=== PATIENT | female | born 1970 | race Caucasian/White ===

== ENCOUNTER 2018-05-20 08:21 | Emergency (ER) | payer SELFPAY ==
[2018-05-20] MEDS ORDERED: cloNIDine HCl 0.1 MG TAB ONE (08:56)
--- NOTE | 2018-05-20 09:07 | RAD REPORT ---
EXAM DESCRIPTION: CT - Head Brain Wo Cont - 05/20/2018 8:51 am CLINICAL HISTORY: Headache COMPARISON: None. TECHNIQUE: Computed axial tomography of the head was obtained. IV contrast was not requested. All CT scans are performed using dose optimization technique as appropriate and may include automated exposure control or mA/KV adjustment according to patient size. FINDINGS: An intracranial bleed is not seen . The ventricles are normal in caliber. No extra-axial fluid collection is noted. Fluid within the sinuses/ mastoids is not seen. IMPRESSION: No acute intracranial abnormality is seen. If patient's symptoms persist MRI of the bra in would be recommended.
[2018-05-20 09:08] LABS: Absolute Lymphocytes (CBC) 2.4 K/uL (0.7-4.9); Absolute Monocytes 0.8 K/uL (0.1-1.3); Absolute Neutrophil 7.3 K/uL (1.8-8.0); Basophils % 0.5 % (0-1.3); Eosinophils % 2.8 % (0-4.4); Hematocrit 34.3 % (36.0-45.0); MCV 83.5 fL (80-100); MPV 10.1 fL (7.6-11.3); RBC Red Blood Cell Count 4.11 M/uL (3.86-4.86)
[2018-05-20 09:09] LABS: Protime INR 1.12
[2018-05-20 09:29] LABS: ALT/SGPT 22 U/L (12-78); AST/SGOT 16 U/L (15-37); Albumin 3.3 g/dL (3.4-5.0); Alkaline Phosphatase 76 U/L (45-117); BUN Blood Urea Nitrogen 18 mg/dL (7-18); Bicarbonate 29 mmol/L (21-32); Bilirubin Direct < 0.1 mg/dL (0-0.2); Bilirubin Total 0.1 mg/dL (0.2-1.0); Glucose Level 97 mg/dL (74-106); Magnesium 2.5 mg/dL (1.8-2.4); NT PRO-BNP 257 pg/mL (<125); Potassium 3.9 mmol/L (3.5-5.1); Protein, Total 7.1 g/dL (6.4-8.2); Sodium Level 141 mmol/L (136-145); Troponin (Emerg Dept Use Only) < 0.02 ng/mL (0.0-0.045)
--- NOTE | 2018-05-20 09:29 | RAD REPORT ---
EXAM DESCRIPTION: Fat[facility] Single View05/20/2018 9:22 am CLINICAL HISTORY: Chest pain COMPARISON: none FINDINGS: The lungs appear clear of acute infiltrate. The heart is borderline enlarged IMPRESSION: No acute abnormalities displayed
--- NOTE | 2018-05-20 10:51 | EDPHYS ---
Physician Documentation [facility] Name: Kitty Tejeda Age: 47 yrs Sex: Female : 1970 Arrival Date: 05/20/2018 Time: 08:23 Bed 6 Private MD: ED Physician Igor Woodson HPI: 05/20 08:41 This 47 yrs old Female presents to ER via Ambulatory with complaints of kdr Headache. 08:41 The patient complains of pain to the left frontal area, left side of the back of head kdr and left temporal area. The patient describes the headache as aching, intermittent, unrelenting, waxing and waning. Onset: The symptoms/episode began/occurred She is unable to say how long she this particular BEACH has been ongoing. However, it has been at the current level for about a week. This BEACH is not different in location or severity from prior BEACH. She has a long BEACH history. She is new to the area and this ED. Associated signs and symptoms: Pertinent positives: Photophobia Very mild, Pertinent negatives: altered mental status, dizziness, fever, malaise, neck stiffness, paresthesias, rash, sinus congestion, sinus tenderness, vision changes, vision loss, vomiting, weakness, vertigo. Severity of symptoms: At its worst the pain was moderate, in the emergency department the pain is unchanged. Headache History: The patient has had previous headaches and this one is similar to previous episodes. The symptoms are alleviated by nothing. the symptoms are aggravated by nothing. The patient has experienced similar episodes in the past, chronically. The patient has not recently seen a physician, A normal BP for her would be about 200 SBP. Historical: - Allergies: 08:35 No Known Allergies; ss - PMHx: 08:35 Migraines; Hypertension; ss - Immunization history:: Adult Immunizations up to date. - Ebola Screening: : Patient denies exposure to infectious person Patient denies travel to an Ebola-affected area in the 21 days before illness onset. - Social history:: Smoking status: Patient/guardian denies using tobacco. ROS: 09:34 Constitutional: Negative for fever, chills, and weight loss, Eyes: Negative for injury, kdr pain, redness, and discharge, ENT: Negative for injury, pain, and discharge, Neck: Negative for injury, pain, and swelling, Cardiovascular: Negative for chest pain, palpitations, and edema, Respiratory: Negative for shortness of breath, cough, wheezing, and pleuritic chest pain, Abdomen/GI: Negative for abdominal pain, nausea, vomiting, diarrhea, and constipation, Back: Negative for injury and pain, : Negative for injury, bleeding, discharge, and swelling, MS/Extremity: Negative for injury and deformity, Skin: Negative for injury, rash, and discoloration, Psych: Negative for depression, anxiety, suicide ideation, homicidal ideation, and hallucinations, Allergy/Immunology: Negative for hives, rash, and allergies, Endocrine: Negative for neck swelling, polydipsia, polyuria, polyphagia, and marked weight changes, Hematologic/Lymphatic: Negative for swollen nodes, abnormal bleeding, and unusual bruising. 09:34 Neuro: Positive for headache, Negative for altered mental status, dizziness, gait disturbance, numbness, seizure activity, speech changes, syncope, near syncope, tingling, tinnitus, tremor, visual changes. Exam: 09:34 Constitutional: This is a well developed, well nourished patient who is awake, alert, kdr and in no acute distress. Head/Face: Normocephalic, atraumatic. Eyes: Pupils equal round and reactive to light, extra-ocular motions intact. Lids and lashes normal. Conjunctiva and sclera are non-icteric and not injected. Cornea within normal limits. Periorbital areas with no swelling, redness, or edema. Neck: Trachea midline, no thyromegaly or masses palpated, and no cervical lymphadenopathy. Supple, full range of motion without nuchal rigidity, or vertebral point tenderness. No Meningismus. Chest/axilla: Normal chest wall appearance and motion. Nontender with no deformity. No lesions are appreciated. Cardiovascular: Regular rate and rhythm with a normal S1 and S2. No gallops, murmurs, or rubs. Normal PMI, no JVD. No pulse deficits. Respiratory: Lungs have equal breath sounds bilaterally, clear to auscultation and percussion. No rales, rhonchi or wheezes noted. No increased work of breathing, no retractions or nasal flaring. Abdomen/GI: Soft, non-tender, with normal bowel sounds. No distension or tympany. No guarding or rebound. No evidence of tenderness throughout. Back: No spinal tenderness. No costovertebral tenderness. Full range of motion. Skin: Warm, dry with normal turgor. Normal color with no rashes, no lesions, and no evidence of cellulitis. MS/ Extremity: Pulses equal, no cyanosis. Neurovascular intact. Full, normal range of motion. Neuro: Awake and alert, GCS 15, oriented to person, place, time, and situation. Cranial nerves II-XII grossly intact. Motor strength 5/5 in all extremities. Sensory grossly intact. Cerebellar exam normal. Normal gait. Psych: Awake, alert, with orientation to person, place and time. Behavior, mood, and affect are within normal limits. Vital Signs: 08:35 BP 227 / 138; Pulse 78; Resp 18; Pulse Ox 100% on R/A; Weight 124.74 kg; Height 5 ft. 4 ss in. (162.56 cm); Pain 0/10; 09:04 BP 214 / 118; Pulse 76; Resp 24; Pulse Ox 100% ; sv 09:45 BP 160 / 94; Pulse 67; Resp 16; Pulse Ox 97% on R/A; hb 10:16 BP 154 / 93; Pulse 63; Resp 14; Pulse Ox 99% ; sv 11:15 BP 142 / 80; Pulse 66; Resp 15; Pulse Ox 100% on R/A; hb 08:35 Body Mass Index 47.20 (124.74 kg, 162.56 cm) ss MDM: 09:34 Data reviewed: vital signs, nurses notes, lab test result(s), radiologic studies. kdr Counseling: I had a detailed discussion with the patient and/or guardian regarding: the historical points, exam findings, and any diagnostic results supporting the discharge/admit diagnosis, lab results, radiology results. 10:50 Patient medically screened. kdr 05/20 08:41 Order name: Basic Metabolic Panel; Complete Time: 10:31 kdr 05/20 08:41 Order name: CBC with Diff; Complete Time: 10: kdr 05/20 08:41 Order name: LFT's; Complete Time: 10: kdr 05/20 08:41 Order name: Magnesium; Complete Time: : kdr 05/20 08:41 Order name: NT PRO-BNP; Complete Time: 10: kdr 05/20 08:41 Order name: PT-INR; Complete Time: 10: kdr 05/20 08:41 Order name: Troponin (emerg Dept Use Only); Complete Time: 10: [facility] 05/20 08:41 Order name: XRAY Chest (1 view); Complete Time: 10: [facility] 05/20 08:41 Order name: EKG; Complete Time: 08:42 [facility] 05/20 08:41 Order name: Cardiac monitoring; Complete Time: 09:00 [facility] 05/20 08:41 Order name: EKG - Nurse/Tech; Complete Time: 09:00 [facility] 05/20 08:41 Order name: IV Saline Lock; Complete Time: 09:00 [facility] 05/20 08:41 Order name: CT Head Brain wo Cont; Complete Time: 10: [facility] 05/20 08:41 Order name: Labs collected and sent; Complete Time: 09:00 [facility] 05/20 08:41 Order name: O2 Per Protocol; Complete Time: 09:00 [facility] 05/20 08:41 Order name: O2 Sat Monitoring; Complete Time: 09:00 kdr Administered Medications: 08:55 Drug: cloNIDine 0.2 mg Route: PO; hb 09:45 Follow up: Response: No adverse reaction hb Disposition: 05/20/18 10:50 Discharged to Home. Impression: Headache, Hypertensive heart disease. - Condition is Stable. - Discharge Instructions: General Headache Without Cause, Hypertension, [id number]. - Prescriptions for Clonidine 0.1 mg Oral Tablet - take 1 tablet by ORAL route every 12 hours; 60 tablet. - Medication Reconciliation Form, Thank You Letter form. - Follow up: Private Physician; When: 2 - 3 days; Reason: If symptoms return, Further diagnostic work-up, Recheck today's complaints, Continuance of care, Re-evaluation by your physician. - Problem is an acute exacerbation. - Symptoms have improved. Signatures: Dispatcher [employer] EDMT Igor Woodson MD MD [facility] Edna Becker RN RN Anila Orozco RN RN Corrections: (The following items were deleted from the chart) 11:26 10:50 05/20/2018 10:50 Discharged to Home. Impression: Headache; Hypertensive heart hb disease. Condition is Stable. Forms are Medication Reconciliation Form, Thank You Letter, Antibiotic Education, Prescription Opioid Use. Follow up: Private Physician; When: 2 - 3 days; Reason: If symptoms return, Further diagnostic work-up, Recheck today's complaints, Continuance of care, Re-evaluation by your physician. Problem is an acute exacerbation. Symptoms have improved. kdr
--- NOTE | 2018-05-20 10:51 | ER ---
Nurse's Notes [facility] Name: Kitty Tejeda Age: 47 yrs Sex: Female : 1970 Arrival Date: 05/20/2018 Time: 08:23 Bed 6 Private MD: Diagnosis: Headache;Hypertensive heart disease Presentation: 05/20 08:33 Presenting complaint: Patient states: intermittent sharp headaches that began about 1 ss day ago to the top of head. Pt has high blood pressure and has taken her morning medications despite her BP of 227/138. Transition of care: patient was not received from another setting of care. Onset of symptoms was May 19, 2018. Risk Assessment: Do you want to hurt yourself or someone else? Patient reports no desire to harm self or others. Initial Sepsis Screen: Does the patient meet any 2 criteria? No. Patient's initial sepsis screen is negative. Does the patient have a suspected source of infection? No. Patient's initial sepsis screen is negative. Care prior to arrival: None. 08:33 Method Of Arrival: Ambulatory ss 08:33 Acuity: LAUREN 2 ss Triage Assessment: 08:45 Headache History: The patient has had previous headaches and this one is similar to hb previous episodes. Historical: - Allergies: 08:35 No Known Allergies; ss - PMHx: 08:35 Migraines; Hypertension; ss - Immunization history:: Adult Immunizations up to date. - Ebola Screening: : Patient denies exposure to infectious person Patient denies travel to an Ebola-affected area in the 21 days before illness onset. - Social history:: Smoking status: Patient/guardian denies using tobacco. Screenin:00 Abuse screen: Denies threats or abuse. Denies injuries from another. Nutritional hb screening: No deficits noted. Tuberculosis screening: No symptoms or risk factors identified. Fall Risk None identified. Assessment: 08:45 General: Appears in no apparent distress. Behavior is calm, cooperative. Pain: Pain hb currently is 3 out of 10 on a pain scale. Neuro: Level of Consciousness is awake, alert, obeys commands, Oriented to person, place, time, situation. Cardiovascular: Capillary refill < 3 seconds Patient's skin is warm and dry. Respiratory: Airway is patent Trachea midline Respiratory effort is even, unlabored, Respiratory pattern is regular, symmetrical, Breath sounds are clear bilaterally. GI: No signs and/or symptoms were reported involving the gastrointestinal system. : No signs and/or symptoms were reported regarding the genitourinary system. EENT: No signs and/or symptoms were reported regarding the EENT system. Derm: Skin is intact, is healthy with good turgor, Skin is pink, warm \T\ dry. Musculoskeletal: No signs and/or symptoms reported regarding the musculoskeletal system. 09:45 Reassessment: Patient appears in no apparent distress at this time. Patient and/or hb family updated on plan of care and expected duration. Pain level reassessed. Patient is alert, oriented x 3, equal unlabored respirations, skin warm/dry/pink. 10:39 Reassessment: Patient appears in no apparent distress at this time. No changes from hb previously documented assessment. Patient and/or family updated on plan of care and expected duration. Pain level reassessed. Patient is alert, oriented x 3, equal unlabored respirations, skin warm/dry/pink. 11:15 Reassessment: Patient appears in no apparent distress at this time. No changes from hb previously documented assessment. Patient and/or family updated on plan of care and expected duration. Pain level reassessed. Patient is alert, oriented x 3, equal unlabored respirations, skin warm/dry/pink. Vital Signs: 08:35 BP 227 / 138; Pulse 78; Resp 18; Pulse Ox 100% on R/A; Weight 124.74 kg; Height 5 ft. 4 ss in. (162.56 cm); Pain 0/10; 09:04 BP 214 / 118; Pulse 76; Resp 24; Pulse Ox 100% ; sv 09:45 BP 160 / 94; Pulse 67; Resp 16; Pulse Ox 97% on R/A; hb 10:16 BP 154 / 93; Pulse 63; Resp 14; Pulse Ox 99% ; sv 11:15 BP 142 / 80; Pulse 66; Resp 15; Pulse Ox 100% on R/A; hb 08:35 Body Mass Index 47.20 (124.74 kg, 162.56 cm) ED Course: 08:23 Patient arrived in ED. as 08:25 Igor Woodson MD is Attending Physician. kdr 08:35 Triage completed. ss 08:35 Arm band placed on right wrist. ss 08:[address] via wheelchair. sv 08:50 CT completed. Patient tolerated procedure well. Patient moved to CT via wheelchair. sj Patient moved back from CT. 08:52 CT Head Brain wo Cont In Process Unspecified. EDMS 08:56 Inserted saline lock: 22 gauge in right antecubital area, using aseptic technique. hb Blood collected. 09:00 Patient has correct armband on for positive identification. Placed in gown. Bed in low hb position. Call light in reach. Side rails up X 1. school lunch monitor on. Pulse ox on. NIBP on. 09:01 EKG done, by ocular care technologist. reviewed by Igor Woodson MD. at1 09:15 X-ray completed. Portable x-ray completed in exam room. Patient tolerated procedure jb2 well. 09:22 XRAY Chest (1 view) In Process Unspecified. EDMS 09:37 Anila Orozco, RN is Primary Nurse. hb 11:18 No provider procedures requiring assistance completed. IV discontinued, intact, hb bleeding controlled, No redness/swelling at site. Pressure dressing applied. Administered Medications: 08:55 Drug: cloNIDine 0.2 mg Route: PO; hb 09:45 Follow up: Response: No adverse reaction hb Outcome: 10:50 Discharge ordered by . kdr 11:18 Discharged to home ambulatory. hb 11:18 Condition: stable 11:18 Discharge instructions given to patient, Instructed on discharge instructions, follow up and referral plans. medication usage, Demonstrated understanding of instructions, follow-up care, medications, Prescriptions given X 1. 11:20 Patient left the ED. hb Signatures: Dispatcher [employer] Sun Quezada RN RN sv Rittger, Kevin, MD MD kdr Buechter, Jesse jb2 Avani Chang Amelia as Smirch, Shelby, RN RN Maria Elena Zavala, correctional sergeant EKG Tat1 Anila Orozco, RN RN hb Corrections: (The following items were deleted from the chart) 11:27 11:26 Patient left the ED. hb hb
--- NOTE | 2018-05-20 14:14 | EKG ---
Test Date: 2018-05-20 Test Time: 08:54:36 Projection Technician: ANNE MEASUREMENT RESULTS: Intervals: Rate: 74 AK: 168 QRSD: 100 QT: 442 QTc: 490 [place]: P: 66 AK: 168 QRS: 57 T: 48 INTERPRETIVE STATEMENTS: Normal sinus rhythm Prolonged QT Abnormal ECG No previous ECG available for comparison Electronically Signed On 05-20-18 14:13:57 MORPHOLOGY TEACHER by Trino Freeman
== END 2018-05-20 11:26 | disposition home or self-care (01) ==
LOC: ER 08:21
DX: I11.9 Hypertensive heart disease without heart failure (principal); I10 Essential (primary) hypertension
CPT/HCPCS: 36415; 70450; 71045; 80048; 80076; 83735; 83880; 84484; 85025; 85610; 93005; 99285

== ENCOUNTER 2018-09-22 07:53 | Emergency (ER) | payer SELFPAY ==
--- NOTE | 2018-09-22 08:13 | ER ---
Nurse's Notes [facility] Name: Kitty Tejeda Age: 47 yrs Sex: Female : 1970 Arrival Date: 09/22/2018 Time: 07:56 Bed 13 Private MD: None, None Diagnosis: Hypertension Presentation: 09/22 08:01 Presenting complaint: Patient states: "My blood pressure is really high because I'm out ss of my medication, and I need a refill." Pt c/o headache, but reports this is common when her blood pressure is very high. Denies weakness. Transition of care: patient was not received from another setting of care. Onset of symptoms is unknown. Risk Assessment: Do you want to hurt yourself or someone else? Patient reports no desire to harm self or others. Initial Sepsis Screen: Does the patient meet any 2 criteria? No. Patient's initial sepsis screen is negative. Does the patient have a suspected source of infection? No. Patient's initial sepsis screen is negative. Care prior to arrival: None. 08:01 Method Of Arrival: Ambulatory ss 08:01 Acuity: LAUREN 2 aa5 Historical: - Allergies: 08:10 No Known Allergies; aa5 - PMHx: 08:02 Hypertension; Migraines; ss - Immunization history:: Flu vaccine is not up to date. - Social history:: Smoking status: Patient/guardian denies using tobacco. - Ebola Screening: : No symptoms or risks identified at this time. - Family history:: not pertinent. - Hospitalizations: : No recent hospitalization is reported. Screenin:08 Abuse screen: Denies threats or abuse. Nutritional screening: No deficits noted. aa5 Tuberculosis screening: No symptoms or risk factors identified. Fall Risk None identified. Assessment: 08:05 General: Appears comfortable, Behavior is calm, cooperative, Pt states "I know my blood aa5 pressure is high and I've been out of my medicine for about a day". Pt reports she takes Hydrochlorothiazide 25 mg, atenolol up to 100 mg and lisinopril 40 mg. Pt states "my blood pressure gets up to like 250/155". Pain: Complains of pain in occipital area and base of the skull Pain does not radiate. Pain currently is 8 out of 10 on a pain scale. Quality of pain is described as aching, throbbing, Pain began this morning Is continuous. 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 Gait is steady, Speech is normal, Facial symmetry appears normal, Pupils are PERRLA, Reports headache occipital area, Denies weakness dizziness, paresthesias numbness. Cardiovascular: Heart tones S1 S2 present Rhythm is regular. Respiratory: Airway is patent Respiratory effort is even, unlabored, Respiratory pattern is regular, symmetrical. GI: No signs and/or symptoms were reported involving the gastrointestinal system. : No signs and/or symptoms were reported regarding the genitourinary system. EENT: No signs and/or symptoms were reported regarding the EENT system. Derm: Skin is pink, warm \\T\\ dry. Musculoskeletal: Range of motion: intact in all extremities. 08:54 Reassessment: Patient is alert, oriented x 3, equal unlabored respirations, skin aa5 warm/dry/pink. Vital Signs: 08:02 Pulse 87; Resp 17; Temp 98.7; Pulse Ox 96% on R/A; ss 08:02 BP 226 / 135; Pain 8/10; aa5 08:12 BP 221 / 120; Pulse 74; Resp 18 S; Pulse Ox 98% on R/A; aa5 08:46 BP 192 / 89; Pulse 63; Resp 16 S; Pulse Ox 96% on R/A; aa5 08:46 MD notified of BP, MD states to d/c pt now. aa5 ED Course: 07:56 Patient arrived in ED. mr 07:56 None, None is Private Physician. mr 07:56 None, None is Private Physician. mr 07:57 Saran Meza MD is Attending Physician. rn 07:57 Bertha Cancino RN is Primary Nurse. aa5 08:02 Arm band placed on right wrist. ss 08:05 Patient has correct armband on for positive identification. Bed in low position. Call aa5 light in reach. Side rails up X 1. 08:08 Triage completed. aa5 08:55 No provider procedures requiring assistance completed. Patient did not have IV access aa5 during this emergency room visit. Administered Medications: 08:12 Drug: cloNIDine 0.2 mg Route: PO; aa5 Outcome: 08:12 Discharge ordered by . rn 08:54 Discharged to home ambulatory. aa5 08:54 Condition: stable 08:54 Discharge instructions given to patient, Instructed on discharge instructions, follow up and referral plans. medication usage, Demonstrated understanding of instructions, follow-up care, medications, Prescriptions given X 3. 08:55 Patient left the ED. aa5 Signatures: Yumiko Shook MezaSaran MD MD rn Calderon, Audri, RN RN aa5 Smirch, Shelby, RN RN ss Corrections: (The following items were deleted from the chart) 08:14 08:02 BP 226 / 135; aa5 aa5 08:56 08:46 BP 192 / 89; Pulse 63bpm; Resp 16bpm; Spontaneous; Pulse Ox 96% RA; aa5 aa5
--- NOTE | 2018-09-22 08:13 | EDPHYS ---
Physician Documentation [facility] Name: Kitty Tejeda Age: 47 yrs Sex: Female : 1970 Arrival Date: 09/22/2018 Time: 07:56 Bed 13 Private MD: None, None ED Physician Saran Meza HPI: 09/22 08:08 This 47 yrs old Female presents to ER via Ambulatory with complaints of High rn Blood Pressure, Medication Refill. 08:08 The patient has elevated blood pressure and discovered this at home. Onset: The rn symptoms/episode began/occurred at an unknown time. Modifying factors: The symptoms are aggravated by discontinuation of meds, NAMRATA-inhibitor, clonidine, hydrochlorothiazide. Severity of symptoms: At its worst the blood pressure was severe, in the emergency department the blood pressure is unchanged. The patient has experienced similar episodes in the past. Reports chronic HTN for 20+ years, reports ran out of her medication yesterday and even so has been rationing it. Ran out of lisinopril/atenolol/HCTZ, otherwise reports mild headache but no focal neurological complaints. No chest pain/sob. No abd pain.. Historical: - Allergies: 08:10 No Known Allergies; aa5 - PMHx: 08:02 Hypertension; Migraines; ss - Immunization history:: Flu vaccine is not up to date. - Social history:: Smoking status: Patient/guardian denies using tobacco. - Ebola Screening: : No symptoms or risks identified at this time. - Family history:: not pertinent. - Hospitalizations: : No recent hospitalization is reported. ROS: 08:08 Constitutional: Negative for fever, chills, and weight loss, Eyes: Negative for injury, rn pain, redness, and discharge, Neck: Negative for injury, pain, and swelling, Cardiovascular: Negative for chest pain, palpitations, and edema, Respiratory: Negative for shortness of breath, cough, wheezing, and pleuritic chest pain, Abdomen/GI: Negative for abdominal pain, nausea, vomiting, diarrhea, and constipation, MS/Extremity: Negative for injury and deformity, Skin: Negative for injury, rash, and discoloration, Neuro: + headache, negative for focal weakness/numbness/seizure Exam: 08:08 Constitutional: This is a well developed, well nourished patient who is awake, alert, rn and in no acute distress. Head/Face: Normocephalic, atraumatic. Eyes: Pupils equal round and reactive to light, extra-ocular motions intact. Lids and lashes normal. Conjunctiva and sclera are non-icteric and not injected. Cornea within normal limits. Periorbital areas with no swelling, redness, or edema. Cardiovascular: Regular rate and rhythm , No pulse deficits. Respiratory: Lungs have equal breath sounds bilaterally, clear to auscultation, No increased work of breathing, no retractions or nasal flaring. Skin: Warm, dry with normal turgor. Normal color with no rashes, no lesions, and no evidence of cellulitis. MS/ Extremity: Pulses equal, no cyanosis. Neurovascular intact. Full, normal range of motion. Equal circumference. Neuro: Awake and alert, GCS 15, oriented to person, place, time, and situation. Cranial nerves II-XII grossly intact. Motor strength 5/5 in all extremities. Sensory grossly intact. Cerebellar exam normal. Normal gait. Vital Signs: 08:02 Pulse 87; Resp 17; Temp 98.7; Pulse Ox 96% on R/A; ss 08:02 BP 226 / 135; Pain 8/10; aa5 08:12 BP 221 / 120; Pulse 74; Resp 18 S; Pulse Ox 98% on R/A; aa5 08:46 BP 192 / 89; Pulse 63; Resp 16 S; Pulse Ox 96% on R/A; aa5 08:46 MD notified of BP, MD states to d/c pt now. aa5 MDM: 07:57 Patient medically screened. rn 08:08 Differential diagnosis: uncontrolled hypertension. Data reviewed: vital signs, nurses rn notes, and as a result, I will discharge patient. Counseling: I had a detailed discussion with the patient and/or guardian regarding: the historical points, exam findings, and any diagnostic results supporting the discharge/admit diagnosis, the need for outpatient follow up, to return to the emergency department if symptoms worsen or persist or if there are any questions or concerns that arise at home. Special discussion: I discussed with the patient/guardian in detail that at this point there is no indication for admission to the hospital. It is understood, however, that if the symptoms persist or worsen the patient needs to return immediately for re-evaluation. Based on the history and exam findings, there is no indication for further emergent testing or inpatient evaluation. I discussed with the patient/guardian the need to see the primary care provider for further evaluation of the symptoms. ED course: Normal neuro exam, no chest pain, reports this is average BP for her, has been difficult to control for years, will refill medication and dc home. . 08:12 Counseling: I had a detailed discussion with the patient and/or guardian regarding: the rn presence of at least one elevated blood pressure reading (>120/80) during this emergency department visit. Special discussion: I have referred the patient to see his PCP for further evaluation of high blood pressure. Administered Medications: 08:12 Drug: cloNIDine 0.2 mg Route: PO; aa5 Disposition: 09/22/18 08:12 Discharged to Home. Impression: Hypertension. - Condition is Stable. - Discharge Instructions: Hypertension. - Prescriptions for lisinopril 40 mg Oral tablet - take 1 tablet by ORAL route once daily; 30 tablet. Atenolol 100 mg Oral Tablet - take 1 tablet by ORAL route once daily; 30 tablet. Hydrochlorothiazide 50 mg Oral Tablet - take 1 tablet by ORAL route once daily; 30 tablet. - Medication Reconciliation Form, Thank You Letter, Antibiotic Education, Prescription Opioid Use form. - Follow up: Private Physician; When: As needed; Reason: Recheck today's complaints, Re-evaluation by your physician. - Problem is new. - Symptoms have improved. Signatures: Saran Meza MD MD rn Calderon, Audri, RN RN aa5 Edna Becker RN RN ss Corrections: (The following items were deleted from the chart) 08:55 08:12 09/22/2018 08:12 Discharged to Home. Impression: Hypertension. Condition is aa5 Stable. Discharge Instructions: Hypertension. Prescriptions for lisinopril 40 mg Oral tablet - take 1 tablet by ORAL route once daily; 30 tablet, Atenolol 100 mg Oral Tablet - take 1 tablet by ORAL route once daily; 30 tablet, Hydrochlorothiazide 50 mg Oral Tablet - take 1 tablet by ORAL route once daily; 30 tablet. and Forms are Medication Reconciliation Form, Thank You Letter, Antibiotic Education, Prescription Opioid Use. Follow up: Private Physician; When: As needed; Reason: Recheck today's complaints, Re-evaluation by your physician. Problem is new. Symptoms have improved. rn
[2018-09-22] MEDS ORDERED: cloNIDine HCl 0.1 MG TAB ONE (08:23)
== END 2018-09-22 08:55 | disposition home or self-care (01) ==
LOC: ER 07:53
DX: I10 Essential (primary) hypertension (principal)
CPT/HCPCS: 99283

== ENCOUNTER 2018-11-11 08:16 | Emergency (ER) | payer SELFPAY ==
--- NOTE | 2018-11-11 08:59 | RAD REPORT ---
EXAM DESCRIPTION: RAD - Chest Single View - 11/11/2018 8:44 am CLINICAL HISTORY: Cough, hypertension COMPARISON: April 2018 TECHNIQUE: AP portable chest image was obtained 0843 hours . FINDINGS: Lungs are clear. Lung markings are similar to comparison. Trachea is midline. Heart and va sculature are normal. No measurable pleural effusion and no pneumothorax. No acute bony abnormality s een. No acute aortic findings suspected. IMPRESSION: No acute cardiopulmonary process. No significant interval changes.
[2018-11-11 09:45] LABS: Barbiturates NEGATIVE (NEGATIVE); Benzodiazepines NEGATIVE (NEGATIVE); Cocaine NEGATIVE (NEGATIVE); METHAMPHETAM NEGATIVE (NEGATIVE); Methadone NEGATIVE (NEGATIVE); Opiates NEGATIVE (NEGATIVE); Phencyclidine NEGATIVE (NEGATIVE); THC Cannibis NEGATIVE (NEGATIVE)
[2018-11-11 09:51] LABS: Absolute Lymphocytes (CBC) 1.7 K/uL (0.7-4.9); Absolute Monocytes 0.8 K/uL (0.1-1.3); Absolute Neutrophil 6.6 K/uL (1.8-8.0); Basophils % 0.4 % (0-1.3); Hematocrit 40.9 % (36.0-45.0); MPV 10.6 fL (7.6-11.3); Monocytes % 8.5 % (3.3-12.3); RBC Red Blood Cell Count 4.99 M/uL (3.86-4.86)
[2018-11-11 09:52] LABS: Protime INR 1.05
[2018-11-11 10:02] LABS: ALT/SGPT 19 U/L (12-78); AST/SGOT 14 U/L (15-37); Alkaline Phosphatase 78 U/L (45-117); BUN Blood Urea Nitrogen 23 mg/dL (7-18); Bicarbonate 31 mmol/L (21-32); Bilirubin Direct < 0.1 mg/dL (0-0.2); Bilirubin Total 0.2 mg/dL (0.2-1.0); Glucose Level 108 mg/dL (74-106); Magnesium 2.1 mg/dL (1.8-2.4); NT PRO-BNP 130 pg/mL (<125); Potassium 3.1 mmol/L (3.5-5.1); Protein, Total 8.2 g/dL (6.4-8.2); Sodium Level 142 mmol/L (136-145); Troponin (Emerg Dept Use Only) < 0.02 ng/mL (0.0-0.045)
[2018-11-11] MEDS ORDERED: HYDRALAZINE HCL 20 MG/ML VIAL ONE ×2 (10:07→10:30)
[2018-11-11] MEDS ORDERED: hydroCHLOROthiazide 25 MG TAB ONE (10:07)
[2018-11-11] MEDS ORDERED: AMLODIPINE 5 MG TAB ONE (10:07)
[2018-11-11] MEDS ORDERED: LISINOPRIL 10 MG TAB ONE (10:07)
[2018-11-11 10:38] LABS: Urine Blood NEGATIVE (NEG); Urine Glucose NEGATIVE (NEG); Urine Protein NEGATIVE (NEG); Urine Specific Gravity 1.025 (1.005-1.030); Urine pH 5.5 (5.0-7.0)
--- NOTE | 2018-11-11 10:40 | ER ---
Nurse's Notes [facility] Name: Kitty Tejeda Age: 48 yrs Sex: Female : 1970 Arrival Date: 11/11/2018 Time: 08:20 Bed 7 Private MD: Diagnosis: Essential (primary) hypertension Presentation: 11/11 08:28 Presenting complaint: Patient states: out of BP meds x 1 week. Transition of care: ss patient was not received from another setting of care. Onset of symptoms is unknown. Risk Assessment: Do you want to hurt yourself or someone else? Patient reports no desire to harm self or others. Initial Sepsis Screen: Does the patient meet any 2 criteria? HR > 90 bpm. Does the patient have a suspected source of infection? No. Patient's initial sepsis screen is negative. Care prior to arrival: None. 08:28 Method Of Arrival: Ambulatory ss 08:28 Acuity: LAUREN 2 ss Triage Assessment: 10:58 General: Appears in no apparent distress. Behavior is calm, cooperative. 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 - Social history:: Smoking status: Patient/guardian denies using tobacco. - Ebola Screening: : Patient denies exposure to infectious person Patient denies travel to an Ebola-affected area in the 21 days before illness onset. - Family history:: not pertinent. Screenin:20 Abuse screen: Denies threats or abuse. Denies injuries from another. Nutritional iw screening: No deficits noted. Tuberculosis screening: No symptoms or risk factors identified. Fall Risk IV access (20 points). Assessment: 09:30 General: Appears in no apparent distress. Behavior is calm, cooperative. Pain: Denies iw pain. Neuro: Level of Consciousness is awake, alert, obeys commands, Moves all extremities. Cardiovascular: Patient's skin is warm and dry. Respiratory: Respiratory effort is even, unlabored. Derm: Skin is intact, is healthy with good turgor. Musculoskeletal: Range of motion: intact in all extremities. 10:19 Reassessment: Patient appears in no apparent distress at this time. Patient and/or iw family updated on plan of care and expected duration. Pain level reassessed. Patient is alert, oriented x 3, equal unlabored respirations, skin warm/dry/pink. Pain: Complains of pain in head. 10:56 Reassessment: Patient appears in no apparent distress at this time. Patient and/or iw family updated on plan of care and expected duration. Pain level reassessed. Patient is alert, oriented x 3, equal unlabored respirations, skin warm/dry/pink. Vital Signs: 08:30 BP 231 / 131; Pulse 116; Resp 20; Temp 98.4(TE); Pulse Ox 97% on R/A; Weight 121.56 kg; ss Height 5 ft. 4 in. (162.56 cm); 09:15 BP 224 / 128; Pulse 103; Resp 20; Pulse Ox 96% ; ms 10:18 BP 186 / 110; Pulse 99; Resp 16; Pulse Ox 100% on R/A; iw 10:38 BP 182 / 86; Pulse 95; Resp 16 S; Pulse Ox 99% on R/A; iw 10:55 BP 173 / 86; Pulse 98; Resp 16; Pulse Ox 99% on R/A; iw 08:30 Body Mass Index 46.00 (121.56 kg, 162.56 cm) ss ED Course: 08:20 Patient arrived in ED. rg4 08:28 Bobby Michele MD is Attending Physician. chintan 08:29 Triage completed. ss 08:30 Arm band placed on right wrist. ss 08:36 Adelaida Hercules, RN is Primary Nurse. iw 08:43 XRAY Chest (1 view) In Process Unspecified. EDMS 09:14 Initial lab(s) drawn, by mo, sent to lab. Urine collected: clean catch specimen, clear, ms Amount Voided: 40mL EKG done, by weatherization technician. reviewed by Bobby Michele MD. Inserted saline lock: 20 gauge in right forearm, using aseptic technique. Blood collected. 09:30 Patient has correct armband on for positive identification. iw 10:40 Evens Olguin MD is Referral Physician. chintan 10:55 No provider procedures requiring assistance completed. IV discontinued, intact, iw bleeding controlled, No redness/swelling at site. Pressure dressing applied. Administered Medications: 09:58 Drug: hydrALAZINE 10 mg Route: IV; Rate: per protocol; Site: right forearm; iw 09:58 Drug: HydrALAZINE 25 mg Route: PO; iw 09:58 Drug: Norvasc 10 mg Route: PO; iw 09:59 Drug: Lisinopril 20 mg Route: PO; iw 10:18 Drug: hydrALAZINE 20 mg Route: IV; Rate: per protocol; Site: right forearm; iw 10:54 Drug: Potassium Effervescent Tablet 50 mEq Route: PO; iw Outcome: 10:39 Discharge ordered by MD. woodson 10:58 Discharged to home ambulatory. iw 10:58 Condition: good 10:58 Discharge instructions given to patient, Instructed on discharge instructions, follow up and referral plans. Demonstrated understanding of instructions, follow-up care, medications, Prescriptions given X 3. 10:59 Patient left the ED. iw Signatures: Dispatcher [employer] EDBobby Parekh MD MD cha Williams, Irene, RN RN Kasandra Williamson ms, Shelby, RN RN ss Garcia, Rubi rg4
--- NOTE | 2018-11-11 10:40 | EDPHYS ---
Physician Documentation [facility] Name: Kitty Tejeda Age: 48 yrs Sex: Female : 1970 Arrival Date: 11/11/2018 Time: 08:20 Bed 7 Private MD: SHONDA Physician Bobby Michele HPI: 11/11 10:36 This 48 yrs old Female presents to ER via Ambulatory with complaints of High chintan Blood Pressure. 10:36 The patient has elevated blood pressure and discovered this at home. Onset: The chintan symptoms/episode began/occurred 1 week(s) ago. Modifying factors: The symptoms are aggravated by activity, The symptoms are alleviated by remaining still. Associated signs and symptoms: The patient has no apparent associated signs or symptoms. The patient has not experienced similar symptoms in the past. 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 - Social history:: Smoking status: Patient/guardian denies using tobacco. - Ebola Screening: : Patient denies exposure to infectious person Patient denies travel to an Ebola-affected area in the 21 days before illness onset. - Family history:: not pertinent. ROS: 10:36 Constitutional: Negative for fever, chills, and weight loss, Eyes: Negative for injury, chintan pain, redness, and discharge, ENT: Negative for injury, pain, and discharge, Neck: Negative for injury, pain, and swelling, Cardiovascular: Negative for chest pain, palpitations, and edema, Respiratory: Negative for shortness of breath, cough, wheezing, and pleuritic chest pain, Abdomen/GI: Negative for abdominal pain, nausea, vomiting, diarrhea, and constipation, Back: Negative for injury and pain, : Negative for injury, bleeding, discharge, and swelling, MS/Extremity: Negative for injury and deformity, Skin: Negative for injury, rash, and discoloration, Psych: Negative for depression, anxiety, suicide ideation, homicidal ideation, and hallucinations, Allergy/Immunology: Negative for hives, rash, and allergies, Endocrine: Negative for neck swelling, polydipsia, polyuria, polyphagia, and marked weight changes, Hematologic/Lymphatic: Negative for swollen nodes, abnormal bleeding, and unusual bruising. 10:36 Neuro: Positive for headache. Exam: 10:36 Constitutional: This is a well developed, well nourished patient who is awake, alert, chintan and in no acute distress. Head/Face: Normocephalic, atraumatic. Eyes: Pupils equal round and reactive to light, extra-ocular motions intact. Lids and lashes normal. Conjunctiva and sclera are non-icteric and not injected. Cornea within normal limits. Periorbital areas with no swelling, redness, or edema. ENT: Nares patent. No nasal discharge, no septal abnormalities noted. Tympanic membranes are normal and external auditory canals are clear. Oropharynx with no redness, swelling, or masses, exudates, or evidence of obstruction, uvula midline. Mucous membranes moist. Neck: Trachea midline, no thyromegaly or masses palpated, and no cervical lymphadenopathy. Supple, full range of motion without nuchal rigidity, or vertebral point tenderness. No Meningismus. Chest/axilla: Normal chest wall appearance and motion. Nontender with no deformity. No lesions are appreciated. Cardiovascular: Regular rate and rhythm with a normal S1 and S2. No gallops, murmurs, or rubs. Normal PMI, no JVD. No pulse deficits. Respiratory: Lungs have equal breath sounds bilaterally, clear to auscultation and percussion. No rales, rhonchi or wheezes noted. No increased work of breathing, no retractions or nasal flaring. Abdomen/GI: Soft, non-tender, with normal bowel sounds. No distension or tympany. No guarding or rebound. No evidence of tenderness throughout. Back: No spinal tenderness. No costovertebral tenderness. Full range of motion. Female : Normal external genitalia. Skin: Warm, dry with normal turgor. Normal color with no rashes, no lesions, and no evidence of cellulitis. MS/ Extremity: Pulses equal, no cyanosis. Neurovascular intact. Full, normal range of motion. Neuro: Awake and alert, GCS 15, oriented to person, place, time, and situation. Cranial nerves II-XII grossly intact. Motor strength 5/5 in all extremities. Sensory grossly intact. Cerebellar exam normal. Normal gait. Psych: Awake, alert, with orientation to person, place and time. Behavior, mood, and affect are within normal limits. Vital Signs: 08:30 BP 231 / 131; Pulse 116; Resp 20; Temp 98.4(TE); Pulse Ox 97% on R/A; Weight 121.56 kg; ss Height 5 ft. 4 in. (162.56 cm); 09:15 BP 224 / 128; Pulse 103; Resp 20; Pulse Ox 96% ; ms 10:18 BP 186 / 110; Pulse 99; Resp 16; Pulse Ox 100% on R/A; iw 10:38 BP 182 / 86; Pulse 95; Resp 16 S; Pulse Ox 99% on R/A; iw 10:55 BP 173 / 86; Pulse 98; Resp 16; Pulse Ox 99% on R/A; iw 08:30 Body Mass Index 46.00 (121.56 kg, 162.56 cm) ss MDM: 08:28 Patient medically screened. [facility] 10:36 Data reviewed: vital signs, nurses notes, lab test result(s), EKG, radiologic studies. [facility] 11/11 08:32 Order name: Basic Metabolic Panel; Complete Time: 10:09 [facility] 11/11 08:32 Order name: CBC with Diff; Complete Time: 10:09 [facility] 11/11 08:32 Order name: LFT's; Complete Time: 10:09 [facility] 11/11 08:32 Order name: Magnesium; Complete Time: 10:09 [facility] 11/11 08:32 Order name: NT PRO-BNP; Complete Time: 10:09 [facility] 11/11 08:32 Order name: PT-INR; Complete Time: 10:09 [facility] 11/11 08:32 Order name: Troponin (emerg Dept Use Only); Complete Time: 10:09 [facility] 11/11 08:32 Order name: XRAY Chest (1 view); Complete Time: 09:53 [facility] 11/11 08:32 Order name: Urine Culture [facility] 11/11 08:52 Order name: UDS; Complete Time: 09:53 [facility] 11/11 09:17 Order name: Urine Dipstick--Ancillary (enter results) 11/11 08:32 Order name: EKG; Complete Time: 08:33 [facility] 11/11 08:32 Order name: Cardiac monitoring; Complete Time: 08:33 [facility] 11/11 08:32 Order name: EKG - Nurse/Tech; Complete Time: 09:14 [facility] 11/11 08:32 Order name: IV Saline Lock; Complete Time: 09:14 [facility] 11/11 08:32 Order name: Labs collected and sent; Complete Time: 09:14 [facility] 11/11 08:32 Order name: O2 Per Protocol; Complete Time: 08:33 [facility] 11/11 08:32 Order name: O2 Sat Monitoring; Complete Time: 08:34 [facility] 11/11 08:32 Order name: Urine Dipstick-Ancillary (obtain specimen); Complete Time: 09:14 [facility] Administered Medications: 09:58 Drug: hydrALAZINE 10 mg Route: IV; Rate: per protocol; Site: right forearm; iw 09:58 Drug: HydrALAZINE 25 mg Route: PO; iw 09:58 Drug: Norvasc 10 mg Route: PO; iw 09:59 Drug: Lisinopril 20 mg Route: PO; iw 10:18 Drug: hydrALAZINE 20 mg Route: IV; Rate: per protocol; Site: right forearm; iw 10:54 Drug: Potassium Effervescent Tablet 50 mEq Route: PO; iw Disposition: 11/11/18 10:39 Discharged to Home. Impression: Essential (primary) hypertension. - Condition is Stable. - Discharge Instructions: Hypertension, Hypertension, Pola-cm-Tsma, How to Take Your Blood Pressure, [id number], Managing Your Hypertension. - Prescriptions for Norvasc 10 mg Oral Tablet - take 1 tablet by ORAL route once daily; 30 tablet. Lisinopril 20 mg Oral Tablet - take 1 tablet by ORAL route every 12 hours; 60 tablet. Hydralazine 25 mg Oral Tablet - take 1 tablet by ORAL route 3 times per day with food; 30 tablet. - Medication Reconciliation Form, Thank You Letter, Antibiotic Education, Prescription Opioid Use form. - Follow up: Private Physician; When: 2 - 3 days; Reason: Recheck today's complaints, Continuance of care, Re-evaluation by your physician. Follow up: Evens Olguin MD; When: 2 - 3 days; Reason: Recheck today's complaints, Continuance of care, Re-evaluation by your physician. - Problem is new. - Symptoms have improved. Signatures: Dispatcher [employer] Bobby Marshall MD MD cha Williams, Irene, RN RN iw Edna Becker RN RN ss Corrections: (The following items were deleted from the chart) 10:40 10:39 11/11/2018 10:39 Discharged to Home. Impression: Essential (primary) chintan hypertension. Condition is Stable. Forms are Medication Reconciliation Form, Thank You Letter, Antibiotic Education, Prescription Opioid Use. Follow up: Private Physician; When: 2 - 3 days; Reason: Recheck today's complaints, Continuance of care, Re-evaluation by your physician. Problem is new. Symptoms have improved. chintan 10:59 10:40 11/11/2018 10:39 Discharged to Home. Impression: Essential (primary) iw hypertension. Condition is Stable. Forms are Medication Reconciliation Form, Thank You Letter, Antibiotic Education, Prescription Opioid Use. Follow up: Private Physician; When: 2 - 3 days; Reason: Recheck today's complaints, Continuance of care, Re-evaluation by your physician. Follow up: Evens Olguin; When: 2 - 3 days; Reason: Recheck today's complaints, Continuance of care, Re-evaluation by your physician. Problem is new. Symptoms have improved. chintan
[2018-11-11] MEDS ORDERED: ACETAMINOPHEN 500 MG TAB ONE (11:04)
--- NOTE | 2018-11-11 16:46 | EKG ---
Test Date: 2018-11-11 Test Time: 08:41:59 Baby Sitter: ANNE MEASUREMENT RESULTS: Intervals: Rate: 103 [place]: 172 QRSD: 110 QT: 388 QTc: 508 [place]: P: 46 OH: 172 QRS: 26 T: -39 INTERPRETIVE STATEMENTS: Sinus tachycardia ST & T wave abnormality, consider inferior ischemia Abnormal ECG Compared to ECG 05/20/2018 08:54:36 ST (T wave) deviation now present Possible ischemia now present Sinus rhythm no longer present Prolonged QT interval no longer present Electronically Signed On 11-11-18 16:42:58 CDT by Evens Olguin
== END 2018-11-11 10:59 | disposition home or self-care (01) ==
LOC: ER 08:16
DX: I10 Essential (primary) hypertension (principal)
CPT/HCPCS: 36415; 71045; 80048; 80076; 80307; 81003; 83735; 83880; 84484; 85025; 85610; 87086; 87088; 93005; 96374; 99284; J0360

== ENCOUNTER 2019-10-27 16:18 | Emergency (ER) | payer OTHER ==
--- OUTSIDE RECORDS SUMMARY | 2019-10-27 16:20 | XMS REPORT ---
:1970 Author Organization [employer] Care Team Providers Name Role Phone Luis Alfredo Tijerina Provider Role Unavailable Allergies, Adverse Reactions, Alerts Substance Reaction Event Type N.K.D.A. Info Not Available Non Drug Allergy Problems Problem Type Condition Code Onset Dates Condition Statu s Problem Asymptomatic hypertensive urgency I16.0 Active Problem Adult BMI 45.0-49.9 kg/sq m Z68.42 Active Problem Repetitive intrusions of sleep G47.9 Active Problem Essential hypertension I10 Activ e Problem Daytime somnolence R40.0 Active Problem Adult BMI 40.0-44.9 kg/sq m Z68.41 Active Problem Non-seasonal allergic rhinitis, J30.89 Active unspecified trigger Problem Generalized anxiety disorder F41.1 Active Problem GERD without esophagitis K21.9 Act tomás Assessment Repetitive intrusions of sleep G47.9 Active Assessment Fatigue, unspecified type R53.83 Ac tive Assessment Daytime somnolence R40.0 Active Assessment Non-seasonal allergic rhinitis, J30.89 Active unspecified trigger Assessment GERD without esophagitis K21.9 Act tomás Assessment Adult BMI 45.0-49.9 kg/sq m Z68.42 Active Assessment Generalized anxiety disorder F41.1 Active Assessment Noncompliance w/medication treatment Z91.14 Active due to intermit use of medication Assessment Essential hypertension I10 Activ e Medications Medication Code Code Instructions Start End Status Dosage System Date Date B Complex [facility] [address]-13 Active not defined Lisinopril-Hyd [facility] 52737384974 20-12.5 MG Active 1 tablet rochlorothiazi Orally BID de Magnesium [facility] 18591740911 250 MG Orally Active 1 ta blet Once a day with a meal Amlodipine [facility] 40075640390 10 MG Orally Active 1 ta blet Besylate Once a day Atenolol [facility] 32487607807 100 MG Orally Active 1 tab let Once a day Vitamin D3 [facility] [address] Active not defined Potassium [facility] [address] Active not defined Results No Known Results Summary Purpose [employer] Submission
--- OUTSIDE RECORDS SUMMARY | 2019-10-27 16:20 | XMS REPORT ---
:1970 Author Organization eClinicalWorks Care Team Providers Name Role Phone Luis Alfredo Tijerina Provider Role Unavailable Allergies, Adverse Reactions, Alerts Substance Reaction Event Type N.K.D.A. Info Not Available Non Drug Allergy Problems Problem Type Condition Code Onset Dates Condition Statu s Assessment Generalized anxiety disorder F41.1 Active Assessment Essential hypertension I10 Activ e Assessment Adult BMI 45.0-49.9 kg/sq m Z68.42 Active Assessment Noncompliance w/medication treatment Z91.14 Active due to intermit use of medication Assessment Non-seasonal allergic rhinitis, J30.89 Active unspecified trigger Assessment GERD without esophagitis K21.9 Act tomás Problem Generalized anxiety disorder F41.1 Active Problem GERD without esophagitis K21.9 Act tomás Problem Essential hypertension I10 Activ e Problem Asymptomatic hypertensive urgency I16.0 Active Problem Adult BMI 45.0-49.9 kg/sq m Z68.42 Active Problem Adult BMI 40.0-44.9 kg/sq m Z68.41 Active Problem Non-seasonal allergic rhinitis, J30.89 Active unspecified trigger Medications Medication Code Code Instructions Start End Status Dosage System Date Date Magnesium [facility] 88823579765 250 MG Orally Active 1 ta blet Once a day with a meal Atenolol [facility] 16218525237 100 MG Orally Active 1 tab let Once a day Potassium [facility] 68653-[address]108 Active not defined B Complex [facility] [address]-07 Active not defined Vitamin D3 [facility] 66384-[address]223 Active not defined Amlodipine [facility] 58621771068 10 MG Orally Active 1 ta blet Besylate Once a day Lisinopril-Hyd [facility] 98741849859 20-12.5 MG Active 1 tablet rochlorothiazi Orally BID de Results No Known Results Summary Purpose eClinicalWorks Submission
--- OUTSIDE RECORDS SUMMARY | 2019-10-27 16:20 | XMS REPORT ---
:1970 Author Organization [facility] t Address [address] [place] [address] Care Team Providers Name Role Phone Unavailable Unavailable Unavailable Problems Condition Condition Condition Status Onset Resolution Last Treatin g Comments Name Details Category Date Date Treatment Clinician Date Essential Essential Diagnosis Active hypertensio hypertensio n n Asymptomati Asymptomati Problem Active c c hypertensiv hypertensiv e urgency e urgency Generalized Generalized Diagnosis Active anxiety anxiety disorder disorder GERD GERD Diagnosis Active without without esophagitis esophagitis Adult BMI Adult BMI Diagnosis Active 45.0-49.9 45.0-49.9 kg/sq m kg/sq m Adult BMI Adult BMI Problem Active 40.0-44.9 40.0-44.9 kg/sq m kg/sq m Non-seasona Non-seasona Diagnosis Active l allergic l allergic rhinitis, rhinitis, unspecified unspecified trigger trigger Noncomplian Noncomplian Diagnosis Active ce ce w/medicatio w/medicatio n treatment n treatment due to due to intermit intermit use of use of medication medication Repetitive Repetitive Diagnosis Active intrusions intrusions of sleep of sleep Daytime Daytime Diagnosis Active somnolence somnolence Fatigue, Fatigue, Diagnosis Active unspecified unspecified type type Allergies, Adverse Reactions, Alerts This patient has no known allergies or adverse reactions. Medications Ordered Filled Start Stop Current Ordering Indication Dosage Frequency Signature Comments Components Medication Medication Date Date Medication? Clinician (SIG) Name Name Lisinopril- Lisinopril- 2020-0 Yes Luis Alfredo 1 tabl et Hydrochloro Hydrochloro 3-12 [place] thiazide thiazide 00:00: 00 Amlodipine Amlodipine Yes Luis Alfredo 1 tablet Besylate Besylate [place] B Complex B Complex Yes Luis Alfredo not [place] defined Vitamin D3 Vitamin D3 Yes Luis Alfredo not [place] defined Atenolol Atenolol Yes Luis Alfredo 1 tablet [place] Potassium Potassium Yes Luis Alfredo not [place] defined Magnesium Magnesium Yes Luis Alfredo 1 tablet [place] with a meal Encounters Start End Encounter Admission Attending Care Care Encounter Date/Time Date/Time Type Type Clinicians Facility Department ID 2019 2019 [id number] 11:45:00 11:45:00 [facility] 2019-09-27 2019-09-27 [id number] 15:45:00 15:45:00 [facility] 2019-08-31 2019-08-31 [id number] 13:30:00 13:30:00 [facility]
--- OUTSIDE RECORDS SUMMARY | 2019-10-27 16:20 | XMS REPORT ---
:1970 Author Organization eClinicalWorks Care Team Providers Name Role Phone Luis Alfredo Tijerina Provider Role Unavailable Allergies, Adverse Reactions, Alerts Substance Reaction Event Type N.K.D.A. Info Not Available Non Drug Allergy Problems Problem Type Condition Code Onset Dates Condition Statu s Assessment Essential hypertension I10 Activ e Assessment Asymptomatic hypertensive urgency I16.0 Active Problem Generalized anxiety disorder F41.1 Active Problem GERD without esophagitis K21.9 Act tomás Problem Essential hypertension I10 Activ e Problem Asymptomatic hypertensive urgency I16.0 Active Problem Adult BMI 45.0-49.9 kg/sq m Z68.42 Active Problem Adult BMI 40.0-44.9 kg/sq m Z68.41 Active Problem Non-seasonal allergic rhinitis, J30.89 Active unspecified trigger Assessment Noncompliance w/medication treatment Z91.14 Active due to intermit use of medication Assessment Non-seasonal allergic rhinitis, J30.89 Active unspecified trigger Assessment GERD without esophagitis K21.9 Act tomás Assessment Adult BMI 45.0-49.9 kg/sq m Z68.42 Active Assessment Generalized anxiety disorder F41.1 Active Medications Medication Code Code Instructions Start End Status Dosage System Date Date Amlodipine Besylate [facility] 75833351259 10 MG Orally Act tomás 1 tablet Once a day Lisinopril-Hydrochlor [facility] 84803057131 20-12.5 MG August Act tomás 1 tablet othiazide Orally BID 2019 B Complex [facility] [address]-83 Active not defined Vitamin D3 [facility] [address]856 Active not defined Hydrochlorothiazide ND 47462847458 50 MG Orally [place] ctive 1 tablet Once a day in the morning Atenolol ND 98109140567 100 MG Orally Active 1 tab let Once a day Potassium [facility] 25753-[address]70 Active not defined Magnesium [facility] 89282056269 250 MG Orally Active 1 ta blet Once a day with a meal Results No Known Results Summary Purpose eClinicalWorks Submission
[2019-10-27 18:36] LABS: Absolute Lymphocytes (CBC) 1.8 K/uL (0.7-4.9); Basophils % 0.7 % (0-1.3); Hematocrit 44.7 % (36.0-45.0); Lymphocytes % 23.3 % (15.3-44.8); MPV 10.5 fL (7.6-11.3); RBC Red Blood Cell Count 5.05 M/uL (3.86-4.86)
[2019-10-27 18:41] LABS: Protime INR 1.07
[2019-10-27 18:55] LABS: ALT/SGPT 28 U/L (12-78); AST/SGOT 23 U/L (15-37); Albumin 3.6 g/dL (3.4-5.0); Alkaline Phosphatase 75 U/L (45-117); BUN Blood Urea Nitrogen 19 mg/dL (7-18); Bicarbonate 29 mmol/L (21-32); Bilirubin Direct < 0.1 mg/dL (0-0.2); Bilirubin Total 0.2 mg/dL (0.2-1.0); Glucose Level 94 mg/dL (74-106); Magnesium 2.4 mg/dL (1.8-2.4); NT PRO-BNP 218 pg/mL (<125); Potassium 4.3 mmol/L (3.5-5.1); Protein, Total 7.9 g/dL (6.4-8.2); Sodium Level 141 mmol/L (136-145); Troponin (Emerg Dept Use Only) < 0.02 ng/mL (0.0-0.045)
[2019-10-27] MEDS ORDERED: HYDRALAZINE HCL 10 MG TABLET ONE (19:00)
[2019-10-27] MEDS ORDERED: HYDRALAZINE HCL 20 MG/ML VIAL ONE (19:00)
--- NOTE | 2019-10-27 19:49 | EDPHYS ---
Physician Documentation [facility] Name: Kitty Tejeda Age: 49 yrs Sex: Female : 1970 Arrival Date: 10/27/2019 Time: 16:25 Bed 4 Private MD: SHONDA Physician Bobby Michele HPI: 10/26 18:30 This 49 yrs old Female presents to ER via Ambulatory with complaints of High chintan Blood Pressure. 18:30 The patient has elevated blood pressure and discovered this at home. Onset: The chintan symptoms/episode began/occurred 3 day(s) ago. Modifying factors: The symptoms are aggravated by activity, The symptoms are alleviated by remaining still. Associated signs and symptoms: The patient has no apparent associated signs or symptoms. Severity of symptoms: At its worst the blood pressure was moderate, in the emergency department the blood pressure is unchanged. The patient has not experienced similar symptoms in the past. 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 - Social history:: Smoking status: Patient denies any tobacco usage or history of. Patient/guardian denies using alcohol. - Family history:: not pertinent. ROS: 18:30 Constitutional: Negative for fever, chills, and weight loss, Eyes: Negative for injury, chintan pain, redness, and discharge, ENT: Negative for injury, pain, and discharge, Neck: Negative for injury, pain, and swelling, Cardiovascular: Negative for chest pain, palpitations, and edema, Respiratory: Negative for shortness of breath, cough, wheezing, and pleuritic chest pain, Abdomen/GI: Negative for abdominal pain, nausea, vomiting, diarrhea, and constipation, Back: Negative for injury and pain, : Negative for injury, bleeding, discharge, and swelling, MS/Extremity: Negative for injury and deformity, Skin: Negative for injury, rash, and discoloration, Psych: Negative for depression, anxiety, suicide ideation, homicidal ideation, and hallucinations, Allergy/Immunology: Negative for hives, rash, and allergies, Endocrine: Negative for neck swelling, polydipsia, polyuria, polyphagia, and marked weight changes, Hematologic/Lymphatic: Negative for swollen nodes, abnormal bleeding, and unusual bruising. 18:30 Neuro: Positive for headache. Exam: 18:30 Constitutional: This is a well developed, well nourished patient who is awake, alert, chintan and in no acute distress. Head/Face: Normocephalic, atraumatic. Eyes: Pupils equal round and reactive to light, extra-ocular motions intact. Lids and lashes normal. Conjunctiva and sclera are non-icteric and not injected. Cornea within normal limits. Periorbital areas with no swelling, redness, or edema. ENT: Nares patent. No nasal discharge, no septal abnormalities noted. Tympanic membranes are normal and external auditory canals are clear. Oropharynx with no redness, swelling, or masses, exudates, or evidence of obstruction, uvula midline. Mucous membranes moist. Neck: Trachea midline, no thyromegaly or masses palpated, and no cervical lymphadenopathy. Supple, full range of motion without nuchal rigidity, or vertebral point tenderness. No Meningismus. Chest/axilla: Normal chest wall appearance and motion. Nontender with no deformity. No lesions are appreciated. Cardiovascular: Regular rate and rhythm with a normal S1 and S2. No gallops, murmurs, or rubs. Normal PMI, no JVD. No pulse deficits. Respiratory: Lungs have equal breath sounds bilaterally, clear to auscultation and percussion. No rales, rhonchi or wheezes noted. No increased work of breathing, no retractions or nasal flaring. Abdomen/GI: Soft, non-tender, with normal bowel sounds. No distension or tympany. No guarding or rebound. No evidence of tenderness throughout. Back: No spinal tenderness. No costovertebral tenderness. Full range of motion. Female : Normal external genitalia. Skin: Warm, dry with normal turgor. Normal color with no rashes, no lesions, and no evidence of cellulitis. MS/ Extremity: Pulses equal, no cyanosis. Neurovascular intact. Full, normal range of motion. Neuro: Awake and alert, GCS 15, oriented to person, place, time, and situation. Cranial nerves II-XII grossly intact. Motor strength 5/5 in all extremities. Sensory grossly intact. Cerebellar exam normal. Normal gait. Psych: Awake, alert, with orientation to person, place and time. Behavior, mood, and affect are within normal limits. 18:30 Musculoskeletal/extremity: DVT Exam: No signs of deep vein thrombosis. no pain, no swelling, no tenderness, negative Homans' sign noted on exam, no appreciated bluish discoloration, no erythema, no increased warmth. 19:00 ECG was reviewed by the Attending Physician. [facility] Vital Signs: 16:28 BP 174 / 110; Pulse 63; Resp 16; Temp 98.4(O); Pulse Ox 98% ; Weight 130.18 kg; Height sv 5 ft. 4 in. (162.56 cm); 18:19 BP 200 / 113; Pulse 57; Resp 18 S; Pulse Ox 100% on R/A; ca1 19:04 BP 180 / 97; Pulse 55; Resp 17 S; Pulse Ox 100% on R/A; ca1 19:59 BP 166 / 106; Pulse 54; Resp 16; Temp 98.6; Pulse Ox 99% on R/A; sg 20:14 BP 168 / 96; Pulse 52; Resp 18; Pulse Ox 100% on R/A; sg 16:28 Body Mass Index 49.26 (130.18 kg, 162.56 cm) sv MDM: 18:10 Patient medically screened. [facility] 18:32 Data reviewed: vital signs, nurses notes, lab test result(s), EKG, radiologic studies, chintan plain films. 18:57 Differential diagnosis: hypertensive crisis, Malignant HTN. Data interpreted: Cardiac [facility] monitor: rate is 57 beats/min, Pulse oximetry: on room air is 100 %. Test interpretation: by ED physician or midlevel provider: ECG, plain radiologic studies. Counseling: I had a detailed discussion with the patient and/or guardian regarding: the historical points, exam findings, and any diagnostic results supporting the discharge/admit diagnosis, the presence of at least one elevated blood pressure reading (>120/80) during this emergency department visit, lab results, radiology results, the need for outpatient follow up. Physician consultation: Evens Olguin MD and will see patient in office, add hydralazine 10 mg po bid, low sodium diet. 19:41 Medication response: hydralizine good response, discussed results ans talked with dr chintan olguin, follow up, return if worse. 19:49 ED course: pt stable , no headache. [facility] 10/26 18:23 Order name: Basic Metabolic Panel; Complete Time: 19:40 [facility] 10/26 18:23 Order name: CBC with Diff; Complete Time: 19:40 [facility] 10/26 18:23 Order name: LFT's; Complete Time: 19:40 [facility] 10/26 18:23 Order name: Magnesium; Complete Time: 19:40 [facility] 10/26 18:23 Order name: NT PRO-BNP; Complete Time: 19:40 [facility] 10/26 18:23 Order name: PT-INR; Complete Time: 19:40 [facility] 10/26 18:23 Order name: Troponin (emerg Dept Use Only); Complete Time: 19:40 [facility] 10/26 18:23 Order name: EKG; Complete Time: 18:24 [facility] 10/26 18:23 Order name: Cardiac monitoring; Complete Time: 18:23 [facility] 10/26 18:23 Order name: EKG - Nurse/Tech; Complete Time: 18:24 [facility] 10/26 19:46 Order name: Chest Single View XRAY [facility] 10/26 18:23 Order name: IV Saline Lock; Complete Time: 18:24 [facility] 10/26 18:23 Order name: Labs collected and sent; Complete Time: 18:24 [facility] 10/26 18:23 Order name: O2 Per Protocol; Complete Time: 18:27 [facility] 10/26 18:23 Order name: O2 Sat Monitoring; Complete Time: 18:27 ca1 EC:00 Rate is 57 beats/min. Rhythm is regular. QRS [place] is Normal. OR interval is normal. QRS chintan interval is normal. QT interval is normal. No Q waves. T waves are Normal. No ST changes noted. Clinical impression: Normal ECG and Sinus bradycardia. Interpreted by me. Reviewed by me. Administered Medications: 18:55 Drug: hydrALAZINE 5 mg Route: IV; Rate: per protocol; Site: right antecubital; bp 18:55 Drug: hydrALAZINE 10 mg Route: PO; bp 19:56 Drug: Lisinopril 20 mg Route: PO; sg Disposition: 10/27/19 19:48 Discharged to Home. Impression: Essential (primary) hypertension. - Condition is Stable. - Discharge Instructions: Hypertension, Hypertension, [id number], How to Take Your Blood Pressure, [id number], Aspirin and Your Heart, Managing Your Hypertension. - Prescriptions for Lisinopril- Hydrochlorothiazide 20-12.5 mg Oral Tablet - take 1 tablet by ORAL route once daily; 20 tablet. Atenolol 100 mg Oral Tablet - take 1 tablet by ORAL route once daily; 20 tablet. Hydralazine 10 mg Oral Tablet - take 1 tablet by ORAL route 2 times per day with food; 40 tablet. - Medication Reconciliation Form, Thank You Letter, Antibiotic Education, Prescription Opioid Use form. - Follow up: Private Physician; When: 2 - 3 days; Reason: Recheck today's complaints, Continuance of care, Re-evaluation by your physician. Follow up: Evens Olguin MD; When: 2 - 3 days; Reason: Recheck today's complaints, Continuance of care, Re-evaluation by your physician. - Problem is new. - Symptoms have improved. Critical care time excluding procedures: 19:41 Critical care time: Bedside Care: 20 minutes, Consultation: 10 minutes. Total time: 30 chintan minutes Signatures: Dispatcher [employer] EDSun Dave RN Ash Kwan RN Bobby Aguiar MD MD cha Antunez, Elena RN Naseem Lott ea RN Estephanie Villalpando RN LEAH ca1 Corrections: (The following items were deleted from the chart) 20:32 19:48 10/27/2019 19:48 Discharged to Home. Impression: Essential (primary) ea hypertension. Condition is Stable. Forms are Medication Reconciliation Form, Thank You Letter, Antibiotic Education, Prescription Opioid Use. Follow up: Private Physician; When: 2 - 3 days; Reason: Recheck today's complaints, Continuance of care, Re-evaluation by your physician. Follow up: Evens Olguin; When: 2 - 3 days; Reason: Recheck today's complaints, Continuance of care, Re-evaluation by your physician. Problem is new. Symptoms have improved. chintan
--- NOTE | 2019-10-27 19:49 | ER ---
Nurse's Notes [facility] Name: Kitty Tejeda Age: 49 yrs Sex: Female : 1970 Arrival Date: 10/27/2019 Time: 16:25 Bed 4 Private MD: Diagnosis: Essential (primary) hypertension Presentation: 10/26 16:25 Chief complaint: Patient states: HTN with hx SPB 200s. Intermittent dizziness. Her PCP sv is aware of her HTN and has scheduled a sleep study for her. Risk Assessment: Do you want to hurt yourself or someone else? Patient reports no desire to harm self or others. Onset of symptoms is unknown. 16:25 Method Of Arrival: Ambulatory sv 16:28 Coronavirus screen: Proceed with normal triage. Patient denies a cough. Patient denies sv shortness of breath or difficulty breathing. Patient denies measured and/or subjective temperature greater than 100.4F prior to today's visit. Patient denies travel on a cruise ship or to a country the [facility] currently lists as an affected area. Patient denies contact with known and/or suspected case of COVID-19. Ebola Screen: No symptoms or risks identified at this time. Initial Sepsis Screen: Does the patient meet any 2 criteria?. 16:28 Initial Sepsis Screen: Does the patient meet any 2 criteria? No. Patient's initial sv sepsis screen is negative. Does the patient have a suspected source of infection? No. Patient's initial sepsis screen is negative. 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 - Social history:: Smoking status: Patient denies any tobacco usage or history of. Patient/guardian denies using alcohol. - Family history:: not pertinent. Screenin:19 Abuse screen: Denies threats or abuse. Denies injuries from another. Nutritional ca1 screening: No deficits noted. Tuberculosis screening: No symptoms or risk factors identified. Fall Risk IV access (20 points). Assessment: 18:19 General: Appears in no apparent distress. comfortable, Behavior is calm, cooperative, ca1 appropriate for age. Pain: Denies pain. Neuro: Level of Consciousness is awake, alert, obeys commands, Oriented to person, place, time, situation. Cardiovascular: Heart tones S1 S2 present Capillary refill < 3 seconds Patient's skin is warm and dry. Rhythm is sinus rhythm. Respiratory: Airway is patent Respiratory effort is even, unlabored, Respiratory pattern is regular, symmetrical, Breath sounds are clear bilaterally. GI: Abdomen is round non-distended, obese, Bowel sounds present X 4 quads. Abd is soft and non tender X 4 quads. : No signs and/or symptoms were reported regarding the genitourinary system. EENT: No signs and/or symptoms were reported regarding the EENT system. Derm: Skin is intact, is healthy with good turgor, Skin is pink, warm \T\ dry. Musculoskeletal: Circulation, motion, and sensation intact. Capillary refill < 3 seconds. 18:24 Neuro: Reports headache. ca1 18:24 Pain: Pain currently is 5 out of 10 on a pain scale. at worst was 7 out of 10 on a pain ca1 scale. Pain began 1 day ago. 20:27 Reassessment: Patient and/or family updated on plan of care and expected duration. Pain ea level reassessed. Patient is alert, oriented x 3, equal unlabored respirations, skin warm/dry/pink. Discharge instruction given to patient, verbalized the understanding of instruction. Pt left ED ambulatory tolerating well. Vital Signs: 16:28 BP 174 / 110; Pulse 63; Resp 16; Temp 98.4(O); Pulse Ox 98% ; Weight 130.18 kg; Height sv 5 ft. 4 in. (162.56 cm); 18:19 BP 200 / 113; Pulse 57; Resp 18 S; Pulse Ox 100% on R/A; ca1 19:04 BP 180 / 97; Pulse 55; Resp 17 S; Pulse Ox 100% on R/A; ca1 19:59 BP 166 / 106; Pulse 54; Resp 16; Temp 98.6; Pulse Ox 99% on R/A; sg 20:14 BP 168 / 96; Pulse 52; Resp 18; Pulse Ox 100% on R/A; sg 16:28 Body Mass Index 49.26 (130.18 kg, 162.56 cm) sv ED Course: 16:25 Patient arrived in ED. sv 16:28 Triage completed. sv 16:28 Arm band placed on. sv 18:09 Estephanie Montoya, RN is Primary Nurse. ca1 18:10 Bobby Michele MD is Attending Physician. chintan 18:19 Patient has correct armband on for positive identification. Bed in low position. Call ca1 light in reach. Side rails up X 1. Pulse ox on. NIBP on. Warm blanket given. 18:24 No provider procedures requiring assistance completed. Inserted saline lock: 20 gauge ca1 in right antecubital area, using aseptic technique. Blood collected. 19:05 Report given to LEAH [place]. ca1 19:47 Evens Olguin MD is Referral Physician. chintan 20:14 Chest Single View XRAY In Process Unspecified. EDMS 20:25 IV discontinued, intact, bleeding controlled, No redness/swelling at site. Pressure ea dressing applied. Administered Medications: 18:55 Drug: hydrALAZINE 5 mg Route: IV; Rate: per protocol; Site: right antecubital; bp 18:55 Drug: hydrALAZINE 10 mg Route: PO; bp 19:56 Drug: Lisinopril 20 mg Route: PO; sg Outcome: 19:48 Discharge ordered by . chintan 20:28 Discharged to home ambulatory. ea 20:28 Condition: stable 20:28 Discharge instructions given to patient, Instructed on discharge instructions, follow up and referral plans. medication usage, Demonstrated understanding of instructions, follow-up care, medications, Prescriptions given X 3. 20:32 Patient left the ED. ea Signatures: Dispatcher [employer] EDNM Sun Zamora RN RN sv Gay, Steven RN RN Bobby Sparks MD MD cha Antunez, Elena, RN RN ea Peltier, Brian, RN RN bp Estephanie Montoya RN RN ca1 Corrections: (The following items were deleted from the chart) 16:31 16:25 Chief complaint: Patient states: HTN with hx SPB 200s. sv sv 16:31 16:28 130.18 kg; Height 5 ft. 4 in.; BMI: 49.2; sv sv 16:31 16:28 Acuity: LAUREN 4 sv sv
[2019-10-27] MEDS ORDERED: lisinopriL 20 MG TAB ONE (19:58)
--- NOTE | 2019-10-27 20:35 | RAD REPORT ---
EXAM DESCRIPTION: Fatuma Single View10/27/2019 8:13 pm CLINICAL HISTORY: Hypertension COMPARISON: 2018 FINDINGS: The lungs appear clear of acute infiltrate. The heart is normal size IMPRESSION: No acute abnormalities displayed
[2019-10-27 20:50] VITALS: TEMP 98.6
[2019-10-27 20:52] VITALS: BP 168/96; O2SAT 100
--- NOTE | 2019-10-28 12:18 | EKG ---
Test Date: 2019-10-27 Test Time: 18:19:28 Computed Tomography Technologist: [facility] MEASUREMENT RESULTS: Intervals: Rate: 57 DC: 182 QRSD: 98 QT: 472 QTc: 459 [place]: P: 69 DC: 182 QRS: 65 T: 50 INTERPRETIVE STATEMENTS: Sinus bradycardia Otherwise normal ECG Compared to ECG 11/11/2018 08:41:59 Sinus tachycardia no longer present ST (T wave) deviation no longer present Possible ischemia no longer present Electronically Signed On 10-28-19 12:17:43 CDT by Evens Olguin
== END 2019-10-27 20:32 | disposition home or self-care (01) ==
LOC: ER 16:18
DX: I10 Essential (primary) hypertension (principal)
CPT/HCPCS: 93005; 85025; 80048; 36415; 83735; 85610; 80076; 84484; 83880; 71045; 96374; 99284; J0360

== ENCOUNTER 2021-11-14 01:20 | Inpatient (IN) | payer OTHER ==
--- OUTSIDE RECORDS SUMMARY | 2021-11-14 01:23 | XMS REPORT | Continuity of Care Document ---
:1970 Author Organization [facility] t Address [address] [place] [address] Care Team Providers Name Role Phone Jefferson [place] Attending Clinician Unavailable Problems This patient has no known problems. Allergies, Adverse Reactions, Alerts This patient has no known allergies or adverse reactions. Medications Ordered Filled Start Stop Current Ordering Indication Dosage Frequency Signature Comments Components Source Medication Medication Date Date Medication? Clinician (SIG) Name Name Lisinopril- Lisinopril- 0 Yes Luis Alfredo 1 tablet Common Hydrochloro Hydrochloro 3-12 [place] [facility] thiazide thiazide 00:00: - [facility] Atenolol Atenolol Yes Luis Alfredo 1 tablet C ommon [place] [facility] HydrALAZINE HydrALAZINE Yes Luis Alfredo 1 tablet Common HCl HCl [place] with food [facility] Magnesium Magnesium Yes Luis Alfredo 1 tablet Common [place] with a Spirit meal [facility] B Complex B Complex Yes Luis Alfredo not Com mon [place] defined [facility] Potassium Potassium Yes Luis Alfredo not Com mon [place] defined [facility] Vitamin D3 Vitamin D3 Yes [facility] Procedures This patient has no known procedures. Encounters Start End Encounter Admission Attending Care Care Encounter Source Date/Time Date/Time Type Type Clinicians Facility Department ID 2021-07-16 Outpatient [facility] [id number] Common 13:32:59 Luis Alfredo [id number] [facility] 2021-07-16 Outpatient [place], STLMLC STLMLC [id number] Common 13:02:52 Luis Alfredo [id number] [facility] 2021-07-16 Outpatient [place], STLMLC STLMLC [id number] Common 12:53:52 Luis Alfredo [id number] [facility] 2021-07-16 Outpatient [place], STLMLC STLMLC [id number] Common 12:53:26 Luis Alfredo [id number] [facility] 2021-07-16 Outpatient [place], STLMLC STLMLC [id number] Common 12:53:05 Luis Alfredo [id number] [facility] 2021-07-16 Outpatient [place], STLMLC STLMLC [id number] Common 11:54:03 Luis Alfredo [id number] [facility] 2021-07-16 Outpatient [place], STLMLC STLMLC [id number] Common 11:53:49 Luis Alfredo [id number] [facility] 2021-07-16 Outpatient [place], STLMLC STLMLC [id number] Common 11:21:56 Luis Alfredo [id number] [facility] 2021-07-16 Outpatient [place], STLMLC STLMLC [id number] Common 11:17:06 Luis Alfredo [id number] [facility] 2021-07-16 Outpatient [place], STLMLC STLMLC [id number] Common 11:16:54 Luis Alfredo [id number] [facility] 2021-07-16 Outpatient [place], STLMLC STLMLC [id number] Common 11:16:13 Luis Alfredo [id number] [facility] 2021-07-16 Outpatient [place], STLMLC STLMLC [id number] Common 11:16:04 Luis Alfredo [id number] [facility] 2021-07-16 Outpatient [place], STLMLC STLMLC [id number] Common 11:15:25 Luis Alfredo [id number] [facility] 2021-07-16 Outpatient [place], STLMLC STLMLC [id number] Common 11:13:34 Luis Alfredo [id number] [facility] 2021-11-07 2021-11-07 ambulatory STLMLC STLMLC [id number] Common 00:00:00 00:00:00 [facility] 2020-10-31 2020-10-31 Outpatient STLMLC STLMLC [id number] Common 00:00:00 00:00:00 [facility] 2020-10-11 2020-10-11 Outpatient STLMLC STLMLC [id number] Common 00:00:00 00:00:00 [facility] 2020-10-07 2020-10-07 Outpatient STLMLC STLMLC [id number] Common 00:00:00 00:00:00 [facility] 2020-06-05 2020-06-05 Outpatient STLMLC STLMLC [id number] Common 00:00:00 00:00:00 [facility] 2020-04-01 2020-04-01 Outpatient STLMLC STLMLC [id number] Common 00:00:00 00:00:00 [facility] 2020-01-01 2020-01-01 [facility] [id number] Common 09:00:00 09:00:[address] [place] [address] [facility] 2019-11-20 2019-11-20 [facility] [id number] Common 15:34:00 15:34:[address] [facility] 2019-11-14 2019-11-14 [facility] [id number] Common 11:00:00 11:00:[address] [facility] 2019-11-06 2019-11-06 [facility] [id number] Common 08:45:00 08:45:[address] [facility] 2019 2019 [facility] [id number] Common 11:45:00 11:45:[address] [facility] 2019-09-27 2019-09-27 [facility] [id number] Common 15:45:00 15:45:[address] [place] [facility] 2019-08-31 2019-08-31 Outpatient Talon Powers [id number] Common 13:30:00 13:30:00 t [place] [facility] Results This patient has no known results.
[2021-11-14 04:04] LABS: Absolute Lymphocytes (CBC) 1.2 K/uL (0.7-4.9); Hematocrit 41.2 % (36.0-45.0); MPV 9.8 fL (7.6-11.3); RBC Red Blood Cell Count 4.77 M/uL (3.86-4.86)
[2021-11-14 04:09] LABS: Protime INR 1.18
[2021-11-14] MEDS ORDERED: LABETALOL 20 MG/4ML SYRINGE IV ONE (04:19)
[2021-11-14 04:21] LABS: Albumin 3.6 g/dL (3.4-5.0); Bilirubin Direct 0.1 mg/dL (0-0.2); Bilirubin Total 0.3 mg/dL (0.2-1.0); Magnesium 2.3 mg/dL (1.8-2.4); Potassium 3.2 mmol/L (3.5-5.1); Protein, Total 7.8 g/dL (6.4-8.2); Troponin High Sensitivity 23.4 pg/mL (<58.9)
--- NOTE | 2021-11-14 04:49 | ER ---
Nurse's Notes [facility] Name: Kitty Tejeda Age: 51 yrs Sex: Female : 1970 Arrival Date: 11/14/2021 Time: 01:23 Bed 13 Private MD: Diagnosis: Weakness;Cerebral infarction, unspecified;Hypertensive Urgency, Medication Noncompliance Presentation: 11/14 01:39 Chief complaint: Patient states: she is here because her blood pressure is high because bb "it always is" and "my legs don't want to work and I am having trouble driving". Coronavirus screen: At this time, the client does not indicate any symptoms associated with coronavirus-19. Ebola Screen: No symptoms or risks identified at this time. Initial Sepsis Screen: Does the patient meet any 2 criteria? No. Patient's initial sepsis screen is negative. Does the patient have a suspected source of infection? No. Patient's initial sepsis screen is negative. Risk Assessment: Do you want to hurt yourself or someone else? Patient reports no desire to harm self or others. Onset of symptoms is unknown. 01:39 Method Of Arrival: Wheelchair bb 01:39 Acuity: LAUREN 2 bb Triage Assessment: 01:42 General: Appears in no apparent distress. Behavior is calm, cooperative. Pain: Denies bb pain. Neuro: Level of Consciousness is awake, alert, obeys commands, Oriented to person, place, situation. Cardiovascular: Capillary refill < 3 seconds Patient's skin is warm and dry. Respiratory: Respiratory effort is even, unlabored, Respiratory pattern is regular. GI: No signs and/or symptoms were reported involving the gastrointestinal system. Derm: Skin is pink, warm \\T\\ dry. Musculoskeletal: Circulation, motion, and sensation intact. HEELER: 01:42 LMP N/A - Post-menopause bb Historical: - Allergies: 01:42 No Known Allergies; bb - Home Meds: 01:42 atenolol 100 mg Oral tab 1 tab once daily [Active]; lisinopril-hydrochlorothiazide bb 20-12.5 mg Oral tab 1 tab twice a day [Active]; - PMHx: 01:42 Hypertension; Migraines; bb - Immunization history:: Moderna x 3. - Social history:: Smoking status: Patient denies any tobacco usage or history of. Screenin:40 Abuse screen: Denies threats or abuse. Denies injuries from another. Nutritional phoebe screening: No deficits noted. Tuberculosis screening: No symptoms or risk factors identified. Fall Risk None identified. Assessment: 02:37 Reassessment: The pt has been taken to CT, via stretcher. The pt reports that she was phoebe to "go to get my prescriptions from a doctor, but I didn't". The pt has no neuro deficits. She appears to be in NAD. 06:05 Reassessment: The pt was given a swallow eval, per MD's order and she was able to phoebe swallow without any coughing or difficulty. She took her oral medications well, too. The pt ambulated to the bathroom with a slow, steady waddle. I accompanied her, as I was wanting a urine specimen. She was given the cup, but "missed". The pt walked back to her room and was assisted in the bed and placed back on the monitor. She is in NAD. Vital Signs: 01:39 BP 241 / 119; Pulse 101; Resp 16 S; Temp 99.1(TE); Pulse Ox 94% on R/A; Weight 144.24 bb kg (R); Height 5 ft. 4 in. (162.56 cm) (R); Pain 0/10; 02:40 BP 258 / 139; Pulse 101; Resp 18; Temp 98.2; Pulse Ox 99% on R/A; Pain 0/10; phoebe 03:40 BP 198 / 144; Pulse 89; phoebe 04:20 BP 186 / 123; Pulse 79; Resp 16; Temp 98.2; Pulse Ox 99% on R/A; phoebe 04:34 BP 198 / 113; Pulse 79; Resp 18; Pulse Ox 97% on R/A; phoebe 05:08 BP 192 / 111; Pulse 86; phoebe 06:00 BP 192 / 103; Pulse 89; Resp 18; Temp 98.2; Pulse Ox 100% on R/A; phoebe 21:51 BP 171 / 107; Pulse 116; Resp 19; Pulse Ox 94% ; ke1 01:39 Body Mass Index 54.58 (144.24 kg, 162.56 cm) rekha ED Course: 01:23 Patient arrived in ED. norm 01:42 Triage completed. rekha 01:42 Arm band placed on Patient placed in waiting room, Patient notified of wait time. bb 02:21 Faith Newton, RN is Primary Nurse. phoebe 02:22 Brandon Pride MD is Attending Physician. [facility] 02:52 CT Head Brain wo Cont In Process Unspecified. EDMS 03:18 XRAY Chest (1 view) In Process Unspecified. EDMS 03:51 Inserted saline lock: 22 gauge in right forearm, using aseptic technique. Blood ds4 collected. 04:15 Troponin HS Sent. phoebe 04:15 NT PRO-BNP Sent. phoebe 04:15 Magnesium Sent. phoebe 04:15 LFT's Sent. phoebe 04:15 Basic Metabolic Panel Sent. phoebe 04:46 Roshan Meza MD is Hospitalizing Provider. [facility] 05:59 Placed in gown. Bed in low position. Call light in reach. Side rails up X2. Cardiac phoebe monitor on. Pulse ox on. NIBP on. 05:59 No provider procedures requiring assistance completed. phoebe 21:52 Patient admitted, IV remains in place. ke1 Administered Medications: 04:25 Drug: Labetalol 10 mg Route: IV; Rate: per protocol; Infused Over: 2 mins; Site: right phoebe forearm; 05:28 Drug: Aspirin Chewable Tablet 162 mg Route: PO; phoebe 06:09 Follow up: Response: No adverse reaction phoebe 05:28 Drug: Lisinopril 20 mg Route: PO; phoebe 06:09 Follow up: Response: No adverse reaction phoebe 05:28 Drug: foLIC Acid 1 mg Route: PO; phoebe 06:08 Follow up: Response: No adverse reaction phoebe 05:28 Drug: Atorvastatin 40 mg Route: PO; phoebe 06:08 Follow up: Response: No adverse reaction phoebe Medication: 06:00 VIS not applicable for this client. phoebe Outcome: 04:48 Decision to Hospitalize by Provider. [facility] 05:59 Condition: stable phoebe 21:52 Admitted to Med/surg accompanied by tech. ke1 21:52 Condition: stable 21:52 Instructed on the need for admit. 21:53 Patient left the ED. ke1 Signatures: Dispatcher [employer] EDFaith Lagos RN RN bb Swanson, Donovan ds4 Brandon Pride MD MD 7 O'Ahuja, Faith, RN RN phoebe Ebrottie, Kouassi, RN RN ke1 Gómez, Lucero kz
--- NOTE | 2021-11-14 04:50 | EDPHYS ---
Physician Documentation [facility] Name: Kitty Tejeda Age: 51 yrs Sex: Female : 1970 Arrival Date: 11/14/2021 Time: 01:23 Bed 13 Private MD: ED Physician Brandon Pride HPI: 11/14 02:40 This 51 yrs old Female presents to ER via Wheelchair with complaints of High Blood mh7 Pressure, Confusion. 02:40 The patient's problem is reported as weakness, in the left lower extremity. Onset: The mh7 symptoms/episode began/occurred 1 week(s) ago. Duration: The episode is continuous. Context: the episode(s) was witnessed, by no one, symptoms became apparent at an unknown time, occurred at home, occurred while the patient was lying down, Possible contributing factors include: Patient is a know diabetic. hypertension. The symptoms are alleviated by nothing. The symptoms are aggravated by standing. Associated signs and symptoms: Pertinent positives: confusion, Pertinent negatives: abdominal pain, agitation, blurred vision, chest pain, combativeness, diaphoresis, diarrhea, dizziness, headache, lightheadedness, nausea, numbness, palpitations, seizure, shortness of breath, tingling, vertigo, vomiting. Severity of symptoms: At their worst the symptoms were moderate 5 day(s) ago, in the emergency department the symptoms are unchanged. Patient's baseline: Neuro: alert and fully oriented, Motor: no deficits, Ambulation: walks without assistance, Speech: normal. BEAD TRIMMER: 01:42 LMP N/A - Post-menopause bb Historical: - Allergies: 01:42 No Known Allergies; bb - Home Meds: 01:42 atenolol 100 mg Oral tab 1 tab once daily [Active]; lisinopril-hydrochlorothiazide bb 20-12.5 mg Oral tab 1 tab twice a day [Active]; - PMHx: 01:42 Hypertension; Migraines; bb - Immunization history:: Moderna x 3. - Social history:: Smoking status: Patient denies any tobacco usage or history of. ROS: 02:40 Constitutional: Negative for fever, chills, and weight loss, Eyes: Negative for injury, mh7 pain, redness, and discharge, ENT: Negative for injury, pain, and discharge, Neck: Negative for injury, pain, and swelling, Cardiovascular: Negative for chest pain, palpitations, and edema, Respiratory: Negative for shortness of breath, cough, wheezing, and pleuritic chest pain, Abdomen/GI: Negative for abdominal pain, nausea, vomiting, diarrhea, and constipation, Back: Negative for injury and pain, : Negative for injury, bleeding, discharge, and swelling, Skin: Negative for injury, rash, and discoloration, Psych: Negative for depression, anxiety, suicide ideation, homicidal ideation, and hallucinations, Allergy/Immunology: Negative for hives, rash, and allergies, Endocrine: Negative for neck swelling, polydipsia, polyuria, polyphagia, and marked weight changes, Hematologic/Lymphatic: Negative for swollen nodes, abnormal bleeding, and unusual bruising. Exam: 02:40 Constitutional: This is a well developed, well nourished patient who is awake, alert, mh7 and in no acute distress. Head/Face: Normocephalic, atraumatic. Eyes: Pupils equal round and reactive to light, extra-ocular motions intact. Lids and lashes normal. Conjunctiva and sclera are non-icteric and not injected. Cornea within normal limits. Periorbital areas with no swelling, redness, or edema. Neck: Trachea midline, no thyromegaly or masses palpated, and no cervical lymphadenopathy. Supple, full range of motion without nuchal rigidity, or vertebral point tenderness. No Meningismus. Chest/axilla: Normal chest wall appearance and motion. Nontender with no deformity. No lesions are appreciated. Cardiovascular: Regular rate and rhythm with a normal S1 and S2. No gallops, murmurs, or rubs. Normal PMI, no JVD. No pulse deficits. Respiratory: Lungs have equal breath sounds bilaterally, clear to auscultation and percussion. No rales, rhonchi or wheezes noted. No increased work of breathing, no retractions or nasal flaring. Abdomen/GI: Soft, non-tender, with normal bowel sounds. No distension or tympany. No guarding or rebound. No evidence of tenderness throughout. Back: No spinal tenderness. No costovertebral tenderness. Full range of motion. Skin: Warm, dry with normal turgor. Normal color with no rashes, no lesions, and no evidence of cellulitis. MS/ Extremity: Pulses equal, no cyanosis. Neurovascular intact. Full, normal range of motion. 02:40 Psych: Awake, alert, with orientation to person, place and time. Behavior, mood, and affect are within normal limits. 02:40 Neuro: Orientation: is normal, Mentation: is normal, Memory: is normal, Cranial nerves: grossly normal, Cerebellar function: is grossly normal, Motor: moves all fours, Sensation: no obvious gross deficits, Gait: not tested. seizure activity, is not displayed by the patient, Abnormal movements: there are no abnormal movements. Vital Signs: 01:39 BP 241 / 119; Pulse 101; Resp 16 S; Temp 99.1(TE); Pulse Ox 94% on R/A; Weight 144.24 bb kg (R); Height 5 ft. 4 in. (162.56 cm) (R); Pain 0/10; 02:40 BP 258 / 139; Pulse 101; Resp 18; Temp 98.2; Pulse Ox 99% on R/A; Pain 0/10; phoebe 03:40 BP 198 / 144; Pulse 89; phoebe 04:20 BP 186 / 123; Pulse 79; Resp 16; Temp 98.2; Pulse Ox 99% on R/A; phoebe 04:34 BP 198 / 113; Pulse 79; Resp 18; Pulse Ox 97% on R/A; phoebe 05:08 BP 192 / 111; Pulse 86; phoebe 06:00 BP 192 / 103; Pulse 89; Resp 18; Temp 98.2; Pulse Ox 100% on R/A; hpoebe 21:51 BP 171 / 107; Pulse 116; Resp 19; Pulse Ox 94% ; ke1 01:39 Body Mass Index 54.58 (144.24 kg, 162.56 cm) bb MDM: 04:43 Differential diagnosis: CVA, TIA, paralysis, metabolic disorder, drug effects, mh7 Hypertensive Urgency. Data reviewed: vital signs, nurses notes, lab test result(s), cardiac enzymes, CBC, electrolytes, urinalysis, EKG, radiologic studies, CT scan, plain films. Data interpreted: Pulse oximetry: on room air is 97 %. Interpretation: normal. Counseling: I had a detailed discussion with the patient and/or guardian regarding: the historical points, exam findings, and any diagnostic results supporting the discharge/admit diagnosis, the presence of at least one elevated blood pressure reading (>120/80) during this emergency department visit, lab results, radiology results, the need for further work-up and treatment in the hospital. Response to treatment: the patient's symptoms have mildly improved after treatment. 04:48 Patient medically screened. [facility] 11/14 02:24 Order name: Basic Metabolic Panel; Complete Time: 04:24 [facility] 11/14 02:24 Order name: CBC with Diff; Complete Time: 04:10 [facility] 11/14 02:24 Order name: LFT's; Complete Time: 04:35 [facility] 11/14 02:24 Order name: Magnesium; Complete Time: 04:35 [facility] 11/14 02:24 Order name: NT PRO-BNP; Complete Time: 04:35 [facility] 11/14 02:24 Order name: PT-INR; Complete Time: 04:10 [facility] 11/14 02:24 Order name: Troponin HS; Complete Time: 04:35 [facility] 11/14 02:24 Order name: XRAY Chest (1 view) [facility] 11/14 02:24 Order name: CT Head Brain wo Cont [facility] 11/14 02:24 Order name: UDS [facility] 11/14 10:26 Order name: SARS-COV-2 RT PCR [facility] 11/14 10:49 Order name: US [facility] 11/14 12:11 Order name: MRI [facility] 11/14 12:14 Order name: MRI [facility] 11/14 02:24 Order name: EKG; Complete Time: 02:25 [facility] 11/14 02:24 Order name: Cardiac monitoring; Complete Time: 03:51 [facility] 11/14 02:24 Order name: EKG - Nurse/Tech; Complete Time: 03:51 [facility] 11/14 02:24 Order name: IV Saline Lock; Complete Time: 03:51 11/14 02:24 Order name: Labs collected and sent; Complete Time: 03:51 11/14 02:24 Order name: O2 Per Protocol; Complete Time: 03:51 11/14 02:24 Order name: O2 Sat Monitoring; Complete Time: 03:51 11/14 05:05 Order name: Swallow Screen; Complete Time: 05:28 la1 11/14 12:14 Order name: MRI EDMS Administered Medications: 04:25 Drug: Labetalol 10 mg Route: IV; Rate: per protocol; Infused Over: 2 mins; Site: right pheobe forearm; 05:28 Drug: Aspirin Chewable Tablet 162 mg Route: PO; phoebe 06:09 Follow up: Response: No adverse reaction phoebe 05:28 Drug: Lisinopril 20 mg Route: PO; phoebe 06:09 Follow up: Response: No adverse reaction phoebe 05:28 Drug: foLIC Acid 1 mg Route: PO; phoebe 06:08 Follow up: Response: No adverse reaction phoebe 05:28 Drug: Atorvastatin 40 mg Route: PO; phoebe 06:08 Follow up: Response: No adverse reaction phoebe Disposition Summary: 11/14/21 04:48 Hospitalization Ordered Hospitalization Status: Inpatient Admission mh7 Provider: Roshan Meza Mauricio Condition: Stable [facility] Problem: new mh7 Symptoms: have improved mh7 Bed/Room Type: Standard [facility] Location: Telemetry/MedSurg (Inpatient)(11/14/21 19:50) cg Room Assignment: [facility](11/14/21 19:50) Diagnosis - Weakness 7 - Cerebral infarction, unspecified 7 - Hypertensive Urgency, Medication Noncompliance [facility] Forms: - Medication Reconciliation Form 7 - SBAR form [facility] Signatures: Dispatcher [employer] EDFaith Lagos RN RN bb Damir Butler, DIRECTOR DIGITAL SALES-C DIRECTOR DIGITAL SALES-Merlyn Escamilla RN RN cg Holmes, Maurice, MD MD 7 Faith Newton RN RN bo Corrections: (The following items were deleted from the chart) 04:23 02:40 The patient has elevated blood pressure and discovered this 7 7 05:52 04:48 Telemetry/MedSurg (Inpatient) 7 cg 05:52 04:48 mh7 cg 19:50 05:52 [facility] ER HOLD cg cg 19:50 05:52 ERHOLD- cg cg
[2021-11-14] MEDS ORDERED: ASPIRIN EC 81 MG TAB PO ONE (05:17)
[2021-11-14] MEDS ORDERED: FOLIC ACID 1 MG TABLET ONE ×2 (05:17→12:05)
[2021-11-14] MEDS ORDERED: lisinopriL 20 MG TAB ONE ×2 (05:17→12:04)
[2021-11-14] MEDS ORDERED: ATORVASTATIN 20 MG TAB ONE ×2 (05:17→21:27)
--- NOTE | 2021-11-14 05:29 | P.HP ---
Certification for Inpatient Patient admitted to: Inpatient With expected LOS: >2 Midnights Patient will require the following post-hospital care: None Practitioner: I am a practitioner with admitting privileges, knowledge of patient current condition, hospital course, and medical plan of care. Services: Services provided to patient in accordance with Admission requirements found in Title 42 Section 412.3 of the Code of Federal Regulations <Damir Butler - Last Filed: 11/14/21 05:24> Patient History Date of Service: 11/14/21 Reason for admission: Hypertensive emergency, CVA History of Present Illness: 51-year-old female with history of uncontrolled hypertension presents emergency department for high blood pressure, confusion. She has not been taking her blood pressure medication for the past 6 months or so, she also reports she has been having some difficulty with her gait lately she cannot define the amount of time her symptoms have been going on reports people who live with her have said is been going on for months. Patient was severely hypertensive in the emergency department with initial blood pressure of 241/119 as high as 258/139 her labs were significant for mild hypokalemia and mild elevation in BNP she had a CT scan of her head which was significant for a small focal area of hypodensity in the right departmental matter frontal lobe and minimally along the bilateral basal ganglia right hypothalamus perhaps suggesting the possibility of focal areas of lacunar infarct. On exam patient appears somewhat confused does report some weakness in left lower extremity on exam does have slight drift of the left lower extremity. ED prior wishes to admit for suspected CVA, hypertensive emergency - Past Medical/Surgical History -: Hypertension -: None Psychosocial/ Personal History: Patient lives at home with other family members - Family History Mother -: Heart disease - Social History Smoking Status: Never smoker Alcohol use: No CD- Drugs: No Caffeine use: Yes Place of Residence: Home <Damir Butler - Last Filed: 11/14/21 05:24> Date of Service: 11/14/21 <Roshan Meza - Last Filed: 11/14/21 18:35> Review of Systems 10-point ROS is otherwise unremarkable Neurological: Weakness, Confusion, As per HPI <Damir Butler - Last Filed: 11/14/21 05:24> Physical Examination - Physical Exam General: Alert, In no apparent distress, Oriented x3, Confused, Obese HEENT: Atraumatic, PERRLA, Mucous membr. moist/pink, EOMI, Sclerae nonicteric Neck: Supple, 2+ carotid pulse no bruit, No LAD, Without JVD or thyroid abnormality Respiratory: Clear to auscultation bilaterally, Normal air movement Cardiovascular: Regular rate/rhythm, Normal S1 S2 Capillary refill: <2 Seconds Gastrointestinal: Normal bowel sounds, No tenderness Musculoskeletal: No tenderness Integumentary: No rashes Neurological: Normal speech, Normal tone, Cranial nerves 3-12 intact, Normal affect, Abnormal strength (4-5 strength left lower extremity mild drift noted) - Studies Laboratory Data (last 24 hrs) 11/14/21 03:35: PT 13.0 H, INR 1.18 11/14/21 03:35: WBC 7.7, Hgb 13.4, Hct 41.2, Plt Count 222 11/14/21 03:35: Sodium 140, Potassium 3.2 L, BUN 14, Creatinine 0.99, Glucose 109 H, Magnesium 2.3, Total Bilirubin 0.3, AST 16, ALT 20, Alkaline Phosphatase 102 <aDmir Butler - Last Filed: 11/14/21 05:24> - Studies Laboratory Data (last 24 hrs) 11/14/21 03:35: PT 13.0 H, INR 1.18 11/14/21 03:35: WBC 7.7, Hgb 13.4, Hct 41.2, Plt Count 222 11/14/21 03:35: Sodium 140, Potassium 3.2 L, BUN 14, Creatinine 0.99, Glucose 109 H, Magnesium 2.3, Total Bilirubin 0.3, AST 16, ALT 20, Alkaline Phosphatase 102 <Roshan Meza - Last Filed: 11/14/21 18:35> Assessment and Plan - Plan Assessment: Malignant hypertension/hypertensive emergency AMS/encephalopathy Suspected lacunar infarct Plan: Malignant hypertension/hypertensive emergency: Patient with altered mental status, possible CVA/lacunar infarct on CT scan blood pressure has improved modestly in the emergency department will reinstate patient's home medications including lisinopril 20 mg p.o. daily, hydrochlorothiazide 12.5 mg p.o. daily and atenolol 100 mg daily patient has been noncompliant with medications for last 6 months or so. We will monitor on telemetry obtain echocardiogram get a cardiology consult for additional input. AMS/encephalopathy: Suspect this is related to severe hypertension possibly PRES will aim to control patient's blood pressure and obtain further work-up. Suspected lacunar infarct: MRI stroke protocol, echocardiogram, carotid Doppler ordered continue aspirin, statin, folic acid therapy. Neurology to be consulted patient does report some mild left lower extremity weakness as well as difficulty with her gait over the undefined period of time will have patient evaluated by speech and physical therapy as well. Appreciate further input from neurology. DVT PPX: Lovenox Code status: Full Discharge Plan: Home Plan to discharge in: 72 Hours - Advance Directives Does patient have a Living Will: No Does patient have a Durable POA for Healthcare: No - Code Status/Comfort Care Code Status Assessed: Yes (Full code) Critical Care: No Time Spent Managing Pts Care (In Minutes): 70 <Damir Butler - Last Filed: 11/14/21 05:24> - Plan Patient seen and examined this morning. Continues with LLE weakness, slow to answer questions MRI with acute CVA, mostly R sided, MRA with acute narrowing of R cerebral arteries Discussed with Dr. Copeland - given recent onset of symptoms < 24hrs, and narrowing of arteries that supply area of stroke recommends transfer to tertiary care center for 4 vessel angiogram transfer initiated to [facility] Has note required any IV drips <Roshan Meza - Last Filed: 11/14/21 18:35>
[2021-11-14] MEDS ORDERED: ONDANSETRON 4 MG/2 ML VIAL IV PRN (09:13)
[2021-11-14] MEDS: FOLIC ACID 1 MG TABLET PO SCH (09:13)
[2021-11-14] MEDS: lisinopriL 20 MG TAB PO SCH (09:13)
[2021-11-14] MEDS: ENOXAPARIN 40 MG/0.4 ML SQ SCH (10:00)
--- NOTE | 2021-11-14 10:48 | RAD REPORT ---
EXAM DESCRIPTION: USCarotid Artery Bilateral11/14/2021 10:32 am CLINICAL HISTORY: CVA COMPARISON: None FINDINGS: The velocity of the right internal carotid artery equals 74 cm/sec. The right ICA/CCA rati o 1 The velocity of the left internal carotid artery equals 99 cm/sec. The left ICA/CCA ratio 1 No plaque visualized within the carotid arteries. The vertebral arteries demonstrate antegrade flow IMPRESSION: Unremarkable exam NASCET criteria used. Mild 0-49% stenosis Moderate 50-69% stenosis Severe 70-99% stenosis
[2021-11-14 10:55] VITALS: BMI 51.5
--- NOTE | 2021-11-14 11:59 | RAD REPORT ---
EXAM DESCRIPTION: CT - Head Brain Wo Cont - 11/14/2021 6:52 am CLINICAL HISTORY: 51 years, Female, Altered mental status, nontraumatic COMPARISON: 05/20/2018 FINDINGS: Multiple transaxial tomograms of the brain were obtained from the base of the skull to the vertex without contrast. 2-D multiplanar reformats and the coronal and sagittal plane were performed and reviewed. This exam was performed according to our departmental dose-optimization protocol, which includes auto mated exposure control, adjustment of the mA and/or kV according to patient size and/or use of iterat tomás reconstruction technique. Brain parenchyma demonstrate to be within normal limits. There is a small focal area of hypodensity r ight departmental matter frontal lobe and minimally along bilateral basal ganglia, right hypothalamus perhaps suggesting the possibility of focal areas of lacunar infarct. There is no midline shift and/ or mass effect. There is no evidence for acute hemorrhage. Lateral ventricles and cisterns displace normal appearance. No intra or extra axial fluid collections were seen. The calvarium is intact wi th no evidence for fracture. The visualized portions of the paranasal sinuses and orbits demonstrate to be clear. IMPRESSION: Small focal area of hypodensity right departmental matter frontal lobe and minimally nilesh ng bilateral basal ganglia, right hypothalamus perhaps suggesting the possibility of focal areas of l acunar infarct. If concern further evaluation with MRI could be of assistance. No evidence for acute hemorrhage. Electronically signed by: Jaden Silver MD 11/14/2021 3:41 AM CDT Due to temporary technical issues with the PACS/Fluency reporting system, reports are being signed by the in house radiologist without review as a courtesy to ensure prompt reporting. The interpreting r adiologist is fully responsible for the content of the report.
--- NOTE | 2021-11-14 12:00 | RAD REPORT ---
EXAM DESCRIPTION: RAD - Chest Single View - 11/14/2021 3:16 am CLINICAL HISTORY: 51 years, Female, Hypertensive COMPARISON: None. FINDINGS: Single view of the chest was obtained portable. No prior films are available for compariso n. The study is comprised due to patient large body habitus and underpenetration x-ray beam lower ozzie g zone. The cardiomediastinal silhouette demonstrate to be unremarkable. The heart is not enlarged. T he thoracic aorta is unremarkable. Costophrenic angles are sharp. No areas of consolidation or mass es are seen. The rest of the soft tissue and bony structures demonstrate to be unremarkable. IMPRESSION: No acute cardiopulmonary disease is seen. Electronically signed by: Jaden Silver MD 11/14/2021 3:42 AM CDT Due to temporary technical issues with the PACS/Fluency reporting system, reports are being signed by the in house radiologist without review as a courtesy to ensure prompt reporting. The interpreting r adiologist is fully responsible for the content of the report.
[2021-11-14] MEDS ORDERED: ENOXAPARIN 40 MG/0.4 ML SQ ONE (12:05)
[2021-11-14] MEDS ORDERED: hydroCHLOROthiazide 25 MG TAB ONE (12:05)
--- NOTE | 2021-11-14 12:10 | RAD REPORT ---
EXAM DESCRIPTION: MRI - MRA Neck W/Wo Cont - 11/14/2021 11:43 am CLINICAL HISTORY: CVA COMPARISON: None. TECHNIQUE: Magnetic resonance angiogram of the neck was performed. 20 cc MultiHance was administered intravenously. 3D MIPS reconstruction performed FINDINGS: Bovine aorta. Mild plaque is present within the common carotid, internal and external carotid arteries bilaterally. The common carotid, internal carotid and external carotid arteries do not demonstrate a significant s tenosis. An aneurysm is not seen. The vertebral arteries are codominant without visualization of a significant abnormality IMPRESSION: Mild plaque within the carotid arteries NASCET criteria used. Mild 0-49% stenosis Moderate 50-69% stenosis Severe 70-99% stenosis
--- NOTE | 2021-11-14 12:13 | RAD REPORT ---
EXAM DESCRIPTION: MRI - MRA Head Wo Cont - 11/14/2021 11:42 am CLINICAL HISTORY: CVA COMPARISON: None. TECHNIQUE: Magnetic resonance angiogram was performed. 3D MIPS reconstruction performed FINDINGS: Examination is suboptimal secondary to motion artifact. Evaluation of the distal right internal carotid and portions of the anterior and middle cerebral gilbert dorinda limited. Areas of narrowing involves the right anterior and right middle cerebral artery. Mild chronic areas of narrowing posterior cerebral arteries. Basilar artery unremarkable No aneurysm seen IMPRESSION: Limited examination Areas of narrowing involving right anterior and right middle cerebral artery probably acute
--- NOTE | 2021-11-14 12:14 | RAD REPORT ---
EXAM DESCRIPTION: MRI - Brain W/Wo Cont - 11/14/2021 11:44 am CLINICAL HISTORY: CVA COMPARISON: head CT November 14, 2021 TECHNIQUE: Axial, sagittal, and coronal magnetic images of the brain were obtained. 20 cc MultiHance administered intravenously FINDINGS: Diffusion-weighted/ ADC mapping sequences demonstrate punctate area of abnormal signal within the lef t aspect of the donna. Small area of abnormal signal is present within the deep white matter left fron devin lobe. 2 centimeter area of abnormal signal medial left frontal lobe. 1.5 centimeter additional ab normal area right frontal lobe. Several additional smaller areas of abnormal signal right frontal lob e. All of these are compatible with acute infarction. Abnormal signal right and left thalami and basal ganglia compatible with old lacunar infarcts. Mild to moderate signal periventricular, deep and subcortical white matter likely ischemic changes se condary to small vessel disease The ventricles are normal caliber No abnormal enhancement within the brain is seen. An extra-axial fluid collection is not noted. Fluid within the sinuses/mastoids is not seen IMPRESSION: Acute infarcts most prevalent right frontal lobe.
[2021-11-14] MEDS: HYDRALAZINE HCL 20 MG/ML VIAL IV PRN ×2 (16:59→21:31)
[2021-11-14] MEDS ORDERED: HYDRALAZINE HCL 20 MG/ML VIAL ONE ×2 (17:02→21:26)
--- NOTE | 2021-11-14 17:58 | EKG ---
Test Date: 2021-11-14 Test Time: 03:43:41 Device Test Engineer: BERNA MEASUREMENT RESULTS: Intervals: Rate: 88 OH: 164 QRSD: 140 QT: 418 QTc: 505 [place]: P: 47 OH: 164 QRS: 15 T: 11 INTERPRETIVE STATEMENTS: Normal sinus rhythm Right bundle branch block Moderate voltage criteria for LVH, may be normal variant Abnormal ECG Compared to ECG 10/27/2019 18:19:28 Right bundle-branch block now present Left ventricular hypertrophy now present Sinus bradycardia no longer present Electronically Signed On 11-14-21 17:56:46 CDT by Sg Holland
[2021-11-14 18:43] LABS: Barbiturates NEGATIVE (NEGATIVE); Benzodiazepines NEGATIVE (NEGATIVE); Cocaine NEGATIVE (NEGATIVE); METHAMPHETAM NEGATIVE (NEGATIVE); Methadone NEGATIVE (NEGATIVE); Opiates NEGATIVE (NEGATIVE); Phencyclidine NEGATIVE (NEGATIVE); THC Cannibis NEGATIVE (NEGATIVE)
[2021-11-14] MEDS ORDERED: ATORVASTATIN 40 MG TAB PO SCH (21:00)
[2021-11-14] MEDS ORDERED: atenoloL 25 MG TAB PO ONE (21:26)
[2021-11-14] MEDS ORDERED: atenoloL 50 MG TAB ONE (21:26)
[2021-11-14] MEDS ORDERED: atenoloL 50 MG TAB PO ONE (22:00)
[2021-11-14 22:31] VITALS: O2SAT 94
--- NOTE | 2021-11-14 22:54 | CON ---
Date of Consultation: 11/14/2021 Reason For Consultation: Hypertensive emergency. History Of Present Illness: A 51-year-old female, history of hypertension, uncontrolled. Presented to the emergency room with high blood pressure and confusion. Has not been taking her blood pressure medication for the past 6 months. She is obese, noncompliant. Does not exercise. Blood pressure w as 240/119 to 158/139. CT of the brain showed an area suggestive of acute lacunar infarct. The rosalinda ent at bedside is pleasant, but confused. Does not have any acute complaints. Past Medical History: 1.Hypertension. 2.Obesity. Medications: Refer reconciliation sheet for detailed list. Allergies: NO KNOWN DRUG ALLERGIES. Family History: No premature coronary artery disease or cancer. Social History: Does not smoke or drink. Does not use any drugs. Review of Systems: All systems reviewed and they were negative except as mentioned in the HPI. Physical Examination: Vital Signs: Her temperature is 98.0, heart rate is 100, breathing at 18, blood pressure 197/114, sa turating at 100%. General: A pleasant, middle-aged female, morbidly obese, no apparent distress. Head and Neck: Pupils are equal, reactive to light. Intact eye movements. No cervical lymphadenopa thy. Neck: Supple. Thyroid is not enlarged. Lungs: Clear to auscultation bilaterally. No rhonchi, rales, or crackles. No accessory muscle use. Heart: Regular rate and rhythm. No extra sounds. Abdomen: Soft, nontender. Bowel sounds positive. No organomegaly. No masses or hernia. No rigidi ty or rebound. Extremities: No edema, clubbing, or cyanosis. Intact pulses. SKIN: No rash. Neurologic: Alert, awake, oriented x3. No acute focal deficits appreciated. Lymph Nodes: No cervical lymphadenopathy. Investigations: Hemoglobin 13.4. Creatinine 0.99. Sodium 3.2. NT-proBNP is 204, and troponin is n egative. CT scan of the brain, lacunar coronal infarct. Neck MRA, mild plaque within the carotid ar teries and carotid artery ultrasound also does not show any significant stenosis. Assessment And Recommendation: 1.Hypertensive emergency. Pressure is coming down. Recommend to increase the hydrochlorothiazide 2 5 mg and can add an amlodipine 5 mg daily and monitor for a slow improvement of her blood pressure. Avoid rapid decline in her blood pressure. Adjust medications further and discussed with the patient the need to be compliant with medications. 2.Cerebrovascular accident, lacunar infarct due to hypertension. No focal abnormalities of her crowder tids noted. Keep the patient on telemetry to assess for atrial fibrillation. 3.Paroxysmal atrial fibrillation. SR/MODL Voice ID: [id number] Report ID: [id number]
--- NOTE | 2021-11-14 23:01 | CON ---
Reason For Consultation: Consultation called because of stroke. History Of Present Illness: Ms. Tejeda is a 51-year-old right-handed patient with uncon trolled hypertension, who is noncompliant with antihypertensive medications and who comes to [facility] with worsening abnormal gait and left leg weakness. She actually is unable to tell when her symptoms began. Apparently 6 months or so off and on weakness, however, she thinks that it proba zehra got somewhat worse on the evening before coming in and that prompted her to come to [facility]. Her blood pressures were extremely elevated around 141/119 up to 158/139. CT scan of the ad showed small areas of hypodensity in the right frontal white matter in addition to the bilateral b sandi ganglia, right hypothalamus. These appear to be lacunar infarcts. MRI of her brain also done e malcolm did show possible area of abnormal signal in the left donna as well as the left frontal lobe. There is a 2 cm area of abnormal signal in the medial left frontal lobe, 1.5 cm. There is no signal abnormality in the right frontal lobe and several additional smaller areas in the frontal lobe, all o f these compatible with acute infarction. Also right and left thalamic and basal ganglia areas that were compatible with old infarcts. She also had moderate periventricular deep and subcortical white matter findings consistent with small vessel ischemic disease. Despite the multiple strokes, her def icits are largely left lower extremity weakness. Past Medical History: Uncontrolled hypertension. Social History: Denies alcohol, tobacco, or IV drug use. She is not compliant with medications. Family History: Heart disease in mother. Current Medications: Aspirin 81 mg daily. We will start in hospital atenolol 100 mg daily, Lipitor 40 mg at bedtime, folate 1 mg daily. Also Prinivil 20 mg daily, hydrochlorothiazide 12.5 mg daily, a nd hydralazine IV push while in hospital. Review of Systems: She denies any recent fevers, chills, nausea, vomiting, myalgias, arthralgias, rash, headache, or cory ght change. Physical Examination: Vital Signs: Blood pressure 197/114, pulse 84 up to 100, respiratory rate 15 to 18, temperature 98.0 , oxygen saturation 100% on room air. General: Ms. Tejeda is resting comfortably in bed. She is in no acute distress. HEENT: She is normocephalic, atraumatic. Sclerae anicteric. Oropharynx pink and moist. Neck: Supple. Chest: Clear. Heart: Regular. Extremities: No significant edema or cyanosis. Neurological: She is alert and oriented to situation, place, and person. She follows commands appro priately. Cranial nerves show no focal deficits on 2 through 12. Motor examination in the upper ext remities was strong bilaterally, in the lower extremities on the left 4/5 and on the right 5/5. Sens ory exam is decreased to light touch and temperature in the left lower versus right lower extremity. Coordination intact in the upper and lower extremities. She was seen by the physical therapist and she ambulated 10 feet without an assistive device and contact guard assistance. Also ambulated 100 f eet with a front wheel walker with contact guard assistance. Assessment: Ms. Tejeda is a 51-year-old patient with hypertensive emergency and strokes, likely l acunar related. However, she has had multiple strokes in several vascular territories, which are hernandez y similar in age therefore, a cardioembolic source must be ruled out. At this stage, her electrocard iogram shows normal sinus rhythm and right bundle-branch block. EKG from 10/26/2021 also showed righ t bundle-branch block with left ventricular hypertrophy, which was also seen in the most recent EKG. Her neck magnetic resonance angiogram showed mild plaque within the carotid arteries. Her carotid u ltrasound was unremarkable. Ms. Tejeda is a 51-year-old patient noted with uncontrolled hypertension who had multiple strokes, again some related to hypertension and possibly cardioembolic. Plan: 1.At this point, aspirin, Plavix, folic acid, and statin. 2.She should have cardiac monitoring and possible anticoagulation. 3.Follow up with Cardiology after discharge. 4.Follow up with Dr. Copeland's clinic 1 month later. 5.She may benefit from aggressive outpatient physical therapy to help regain function. 6.The importance of compliance with antihypertensive medications was stressed. YI/SPARKLE Voice ID: [id number] Report ID: [id number]
[2021-11-15] MEDS ORDERED: ALPRAZOLAM 0.25 MG TABLET PO PRN (02:30)
[2021-11-15] MEDS ORDERED: AMLODIPINE 5 MG TAB PO ONE (02:32)
[2021-11-15] MEDS ORDERED: atenoloL 50 MG TAB PO SCH (06:00)
[2021-11-15 06:28] LABS: Absolute Lymphocytes (CBC) 0.7 K/uL (0.7-4.9); Hematocrit 42.3 % (36.0-45.0); Lymphocytes % 11.3 % (15.3-44.8); MPV 9.7 fL (7.6-11.3); RBC Red Blood Cell Count 4.88 M/uL (3.86-4.86)
--- NOTE | 2021-11-15 06:50 | P.PN ---
Date of Service: 11/15/21
[2021-11-15] MEDS: HYDRALAZINE HCL 20 MG/ML VIAL IV PRN (07:13)
[2021-11-15 08:01] LABS: Albumin 3.4 g/dL (3.4-5.0); Bilirubin Total 0.4 mg/dL (0.2-1.0); Protein, Total 7.8 g/dL (6.4-8.2); Thyroid Stimulating Hormone 1.13 uIU/mL (0.360-3.740)
[2021-11-15 08:05] LABS: Potassium 2.9 mmol/L (3.5-5.1)
[2021-11-15] MEDS ORDERED: POTASSIUM CL SA 10 MEQ TAB PO ONE (08:47)
[2021-11-15] MEDS ORDERED: CLOPIDOGREL 75 MG TABLET PO SCH (09:00)
[2021-11-15] MEDS ORDERED: hydroCHLOROthiazide 12.5 MG CAP PO SCH ×2 (09:00)
[2021-11-15] MEDS ORDERED: ASPIRIN 81 MG CHEWABLE TABLET PO SCH (09:00)
[2021-11-15] MEDS ORDERED: hydroCHLOROthiazide 25 MG TAB PO SCH (09:00)
[2021-11-15] MEDS ORDERED: PNEUMOCOCCAL VACCINE 0.5 ML IMVAC ONE (09:00)
[2021-11-15] MEDS ORDERED: ASPIRIN EC 81 MG TAB PO SCH (09:00)
[2021-11-15] MEDS: FOLIC ACID 1 MG TABLET PO SCH (09:47)
[2021-11-15] MEDS: lisinopriL 20 MG TAB PO SCH (09:48)
[2021-11-15] MEDS: ENOXAPARIN 40 MG/0.4 ML SQ SCH (09:48)
--- NOTE | 2021-11-15 12:53 | PN ---
Date of Progress Note: 11/15/2021 Subjective: Seen by bedside. Mental status clearing slowly. Review of Systems: No chest pain, shortness of breath, orthopnea, or cough. No nausea, vomiting, or diarrhea. No dysur ia, polyuria, or urinary urgency. Physical Examination: Vital Signs: Blood pressure is 156/74, pulse 74, breathing at 18, saturating 93% on room air, and te mperature is 97.5. General: Pleasant, middle-aged morbidly obese. No apparent distress. Head and Neck: Pupils are equal, reactive to light. Intact eye movements. No cervical lymphadenopa thy. Neck is supple. Thyroid is not enlarged. Lungs: Clear to auscultation bilaterally. No rhonchi, rales, or crackles. No accessory muscle use. Heart: Regular rate and rhythm. No extra sounds. Abdomen: Soft, nontender. Bowel sounds positive. No organomegaly. No masses or hernia. No rigidi ty or rebound. Extremities: No clubbing or cyanosis. Skin: No rash. No nodules. Lymph Nodes: No cervical lymphadenopathy. Investigations: Hemoglobin 13.8, WBC count 6.6, BUN is 9, creatinine 0.7. Troponin is negative. Assessment And Recommendation: 1.Hypertensive crisis. Her pressure is better. Continue current medications. Explained to the pat ient the importance of being compliant with medicines and low-salt diet is advised. 2.Cerebrovascular accident, lacunar infarct due to hypertension. Blood pressure control and baby as pirin and the neurology followup. SR/MODL Voice ID: [id number] Report ID: [id number]
[2021-11-15] MEDS ORDERED: POTASSIUM 25 MEQ EFFERV TAB PO ONE (14:03)
[2021-11-15 14:14] VITALS: BP 175/90; TEMP 98.5
--- NOTE | 2021-11-15 22:21 | P.DS ---
Admission Date: 11/14/21 Discharge Date: 11/15/21 Disposition: TRANSFER TO [facility] Reason for Admission: Hypertensive emergency, CVA Consultations: Neurology - Dr. Copeland Procedures: Problem List Malignant hypertension/hypertensive emergency AMS/encephalopathy acute infarcts narrowing of right anterior and middle cerebral artery suspected TAE Brief History of Present Illness: 51yo F, PMH: uncontrolled hypertension presents emergency department for high blood pressure, confusion. She has not been taking her blood pressure medication for the past 6 months or so, she also reports she has been having s ome difficulty with her gait for a few months, with sudden onset of significant worsening / weakness of left lower extremity and left upper extremity morning of admission. Patient was severely hypertensive in the emergency department with initial blood pressure of 241/119 as high as 258/139. Labs were significant for mild hypokalemia and mild elevation in BNP she had a CT scan of her head which was significant for a small focal area of hypodensity in the right departmental matter frontal lobe and minimally along the bilateral basal ganglia right hypothalamus perhaps suggesting the possibility of focal areas of lacunar infarct. On exam patient appears somewhat confused does report some weakness in left lower extremity on exam does have slight drift. ED prior wishes to admit for suspected CVA, hypertensive emergency Hospital Course: Patient was treated with PO antihypertensives with improvement, slowly decreasing her blood pressure. She had waxing and waning weakness / neuro exam. On morning after admission, she was noted to have more weakness of LLE, not able to lift off the bed, LUE contracted to her side with intermittent ability to slightly move her arm. She had mild left facial droop. Sensation was intact and symmetric. She was slow to answer questions. MRI revealed acute infarcts in the left aspect of the donna, left frontal lobe, and right frontal lob. MRA noted areas of narrowing involving right anterior and right middle cerebral artery, felt to be acute. MRA was suboptimal due to motion artifact. Left side was not commented on. Neurology was consulted and recommended transfer to tertiary care center for further evaluation / possible 4 vessel angiogram. Patient was accepted and transferred to [facility] stroke center. NIHSS: 8 on morning of 11/15 She was treated with aspirin, plavix, statin, folic acid, in addition to PO antihypertensives - norvasc, lisinopril, HCTZ Vital Signs/Physical Exam: Temp Pulse Resp BP Pulse Ox 98.5 F 78 23 H 175/90 H 95 11/15/21 12:00 11/15/21 12:00 11/15/21 12:00 11/15/21 12:00 11/15/21 12:00 General: Alert, Oriented x3 HEENT: EOMI, Sclerae nonicteric Neck: Supple, No LAD Respiratory: Clear to auscultation bilaterally Cardiovascular: No edema, Regular rate/rhythm Gastrointestinal: Soft and benign, Non-distended, No tenderness Musculoskeletal: Other (L arm contracted) Integumentary: No significant lesion Neurological: Other (LLE: 1/4 str, LUE: 3+/4, RUE: 5/5, RLE: 5/5; mild lower facial droop; intact sensation), Abnormal speech (slow, minimal slur) Laboratory Data at Discharge: WBC 6.6 K/uL (4.3-10.9) D 11/15/21 05:50 Hgb 13.8 g/dL (12.0-15.0) 11/15/21 05:50 Hct 42.3 % (36.0-45.0) 11/15/21 05:50 Plt Count 235 K/uL (152-406) 11/15/21 05:50 PT 13.0 SECONDS (9.5-12.5) H 11/14/21 03:35 INR 1.18 11/14/21 03:35 Sodium 139 mmol/L (136-145) 11/15/21 05:50 Potassium 2.8 mmol/L (3.5-5.1) L* 11/15/21 11:25 BUN 9 mg/dL (7-18) 11/15/21 05:50 Creatinine 0.74 mg/dL (0.55-1.3) 11/15/21 05:50 Glucose 115 mg/dL (74-106) H 11/15/21 05:50 Magnesium 2.3 mg/dL (1.8-2.4) 11/14/21 03:35 Total Bilirubin 0.4 mg/dL (0.2-1.0) 11/15/21 05:50 AST 15 U/L (15-37) 11/15/21 05:50 ALT 21 U/L (12-78) 11/15/21 05:50 Alkaline Phosphatase 101 U/L (45-117) 11/15/21 05:50 Triglycerides 56 mg/dL (<150) 11/15/21 05:50 Cholesterol 182 mg/dL (<200) 11/15/21 05:50 HDL Cholesterol 49 mg/dL (40-60) 11/15/21 05:50 Cholesterol/HDL Ratio 3.71 11/15/21 05:50 Home Medications: NK [No Home Meds] 11/15/21 Followup: Luis Alfredo Tijerina, DO [Primary Care Provider] - Time spent managing pt's care (in minutes): 45
[2021-11-16] MEDS ORDERED: atenoloL 50 MG TAB PO SCH (06:00)
[2021-11-16] MEDS ORDERED: AMLODIPINE 5 MG TAB PO SCH (09:00)
--- NOTE | 2021-11-18 06:55 | ECHO ---
HEIGHT: 5 ft 4 in WEIGHT: 319 lb 0 oz DATE OF STUDY: 11/14/[address]: Damir Butler NP 2-DIMENSIONAL: YES M.MODE: YES DOPPLER: YES COLOR FLOW: YES TDS: PORTABLE: YES DEFINITY: BUBBLE STUDY: DIAGNOSIS: HYPERTENSION EMERGENCY, CEREBRAL VASCULAR ACCIDENT CARDIAC HISTORY: CATHERIZATION: NO SURGERY: NO PROSTHETIC VALVE: NO PACEMAKER: NO MEASUREMENTS (cm) DIASTOLIC (NORMALS) SYSTOLIC (NORMALS) IVSd 1.2 (0.6-1.2) LA Diam 3.7 (1.9-4.0) LVEF 64% LVIDd 4.9 (3.5-5.7) LVIDs 3.2 (2.0-3.5) %FS 35% LVPWd 1.4 (0.6-1.2) Ao Diam 3.0 (2.0-3.7) 2 DIMENSIONAL ASSESSMENT: RIGHT ATRIUM: NORMAL LEFT ATRIUM: NORMAL RIGHT VENTRICLE: NORMAL LEFT VENTRICLE: NORMAL TRICUSPID VALVE: NORMAL MITRAL VALVE: NORMAL PULMONIC VALVE: NORMAL AORTIC VALVE: NORMAL PERICARDIAL EFFUSION: NONE AORTIC ROOT: NORMAL LEFT VENTRICULAR WALL MOTION: NORMAL DOPPLER/COLOR FLOW: NORMAL COMMENTS: NORMAL LEFT VENTRICULAR EJECTION FRACTION 60-65%. NORMAL WALL MOTION. MODERATE CONCENTRIC LEFT VENTRICULAR HYPERTROPHY. TECHNOLOGIST: RHETT VARGAS
== END 2021-11-15 14:18 | disposition short-term general hospital (02) | DRG 65 ==
LOC: ER 01:20 → ERHOLD 05:17 → 2ND 21:39
PROVIDERS: ADMIT Hospitalist; ATTEND Hospitalist
DX: I63.81 Other cerebral infarction due to occlusion or stenosis of small artery (principal); G93.40 Encephalopathy, unspecified; Z68.43 Body mass index [BMI] 50.0-59.9, adult; I16.1 Hypertensive emergency; G81.94 Hemiplegia, unspecified affecting left nondominant side; I48.0 Paroxysmal atrial fibrillation; R29.707 NIHSS score 7; G47.33 Obstructive sleep apnea (adult) (pediatric); I69.392 Facial weakness following cerebral infarction; E66.01 Morbid (severe) obesity due to excess calories; Z91.14 Patient's other noncompliance with medication regimen; Z20.822 Contact with and (suspected) exposure to COVID-19
CPT/HCPCS: 36415; 70450; 70544; 70549; 70553; 71045; 80048; 80053; 80061; 80076; 80307; 83735; 83880; 84132; 84439; 84443; 84484; 85025; 85610; 92523; 93005; 93306; 93880; 96374; 97112; 97116; 97161; 99285; A9577; J0360; J1650; U0003

== ENCOUNTER 2021-12-05 06:31 | Emergency (ER) | payer OTHER ==
[2021-12-05] MEDS ORDERED: SODIUM CHL 0.9% 1000 ML BAG IV ONE (06:32)
[2021-12-05] MEDS ORDERED: Caclcium Chloride 10% INJ SYR IV ONE (06:32)
[2021-12-05] MEDS ORDERED: EPINEPHrine 1 MG/10 ML SYR IV ONE ×2 (06:32)
[2021-12-05] MEDS ORDERED: ATROPINE SULF 1 MG/10 ML SYR IV ONE (06:32)
--- OUTSIDE RECORDS SUMMARY | 2021-12-05 06:37 | XMS REPORT | Continuity of Care Document ---
:1970 Author Organization [facility] t Address [address] [place] [address] Care Team Providers Name Role Phone Jefferson Tijerina Primary Care Physician Jefferson Tijerina Attending Clinician Unavailable Flor MD Attending Clinician GC_ADRIAN_Hector_Elzbieta Attending Clinician Unavailable Kilo Tijerina MD Attending Clinician Amado MORRISSEY Attending Clinician Taj MORRISSEY Attending Clinician GC_BAHBrian_Hector_Elzbieta Admitting Clinician Unavailable Taj MORRISSEY Admitting Clinician AMADO Admitting Clinician Unavailable Payers Payer Name Policy Type Policy Number Effective Date Expiration Date S ource Problems Condition Condition Condition Status Onset Resolution Last Treating Co mments Source Name Details Category Date Date Treatment Clinician Date Acute Acute Disease Active Univers respirator respirator 6-08 [place] y of y failure [place] with with 00 Medical hypoxia hypoxia Branch Acute Acute Disease Active Univers right right 5-30 ity of arterial arterial 00:00: [place] ischemic ischemic 00 Medica l stroke, stroke, 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 (DOMINIK) (DOMINIK) 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 [place] cular cular 00 Medical disease disease Branch At high At high Disease Active Univers risk for risk for 5-30 ity of stroke stroke 00:00: [place] 00 Medical Branch Dyslipidem Dyslipidem Disease Active U nivers ia ia 5-30 ity of 00:00: [place] 00 Medical Branch TAE TAE Disease Active Univers (obstructi (obstructi 5-30 it y of ve sleep ve sleep 00:00: [place] apnea) apnea) 00 Medical Branch Morbid Morbid Disease Active Univers obesity obesity 5-29 ity of with body with body 00:00[place] mass index mass index 00 Me dical of 50 or of 50 or Branch higher higher Left leg Left leg Disease Active Unive rs weakness weakness 5-28 ity of 00:00: [place] 00 Medical Branch Allergies, Adverse Reactions, Alerts Allergy Allergy Status Severity Reaction(s) Onset Inactive Treating Comm ents Source Name Type Date Date Clinician NO KNOWN Drug Active Univers ALLERGIE Class ity of S [facility] Social History Social Habit Start Date Stop Date Quantity Comments Source Exposure to 2021-11-05 2021-11-15 Not sure [facility] SARS-CoV-2 (event) 00:00:00 19:50:00 Medica l Branch Tobacco use and 2021-11-15 2021-11-15 Never used [facility] exposure 00:00:00 00:00:[address] [facility] Sex Assigned At [birth year] [facility] 00:00:00 00:00:00 Medical Branch Smoking Status Start Date Stop Date Source Never smoker [facility] Branch Medications Ordered Filled Start Stop Current Ordering Indication Dosage Frequency Signature Comments Components Source Medication Medication Date Date Medication? Clinician (SIG) Name Name amLODIPine 2021- Yes [id number] 10mg Take 1 Univers 10 mg 11-29 tablet by ity of tablet 00:00: 05:59 mouth [place] 00 :00 daily for Medical 180 days. Branch aspirin 81 2021- Yes [id number] 81mg Take 1 Univers mg chewable 6- 12- tablet by it y of tablet 00:00: 05:59 mouth [place] 00 :00 daily for Medical 180 days. Branch chlorthalid 2021- Yes [id number] 12.5mg Take 0.5 Univers one 25 mg 11-29 tablets by ity of tablet 00:00: 05:59 mouth [place] 00 :00 daily for Medical 180 days. Branch amLODIPine 2021- Yes [id number] 10mg Take 1 Univers 10 mg -05-29 tablet by ity of tablet 00:00: 05:59 mouth [place] 00 :00 daily for Medical 180 days. Branch aspirin 81 2021- Yes [id number] 81mg Take 1 Univers mg chewable 11-29 tablet by it y of tablet 00:00: 05:59 mouth [place] 00 :00 daily for Medical 180 days. Branch chlorthalid 2021- Yes [id number] 12.5mg Take 0.5 Univers one 25 mg 11-29 tablets by ity of tablet 00:00: 05:59 mouth [place] 00 :00 daily for Medical 180 days. Branch clopidogreL 2021- Yes [id number] 75mg Take 1 Univers 75 mg 6-11 -10 tablet by ity of tablet 00:00: 04:59 mouth [place] 00 :00 daily for Medical 90 days. Branch clopidogreL 2021- Yes [id number] 75mg Take 1 Univers 75 mg 6-11 -10 tablet by ity of tablet 00:00: 04:59 mouth [place] 00 :00 daily for Medical 90 days. Branch hydralAZINE 2021- No 10mg 10 mg, Uni vers (APRESOLINE 6-10 06-10 Slow IV ity of ) injection 20:30: 19:29 Push, ONCE [place] 10 mg 00 :00 NOW, 1 Medical dose, On Branch Wed11/28/21 at 1530, STAT hydrALAZINE Yes 50mg 50 mg, Univ ers (APRESOLINE 6-10 Oral, TID, it y of ) tablet 50 19:00: First dose [place] mg 00 (after Medical last Branch modificati on) on Wed11/28/21 at 1400, Until Discontinu ed, KERMIT tc 2021- No [id number] 4.9mCi 4.9 Univer s 99m-albumin 6-10 06-10 millicurie i ty of (DRAXIMAGE 17:00: 16:00 , Oral, [place]al as MAA) 00 :00 ONCE, 1 Medical injection dose, On Branch 4.9 Fri millicurie 11/28/21 at 1200, Routine chlorthalid Yes 12.5mg 12.5 mg, Univers one 6-10 Oral, ity of (HYGROTON) 14:00: DAILY, [place] tablet 12.5 00 First dose Me dical mg (after Branch last modificati on) on Wed11/28/21 at 0900, Until Discontinu ed, Routine atorvastati 2021- Yes [id number] 80mg Take 1 Univers n 80 mg 6- 12-08 tablet by ity of tablet 00:00: 05:59 mouth at [place] 00 :00 bedtime Medical for 180 Branch days. carvediloL 2021- Yes [id number] 25mg Take 1 Univers 25 mg 6- 12-08 tablet by ity of tablet 00:00: 05:59 mouth 2 [place] 00 :00 (two) Medical times Branch daily with meals for 180 days. atorvastati 2021- Yes [id number] 80mg Take 1 Univers n 80 mg 6-10 12-08 tablet by ity of tablet 00:00: 05:59 mouth at [place] 00 :00 bedtime Medical for 180 Branch days. carvediloL 2021- Yes [id number] 25mg Take 1 Univers 25 mg 6-10 12-08 tablet by ity of tablet 00:00: 05:59 mouth 2 [place] 00 :00 (two) Medical times Branch daily with meals for 180 days. sulfur 2021- No [id number] 5mL 5 mL, Unive rs hexafluorid 11-26 06-08 Intravenou i ty of e microsphr 15:15: 15:15 s, ONCE, 1 [place] (LUMASON) 00 :00 dose, On Medica l injection 5 Wed11/26/21 Br anch mL at 1015, Routine
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 approving Restricted medication : MATTIE VASQUEZ clopidogreL Yes 75mg 75 mg, Univ ers (PLAVIX) 75 6-08 Oral, ity of mg tablet 14:00: DAILY, [place] 75 mg 00 First dose Medical on Wed Branch 11/26/21 at 0900, Until Discontinu ed, Routine NaCl 0.9% 2021-0 Yes 1000mL at 75 Unive rs (NS) IV 6-08 mL/hr, IV ity of infusion 08:00: Infusion, [place] 1,000 mL 00 CONTINUOUS Medic al , Starting Branch on Wed11/26/21 at 0300, Until Discontinu ed, Routine NaCl 0.9% 2021-0 Yes 10mL 10 mL, Univer s (NS) 608 Slow IV ity of injection 07:50: Push, PRN, [place] 10 mL 35 Starting Medical on Wed Branch 11/26/21 at 0250, Until Discontinu ed, Routine, line maintenanc e lidocaine 2021-0 Yes 5mL 5 mL, Univers 1% (PF) 11-26 Subcutaneo ity of (XYLOCAINE) 07:50: [place], PRN, [place] injection 5 35 Starting Medi kenji mL on Wed Branch 11/26/21 at 0250, Until Discontinu ed, Routine, Local anesthesia lidocaine 2021-0 2021- No 10mL 10 mL, Unive rs 1% (PF) 11-25 Infiltrati ity o f (XYLOCAINE) 19:45: 19:45 on, ONCE, [place] injection 00 :00 1 dose, On Medi kenji 10 mL Wed11/25/21 Branch at 1445, STAT lidocaine 2021-0 2021- No 10mL 10 mL, Unive rs 1% (PF) 11-25 Infiltrati ity o f (XYLOCAINE) 19:15: 19:15 on, ONCE, [place] injection 00 :00 1 dose, On Medi kenji 10 mL Wed11/25/21 Branch at 1415, Routine NaCl 0.9% 2021-0 2021- No 1000mL at 50 Univ ers (NS) IV 11-25 06-08 mL/hr, IV ity of infusion 14:45: 07:50 Infusion, [place] 1,000 mL 00 :50 CONTINUOUS Medic al , Starting Branch on Wed11/25/21 at 0945, Until Wed11/26/21 at 0250, Routine amLODIPine Yes 10mg 10 mg, Unive rs (NORVASC) 11-25 Oral, ity of tablet 10 14:00: DAILY, [place] mg 00 First dose Medical (after Branch last modificati on) on [facility] 11/25/21 at 0900, Until Discontinu ed, Routine chlorthalid No 12.5mg 12.5 mg, Univers one 11-2509 Oral, ity of (HYGROTON) 14:00: 18:46 DAILY, [place] tablet 12.5 00 :18 First dose Me dical mg on [facility] 11/25/21 at 0900, Until Discontinu ed, Routine amLODIPine 2021- No 5mg 5 mg, Unive rs (NORVASC) 11-24 Oral, ONCE ity of tablet 5 mg 23:30: 23:48 NOW, 1 [place] 00 :00 dose, On Medical [facility] 11/24/21 Branch at 1830, Routine iopamidol 2021- No [id number] 140mL 140 mL, Univers (ISOVUE 11-24 Intravenou ity o f 370-500 mL) 20:45: 20:45 s, ONCE, 1 [place] injection 00 :00 dose, On Medica l 140 mL [facility] 11/24/21 Branch at 1545, Routine hydrALAZINE No 25mg 25 mg, Uni vers (APRESOLINE 11-24 Oral, TID, i ty of ) tablet 25 06:00: 13:40 First dose [place] mg 00 :[address] [facility] 11/24/21 at Branch 0100, Until Discontinu ed, KERMIT amLODIPine 2021- No 5mg 5 mg, Unive rs (NORVASC) 11-23 Oral, ity of tablet 5 mg 20:00: 22:18 DAILY, [place] 00 :46 First dose Medical on [facility] 11/23/21 at 1500, Until Discontinu ed, Routine carvediloL Yes 25mg 25 mg, Unive rs (COREG) 11-23 Oral, BID ity of tablet 25 13:00: MEALS, [place] mg 00 First dose Medical (after Branch last modificati on) on [place] 11/23/21 at 0800, Until Discontinu ed, Routine lidocaine 2021- No 1{patch 1 Patch, Univers (LIDODERM) 11-23 } Topical, ity of 5 % (700 09:15: 20:09 Administer [place] mg/patch) 00 :00 over 12 Medical patch 1 Hours, Branch Patch ONCE, 1 dose, On Wed11/23/21 at 0415, Routine HYDROcodone 2021- No 1{tbl} 1 tablet, Univers -acetaminop 11-23-05 Oral, ity of hen (NORCO 09:15: 08:09 ONCE, 1 [place] 5) 5-325 mg 00 :00 dose, On Medi kenji tablet 1 Wed11/23/21 Branc h tablet at 0415, Routine labetaloL Yes 20mg 20 mg, Univer s (NORMODYNE) 11-21 Slow IV ity o f injection 20:32: Push, [place] 20 mg 55 Q15MIN Medical PRN, Branch Starting on Wed11/21/21 at 1532, Until Discontinu ed, Routine, SBP > 180/DBP > 105 mmhg furosemide 2021- No 20mg 20 mg, Univ ers (LASIX) 11-21- Oral, ity of tablet 20 16:15: 22:19 QAM+PM, [place] mg 00 :37 First dose Medical on Wed Branch 11/21/21 at 1115, Until Discontinu ed, Routine carvediloL 2021- No 12.5mg 12.5 mg, Univers (COREG) 11-20 Oral, BID ity of tablet 12.5 22:00: 12:51 MEALS, [place] mg 00 :45 First dose Medical (after Branch last modificati on) on Wed11/20/21 at 1700, Until Discontinu ed, Routine risperiDONE Yes 1mg 1 mg, Unive rs (RisperDAL 11-20 Oral, BID, ity of M-TAB) 01:00: First dose [place] disintegrat 00 (after Medica l ing tablet last Branch 1 mg modificati on) on Wed11/19/21 at 2000, Until Discontinu ed, Routine lisinopriL 2021- No 20mg 20 mg, Univ ers (PRINIVIL,Z 11-20- Oral, BID, i ty of ESTRIL) 01:00: 20:32 First dose [place] tablet 20 00 :08 (after Medical mg last Branch modificati on) on Wed11/19/21 at 2000, Until Discontinu ed, Routine carvediloL No 6.25mg 6.25 mg, Univers (COREG) 11-19 Oral, BID ity of tablet 6.25 22:00: 14:52 MEALS, [place] mg 00 :52 First dose Medical (after Branch last modificati on) on Wed11/19/21 at 1700, Until Discontinu ed, Routine thiamine Yes 100mg 100 mg, Unive rs (VITAMIN 11-19 Enteral, ity of B1) tablet 15:15: DAILY, [place] 100 mg 00 First dose Medical on Wed11/19/21 at 1015, Until Discontinu ed, Routine chlorhexidi Yes 15mL 15 mL, Univ ers ne 11-19 Oral ity of (PERIDEX) 12:00: ([place] 0.12 % 00 Spit Out), Medical mouthwash Q6H, First Bran ch 15 mL dose on Wed11/19/21 at 0700, Until Discontinu ed, Routine thiamine No 500mg IV Univers (VITAMIN 11-19 Piggyback, ity of B1) 500 mg 01:00: 15:04 BID, 10 [place] as in NaCl 00 :16 doses, Medical 0.9% (NS) First dose Bran ch piggyback on Wed11/18/21 at 1999, Last dose on Wed11/23/21 at 0800, 50 mL chlorhexidi No 15mL 15 mL, [facility] vers ne 11-19 Oral ity of (PERIDEX) 01:00: 11:48 ([place] 0.12 % 00 :58 Spit Out), Medical mouthwash BID, First Bran ch 15 mL dose on Wed11/18/21 at 2000, Until Discontinu ed, Routine LORazepam No 1mg 1 mg, Univer s (ATIVAN) 11-19 Oral, ity of tablet 1 mg 00:30: 00:30 ONCE, 1 [place] 00 :00 dose, On Medical Wed [place] 11/18/21 at 1930, Routine polyethylen 0 Yes 17g 17 g, Unive rs e glycol 11-18 Oral, BID, ity o f 3350 powder 16:15: First dose [place] 17 g 00 on [facility] 11/18/21 at Branch 1115, Until Discontinu ed, Routine Saline 0 Yes [id number] 6mL 6 mL, Uni vers Bubble 11-18 [id number] Injection, ity o f Study 14:09: SEE-INSTRU [place] 04 CTIONS, [facility] Starting [place] on Wed11/18/21 at 0909, Until Discontinu ed, Routine docusate Yes 100mg 100 mg, Unive rs (COLACE) 11-18 Oral, ity of capsule 100 14:00: DAILY, [place] mg 00 First dose Medical on [facility] 11/18/21 at 0900, Until Discontinu ed, Routine Sliding Yes Subcutaneo Univ ers Scale 5-30 us, TID ity of Insulin - 22:00: MEALS+HS, [place] as Lispro 00 First dose Medical (HumaLOG) + on Wed [place] [facility] 11/17/21 at Testing 1700, Until Discontinu ed, Routine carvediloL 0 2021- No 3.125mg 3.125 mg, Univers (COREG) 11-17 06 Oral, BID ity of tablet 22:00: 15:04 MEALS, [place] 3.125 mg 00 :16 First dose Medic al on [facility] 11/17/21 at 1700, Until Discontinu ed, Routine hydralAZINE 0 Yes 10mg 10 mg, Univ ers (APRESOLINE 5-30 Slow IV ity o f ) injection 20:01: Push, [place] 10 mg 22 Q6HPRN, [facility] Starting Branch on [facility] 11/17/21 at 1501, Until Discontinu ed, Routine, SBP: 180mmHg and/or DBP> 105mmHg dexMEDEtomi 2021-0 Yes .2ug/kg 0.2-1.5 Univers dine 200 5-30 /h mcg/kg/hr ity of mcg in 0.9 17:36: ?140.4 kg [place] % NaCl 50 43 (7.02-52.6 Medi kenji mL 5 mL/hr), Branch (PRECEDEX) IV RTU IV Infusion, infusion TITRATE, Sedation-R ASS score (0 to -1), Starting on Wed11/17/21 at 1236
In itiate infusion at 0.2 mcg/kg/hr and titrate by 0.1 mcg/kg/hr every 30 minutes to goal sedation score. Maximum dose = 1.5 mcg/kg/hr. If goal not maintained at maximum allowed dose, contact prescriber .
NaCl 0.9% 2021- No IV Univers (NS) 1000 11-17 06-01 Infusion, ity of mL + KCL 20 17:30: 03:39 at 75 [place] mEq 00 :43 mL/hr, [facility] CONTINUOUS Branch , Starting on Wed11/17/21 at 1230, Until Wed11/18/21 at 2239, Routine niCARdipine 2021- No 2.5mg/h 2.5-15 Univers (CARDENE 11-17 06-05 mg/hr ity of I.V.) 40 mg 17:23: 06:52 (12.5-75 [place] in NaCL 200 27 :22 mL/hr), IV Me dical mL (RTU) Infusion, Branch infusion TITRATE, DBP Goal < 110 mmHg, SBP goal 140-180 mmHg, Starting on Wed11/17/21 at 1223
In itiate infusion at 2.5 mg/hr.&nbs p; Ti trate by 2.5 mg/hr every 5 minutes to 15 minutes as needed to achieve and maintain goal blood pressure. Maximum dose = 15 mg/hr. If goal not maintained at maximum allowed dose, contact prescriber .
acetaminoph Yes 650mg 650 mg, Un allison en 30 Oral, ity of (TYLENOL) 17:22: Q6HPRN, [place] tablet 650 21 Starting Medic al mg on Wed11/17/21 at 1222, Until Discontinu ed, Routine, Pain (scale 1-3), Temp > 37.5 C hydralAZINE 2021- No 5mg 5 mg, Slow Univers (APRESOLINE 11-17 05-30 IV Push, ity of ) injection 15:45: 14:46 ONCE, 1 [place] 5 mg 00 :00 dose, On Medical Mon Branch 11/17/21 at 1045, STAT hydralAZINE 2021-0 202- No 5mg 5 mg, Slow Univers (APRESOLINE 5-30 05-30 IV Push, ity of ) injection 15:15: 14:09 ONCE, 1 [place] 5 mg 00 :00 dose, On [facility] 11/17/21 at 1015, STAT lisinopriL 2021-0 2- No 20mg 20 mg, Univ ers (PRINIVIL,Z 5-30 06-01 Oral, ity of ESTRIL) 14:00: 22:19 DAILY, [place] tablet 20 00 :36 First dose Medi kenji mg (after Branch last modificati on) on [facility] 11/17/21 at 0900, Until Discontinu ed, Routine hydrOXYzine 2021-2021- No 10mg 10 mg, Uni vers (ATARAX) 5-30 05-30 Oral, ity of tablet 10 04:00: 04:15 ONCE, 1 [place] mg 00 :00 dose, On [facility] 11/16/21 at 2315, Routine hydralAZINE 2021-2021- No 5mg 5 mg, Slow Univers (APRESOLINE 5-30 05-30 IV Push, ity of ) injection 03:30: 02:28 ONCE, 1 [place] 5 mg 00 :00 dose, On [facility] 11/16/21 at 2230, STAT atorvastati Yes 80mg 80 mg, Univ ers n (LIPITOR) 5-30 Oral, QHS, it y of tablet 80 02:00: First dose [place] mg 00 (after Medical last Branch reorder) on [place] 11/16/21 at 2100, Until Discontinu ed, Routine hydralAZINE 2021-0 202- No 5mg 5 mg, Slow Univers (APRESOLINE 5-30 05-30 IV Push, ity of ) injection 02:00: 01:17 ONCE, 1 [place] 5 mg 00 :00 dose, On [facility] 11/16/21 at 2100, STAT lisinopriL 2021-0 2022- No 10mg 10 mg, Univ ers (PRINIVIL,Z 5-30 05-30 Oral, ity of ESTRIL) 01:11: 01:16 ONCE, 1 [place] tablet 10 00 :00 dose, On Medica l mg [facility] 11/16/21 at 2015, Routine labetaloL 2021- No 20mg 20 mg, Unive rs (NORMODYNE) 11-16 Slow IV ity of injection 22:55: 23:06 Push, [place] 20 mg 00 :00 ONCE, 1 Medical dose, On Branch [place] 11/16/21 at 1800, KERMIT aspirin Yes 81mg 81 mg, Univers chewable 11-16 Oral, ity of tablet 81 21:15: DAILY, [place] mg 00 First dose Medical on [facility] 11/16/21 at 1615, Until Discontinu ed, Routine labetaloL 2021- No 5mg 5 mg, Slow U nivers (NORMODYNE) 11-16 IV Push, ity of injection 5 15:16: 14:35 PRN, [place] mg 22 :25 Starting Medical on [facility] 11/16/21 at 1016, Until 11/17/21 at 0935, Routine, IF BP >18 0/105 clopidogreL 2021- No 75mg 75 mg, Uni vers (PLAVIX) 75 11-16 0606 Oral, ity of mg tablet 14:00: 20:07 DAILY, [place] 75 mg 00 :17 First dose Medical on [facility] 11/16/21 at 0900, Until Discontinu ed, Routine lisinopriL 2021- No 10mg 10 mg, Univ ers (PRINIVIL,Z 11-16 Oral, ity of ESTRIL) 14:00: 01:12 DAILY, [place] tablet 10 00 :11 First dose Medi kenji mg (after Branch last modificati on) on [place] 11/16/21 at 0900, Until Discontinu ed, Routine potassium 2021- No 20meq 20 mEq, IV Univers chloride 20 11-16 Piggyback, i ty of mEq/100 mL 11:00: 14:59 Q2H, 2 [place] (KCL) 20 00 :00 doses, Medical mEq/100 mL First dose Bra nch RTU IVPB 20 on [place] mEq 11/16/21 at 0600, Last dose on [place] 11/16/21 at 0800, 100 mL iopamidol 2021- No [id number] 70mL 70 mL, Univers (ISOVUE 11-16 [id number] Intravenou ity of 370-500 mL) 06:45: 06:45 s, ONCE, 1 [place] injection 00 :00 dose, On Medica l 70 mL [facility] 11/16/21 at 0200, Routine NaCl 0.9% 2021- No 1000mL at 50 Univ ers (NS) IV 11-16 05-30 mL/hr, IV ity of infusion 03:45: 20:05 Infusion, [place] as 1,000 mL 00 :26 CONTINUOUS Medic al , Starting Branch on [facility] 11/15/21 at 2245, Until 11/17/21 at 1505, Routine atorvastati 2021- No 40mg 40 mg, Uni vers n (LIPITOR) 11-16 Oral, QHS, i ty of tablet 40 02:00: 14:33 First dose [place] mg 00 :53 on [facility] Medical 11/15/21 at Branch 2100, Until Discontinu ed, Routine LORazepam Yes 1mg 1 mg, Univers (ATIVAN) 11-16 Oral, PRN, ity o f tablet 1 mg 01:13: 2 doses, [place] 12 Starting Medical on [facility] Branch 11/15/21 at 2013, Until Discontinu ed, Routine, before MRI heparin No 5000U 5,000 Univers (porcine) 11-16 06-07 Units, ity of injection 01:00: 21:06 Subcutaneo [place] 5,000 Units 00 :38 us, Q12H, Med ical First dose Branch on [facility] 11/15/21 at 2000, Until Discontinu ed, Routine aspirin 2021- No 81mg 81 mg, Univers chewable 11-15 Oral, ONCE ity of tablet 81 21:15: 03:50 NOW, 1 [place] mg 00 :00 dose, On Medical [facility] Branch 11/15/21 at 1615, STAT Lisinopril- Lisinopril- Yes Luis Alfredo 1 tablet Common Hydrochloro Hydrochloro 3-12 [facility] thiazide thiazide 00:00: - [facility] Atenolol Atenolol Yes Luis Alfredo 1 tablet C ommon [place] [facility] - [facility] HydrALAZINE HydrALAZINE Yes Luis Alfredo 1 tablet Common HCl HCl [place] with food Spirit [facility] Magnesium Magnesium Yes Luis Alfredo 1 tablet Common [place] with a Spirit meal [facility] B Complex B Complex Yes Luis Alfreod not Com mon [place] defined [facility] Potassium Potassium Yes Luis Alfredo not Com mon [place] defined [facility] Vitamin D3 Vitamin D3 Yes Luis Alfredo not C ommon [place] defined [facility] Vital Signs Vital Name Observation Time Observation Value Comments Source Systolic blood 2021-11-28 20:56:00 134 mm[Hg] Univer sity [facility] Diastolic blood 2021-11-28 20:56:00 79 mm[Hg] [facility] rate 2021-11-28 20:56:00 84 /min [facility] Body temperature 2021-11-28 20:56:00 36.33 Deepa [facility] Oxygen saturation in 2021-11-28 20:56:00 98 /min [facility] Arterial blood by [facility] [place] Pulse oximetry [place] Respiratory rate 2021-11-28 19:10:00 18 /min [facility] Body height 2021-11-26 15:06:00 162.6 cm [facility] Body weight 2021-11-26 15:06:00 146.058 kg [facility] BMI 2021-11-26 15:06:00 55.27 kg/m2 [facility] Procedures Procedure Date / Time Performing Clinician Source Performed POCT GLUCOSE (AUTOMATED) 2021-11-28 Kasey Vang [facility] ity of 18:46:00 [facility] NM LUNG PERFUSION ONLY 2021-11-28 Brianna Flor [facility] Sout[facility] rsity of 16:30:00 [facility] POCT GLUCOSE (AUTOMATED) 2021-11-28 Kasey Vang [facility] ity of 12:58:00 [facility] BASIC METABOLIC PANEL (NA, K, 2021-11-28 Nestor Flor [facility], CO2, GLUCOSE, BUN, 10:41:00 [facility] ical CREATININE, CA) Branch POCT GLUCOSE (AUTOMATED) [facility] 01:07:[address] [facility] [address] HEAD WO CONTRAST 2021-11-28 Brianna Flor [facility] ty of 00:39:21 [facility] POCT GLUCOSE (AUTOMATED) 2021-11-27 [facility], Kasey Univers ity of 21:54:00 [facility] CBC WITHOUT DIFF 2021-11-27 Flor [facility] of 18:23:00 [facility] LACTIC ACID WHOLE BLOOD 2021-11-27 Jonathan Jameson [facility] ty of 18:23:00 [facility] BASIC METABOLIC PANEL (NA, K, 2021-11-27 [facility], CO2, GLUCOSE, BUN, 18:22:00 [place] Med ical CREATININE, CA) Branch EXTRA TUBE RED 2021-11-27 [facility] of 18:20:00 [facility] POCT GLUCOSE (AUTOMATED) 2021-11-27 [facility], Kasey Univers ity of 18:06:00 [facility] POCT GLUCOSE (AUTOMATED) 2021-11-27 [facility], [facility] ity of 13:53:00 [facility] POCT GLUCOSE (AUTOMATED) 2021-11-27 [facility], [facility] ity of 00:54:00 [facility] TROPONIN I 2021-11-26 Chandana, [facility] of 23:10:00 [facility] POCT GLUCOSE (AUTOMATED) 2021-11-26 [facility], Kasey [facility] ity of 21:04:00 [facility] AC PANEL 20 + LACTIC ACID 2021-11-26 ChandanaTomeka martin [facility] versity of 19:11:00 [facility] TROPONIN I 2021-11-26 [facility], [facility] of 18:42:00 [facility] BASIC METABOLIC PANEL (NA, K, 2021-11-26 [facility], CO2, GLUCOSE, BUN, 18:42:00 [place] Med ical CREATININE, CA) Branch XR CHEST 1 VW 2021-11-26 Chand[facility], [facility] of 17:04:00 [facility] POCT GLUCOSE (AUTOMATED) 2021-11-26 [facility] ity of 16:41:00 [facility] TRANSTHORACIC ECHO (TTE) 2021-11-26 Brianna Flor versity of COMPLETE W/ CONTRAST 15:04:00 [facility] POCT GLUCOSE (AUTOMATED) 2021-11-26 [facility] ity of 14:23:00 [facility] URINALYSIS 2021-11-26 [facility] of 10:33:00 [facility] BLOOD CULTURE SCREEN 2021-11-26 [facility] PHOSPHORUS 2021-11-26 [facility] of 08:22:00 [facility] MAGNESIUM 2021-11-26 [facility] of 08:22:00 [facility] TROPONIN I 2021-11-26 [facility] of 08:22:00 [facility] BASIC METABOLIC PANEL (NA, K, 2021-11-26 [facility] of CL, CO2, GLUCOSE, BUN, 08:22:00 [facility] ical CREATININE, CA) Branch CBC WITH DIFF 2021-11-26 [facility] of 08:22:00 [facility] AC PANEL 20 + LACTIC ACID 2021-11-26 [facility] ersity of 08:20:[address] [facility] [address] HEAD WO CONTRAST 2021-11-26 [facility] o f 05:50:05 [facility] AC PANEL 20 + LACTIC ACID 2021-11-26 [facility] ersity of 02:43:00 [facility] POCT GLUCOSE (AUTOMATED) 2021-11-26 Angel Tijerina ity of 02:03:00 [facility] ELECTROENCEPHALOGRAM 2021-11-26 [facility] of 00:00:00 [facility] POCT GLUCOSE (AUTOMATED) 2021-11-25 Angel Tijerina [facility] ity of 22:52:00 [facility] CEREBROSPINAL FLUID PROTEIN 2021-11-25 [facility] ersity of 19:00:00 [facility] CEREBROSPINAL FLUID GLUCOSE 2021-11-25 Phani [facility] ersity of 19:00:00 [facility] BODY FLUID DIRECT COUNT 2021-11-25 [facility] ty of 19:00:00 [facility] CSF/BILLBOARD POSTER SHUNT CULTURE 2021-11-25 Phani [facility] of 19:00:00 [facility] CSF CULTURE 2021-11-25 Phani [facility] of 19:00:00 [facility] MENINGITIS/ENCEPHALITIS PANEL 2021-11-25 [place] iversity of BY PCR 19:00:00 [facility] POCT GLUCOSE (AUTOMATED) 2021-11-25 Angel Tijerina [facility] ity of 16:10:00 [facility] US RENAL ARTERY LIMITED - BY 2021-11-25 Edelmira Abdi niversity of VASCULAR LAB 15:35:54 [facility] POCT GLUCOSE (AUTOMATED) 2021-11-25 Angel Tijerina [facility] ity of 12:46:00 [facility] POCT GLUCOSE (AUTOMATED) 2021-11-25 Angel Tijerina [facility] ity of 01:06:00 [facility] VERIFYNOW ASPIRIN TEST 2021-11-25 Flor Brianna Unive rsity of 00:35:00 [facility] POCT GLUCOSE (AUTOMATED) 2021-11-24 Angel Tijerina [facility] ity of 21:27:00 [facility] CT HEART W CONTRAST 2021-11-24 [facility] of STRUCTURES AND CARDIAC 18:59:00 [facility] ical FUNCTION (NON CORONARY) Branch CORTISOL AM 2021-11-24 Edelmira Abdi University of 16:43:00 [facility] METANEPHRINES, PLASMA 2021-11-24 Angel Tijerina University of 16:42:00 [facility] POCT GLUCOSE (AUTOMATED) 2021-11-24 Angel Tijerina Univers ity of 01:24:00 [facility] POCT GLUCOSE (AUTOMATED) 2021-11-23 Tijerina, Angel Univers ity of 21:51:00 [facility] POCT GLUCOSE (AUTOMATED) 2021-11-23 Tijerina, Angel Univers ity of 17:38:00 [facility] POCT GLUCOSE (AUTOMATED) 2021-11-23 Tijerina, Angel Univers ity of 12:38:00 [facility] BASIC METABOLIC PANEL (NA, K, 2021-11-23 [facility] of CL, CO2, GLUCOSE, BUN, 08:23:00 [place] [facility] CREATININE, [place]) Branch CBC WITHOUT DIFF 2021-11-23 [facility] of 08:23:00 [facility] POCT GLUCOSE (AUTOMATED) 2021-11-23 Dabi, Tremaine Univers ity of 01:09:00 [facility] POCT GLUCOSE (AUTOMATED) 2021-11-22 Dabi, Tremaine Univers ity of 20:58:00 [facility] POCT GLUCOSE (AUTOMATED) 2021-11-22 Dabi, Tremaine Univers ity of 17:51:00 [facility] POCT GLUCOSE (AUTOMATED) 2021-11-22 Dabi, Tremaine Univers ity of 13:59:00 [facility] MAGNESIUM 2021-11-22 Tomeka Ellington [facility] of 08:22:00 [facility] BASIC METABOLIC PANEL (NA, K, 2021-11-22 Tomeka Ellington [facility] of CL, CO2, GLUCOSE, BUN, 08:22:00 [place] [facility] ical CREATININE, CA) Branch CBC WITH DIFF 2021-11-22 Tomeka Ellington [facility] of 08:22:00 [facility] POCT GLUCOSE (AUTOMATED) 2021-11-22 Dabi, Tremaine Univers ity of 01:40:00 [facility] POCT GLUCOSE (AUTOMATED) 2021-11-21 Dabi, Tremaine Univers ity of 21:29:00 [facility] POCT GLUCOSE (AUTOMATED) 2021-11-21 Dabi, Tremaine Univers ity of 16:39:00 [facility] POCT GLUCOSE (AUTOMATED) 2021-11-21 Dabi, Tremaine Univers ity of 12:44:00 [facility] MAGNESIUM 2021-11-21 Chand[facility] of 08:20:00 [facility] BASIC METABOLIC PANEL (NA, K, 2021-11-21 [facility] of CL, CO2, GLUCOSE, BUN, 08:20:00 [facility] ica CREATININE, CA) Branch CBC WITH DIFF 2021-11-21 Chandana [facility] of 08:20:00 [facility] POCT GLUCOSE (AUTOMATED) 2021-11-21 Dabi, Tremaine Univers ity of 01:09:00 [facility] POCT GLUCOSE (AUTOMATED) 2021-11-20 Dabi, Tremaine Univers ity of 21:56:00 [facility] DUPLEX VENOUS LEGS BILATERAL 2021-11-20 Chandana, [facility] of - BY VASCULAR LAB 17:59:47 [facility] POCT GLUCOSE (AUTOMATED) 2021-11-20 Dabi, Tremaine Univers ity of 16:56:00 [facility] POCT GLUCOSE (AUTOMATED) 2021-11-20 Dabi, Tremaine Univers ity of 12:22:00 [facility] MAGNESIUM 2021-11-20 [facility] of 11:11:00 [facility] BASIC METABOLIC PANEL (NA, K, 2021-11-20 [facility] of CL, CO2, GLUCOSE, BUN, 11:11:[address] [facility] CREATININE, CA) Branch CBC WITH DIFF 2021-11-20 [facility] of 11:11:00 [facility] POCT GLUCOSE (AUTOMATED) 2021-11-20 Dabi, Tremaine Univers ity of 01:27:00 [facility] POCT GLUCOSE (AUTOMATED) 2021-11-19 Dabi, Tremaine Univers ity of 21:18:00 [facility] POCT GLUCOSE (AUTOMATED) 2021-11-19 Dabi, Tremaine Univers ity of 16:54:00 [facility] POCT GLUCOSE (AUTOMATED) 2021-11-19 Dabi, Tremaine Univers ity of 12:22:00 [facility] MAGNESIUM 2021-11-19 [facility] 08:46:00 [facility] C-REACTIVE PROTEIN 2021-11-19 Amrani, [facility] of 08:46:00 [facility] BASIC METABOLIC PANEL (NA, K, 2021-11-19 Tomeka [facility] of CL, CO2, GLUCOSE, BUN, 08:46:00 [facility] ical CREATININE, CA) Branch SEDIMENTATION RATE 2021-11-19 [facility] of 08:46:00 [facility] CBC WITH DIFF 2021-11-19 Rudy Ellingtonhossein [facility] of 08:46:00 [facility] POCT GLUCOSE (AUTOMATED) 2021-11-19 Dabi, [facility] Univers ity of 01:39:00 [facility] POCT GLUCOSE (AUTOMATED) 2021-11-18 Dabi, [facility] Univers ity of 21:31:00 [facility] AC PANEL 20 + LACTIC ACID 2021-11-18 Tomeka Ellington [facility] versity of 20:07:00 [facility] PROTHROMBIN TIME / INR 2021-11-18 [facility] 19:55[facility]00 [facility] POCT GLUCOSE (AUTOMATED) 2021-11-18 Dabi, [facility] ity of 16:53:00 [facility] MR ANGIOGRAM NECK WO CONTRAST 2021-11-18 Nestor Flor [facility] of 14:13:13 [facility] TRANSTHORACIC ECHO (TTE) 2021-11-18 Karely Alegre [facility] ity of COMPLETE 14:08:[address] [facility] [address] HEAD WO CONTRAST 2021-11-18 Brianna Flro [facility] ty of 14:01:27 [facility] MR ANGIOGRAM HEAD WO CONTRAST 2021-11-18 Nestor Flor [facility] of 14:00:30 [facility] MR BRAIN W WO CONTRAST 2021-11-18 Brianna Flor [facility] rsity of 14:00:15 [facility] POCT GLUCOSE (AUTOMATED) 2021-11-18 Maciel, [facility] Univers ity of 12:40:00 [facility] MAGNESIUM 2021-11-18 Karely Alegre [facility] of 06:35:00 [facility] TROPONIN I 2021-11-18 [facility] University of 06:35:00 [facility] BASIC METABOLIC PANEL (NA, K, 2021-11-18 Karely Alegre Un iversity of CL, CO2, GLUCOSE, BUN, 06:35:00 [facility] ical CREATININE, CA) [place] CBC WITH DIFF 2021-11-18 Karely Alegre [facility] of 06:35:00 [facility] ANTI-NUCLEAR ANTIBODY SCREEN 2021-11-18 Edelmira Abdi niversity of 06:35:00 [facility] MISCELLANEOUS SEND OUT TEST 2021-11-18 Tremaine Fischer [facility] ersity of 06:35:00 [facility] ANTI-NUCLEAR ANTIBODY TITER 2021-11-18 Edelmira Abdi Un iversity of 06:35:00 [facility] THYROID PEROXIDASE (TPO) AB 2021-11-18 Edelmira Abdi U niversity of 06:35:00 [facility] ANTI-SSB(LA) 2021-11-18 Edelmira Abdi [facility] of 06:35:00 [facility] ANTI-DOUBLE STRANDED DNA 2021-11-18 Edelmira Abdi [facility] rsity of 06:35:00 [facility] LUPUS ANTICOAGULANT 2021-11-18 Edelmira Abdi [facility] of EVALUATION 06:35:00 [facility] LUPUS ANTICOAGULANT 2021-11-18 Edelmira Abdi [facility] of EVALUATION 06:35:00 [facility] GALV ONLY - SYPHILIS IGG/IGM 2021-11-18 Edelmira Abdi U niversity of 06:35:00 [facility] ANTITHROMBIN ACTIVITY 2021-11-18 Edelmira Abdi [facility] ty of 06:35:00 [facility] PROTEIN C ACTIVITY 2021-11-18 Edelmira Abdi [facility] of 06:35:00 [facility] PROTEIN S ACTIVITY 2021-11-18 Edelmira Abdi [facility] of 06:35:00 [facility] ANTI-NUCLEAR 2021-11-18 Edelmira Abdi of ANTIBODY-PATHOLOGIST 06:35:00 [facility] al INTERPRETATION Branch ANCA SCREEN 2021-11-18 Edelmira Abdi [facility] of 06:35:00 [facility] TROPONIN I 2021-11-18 Tremaine Fischer [facility] of 00:47:00 [facility] HEPATITIS B SURFACE ANTIGEN 2021-11-18 Edelmira Abdi Un iversity of 00:47:00 [facility] HCV ANTIBODY 2021-11-18 [facility] of 00:47:00 [facility] HBC ANTIBODY (IGM & IGG) 2021-11-18 [facility] rsity of 00:47:00 [facility] HOMOCYSTEINE 2021-11-18 [facility] of 00:47:00 [facility] HIV 1/2 AG-AB WITH REFLEX 2021-11-18 [facility] ersity of 00:47:00 [facility] POCT GLUCOSE (AUTOMATED) 2021-11-18 Tremaine Fischer [facility] ity of 00:34:00 [facility] POCT GLUCOSE (AUTOMATED) 2021-11-17 Tremaine Fischer [facility] ity of 23:07:[address] [facility] [address] HEAD WO CONTRAST 2021-11-17 Yojana [facility] o f 22:08:47 [facility] URINALYSIS 2021-11-17 Yojana [facility] of 21:23:00 [facility] HB ECG ROUTINE & RHYTHM STRIP 2021-11-17 Natan Alegreena Un iversity of 21:12:07 [facility] XR CHEST 1 VW 2021-11-17 Sis [facility] of 20:19:00 [facility] POCT GLUCOSE (AUTOMATED) 2021-11-17 Tremaine Fischer Univers ity of 18:18:00 [facility] TROPONIN I 2021-11-17 Tremaine Fischer [facility] of 16:57:[address] [facility] CT ANGIOGRAM HEAD 2021-11-16 Flor Brianna [facility] of 06:50:[address] [facility] CT HEAD WO CONTRAST 2021-11-16 Flor Briannafranco Dubois ty of 06:50:00 [facility] CT ANGIOGRAM NECK 2021-11-16 Flor Brianna [facility] 06:50:00 [facility] THYROID STIMULATING HORMONE 2021-11-16 Flor Brianna [facility] 00:13:00 [facility] COMP. METABOLIC PANEL (49421) 2021-11-16 Nsetor Flor [facility] 00:13:00 [facility] LIPID PANEL (27171)(TOTAL 2021-11-16 Brianna Flor Un iversity of CHOLESTEROL, TRIGLYCERIDES, 00:13:00 [facility] CBC WITHOUT DIFF 2021-11-16 Flor Brianna [facility] 00:13:00 [facility] GLYCOSYLATED HEMOGLOBIN (A1C) 2021-11-16 pr Nestor Mensah [facility] 00:13:00 [facility] FACTOR 5 LEIDEN 2021-11-16 Edelmira Abdi [facility] 00:13:00 [facility] Encounters Start End Encounter Admission Attending Care Care Encounter Source Date/Time Date/Time Type Type Clinicians Facility Department ID 2021-07-16 Outpatient Tijerina, STLMLC STLMLC [id number] Common 13:32:59 [facility] [address]60 [facility] 2021-07-16 Outpatient Tijerina, STLMLC STLMLC [id number] Common 13:02:52 Luis Alfredo [id number] [facility] 2021-07-16 Outpatient Tijerina, STLMLC STLMLC [id number] Common 12:53:52 Luis Alfredo 08569 [facility] 2021-07-16 Outpatient Tijerina, STLMLC STLMLC [id number] Common 12:53:26 Luis Alfredo 24231 [facility] 2021-07-16 Outpatient Tijerina, STLMLC STLMLC [id number] Common 12:53:05 Luis Alfredo 93119 [facility] 2021-07-16 Outpatient Tijerina, STLMLC STLMLC [id number] Common 11:54:03 Luis Alfredo 39966 [facility] 2021-07-16 Outpatient Tijerina, STLMLC STLMLC [id number] Common 11:53:49 Luis Alfredo 75503 [facility] 2021-07-16 Outpatient Tijerina, STLMLC STLMLC [id number] Common 11:21:56 Luis Alfredo [id number] [facility] 2021-07-16 Outpatient [facility]ijerina[facility] [id number] Common 11:17:06 Luis Alfredo 24591 [facility] 2021-07-16 Outpatient Tijerina, STLMLC STLC [id number] Common 11:16:54 Luis Alfredo 00075 [facility] 2021-07-16 Out[facility] Tijerina[facility] [id number] Common 11:16:13 Luis Alfredo 68502 [facility] 2021-07-16 Outpatient Tijerina, [facility] [id number] Common 11:16:04 Luis Alfredo 45050 [facility] 2021-07-16 [facility] [id number] Common 11:15:25 Luis Alfredo 42694 [facility] 2021-07-16 [facility] [id number] Common 11:13:34 Luis Alfredo 00648 [facility] 2021-12-05 2021-12-05 Telephone aarti YOUNG Mensah [id number] [facility] 00:00:00 00:00:00 Brianna ROBERSON [id number] i [facility] [id number] [facility] [id number] [facility] 012 Branch 2021-12-02 2021-12-02 Outpatient GC_BAHC_Tod PRIV PRIV [id number] [facility] 09:55:00 09:55:00 d_J [id number] Medica l 2021-11-15 2021-11-[address] [facility] [id number] [facility] 16:01:00 17:30:00 Encounter Tremaine Fischer [id number] [facility] [id number] [place] [address] [id number] [facility] 098 Branch 2021-11-15 2021-11-28 Inpatient U [facility] [id number] 91 [facility] 16:01:00 17:30:00 KASEY ity [facility] 2021-11-07 2021-11-07 ambulatory STLMLC STLMLC [id number] Common 00:00:00 00:00:00 [facility] 2020-10-31 2020-10-31 Outpatient STLMLC STLMLC [id number] Common 00:00:00 00:00:00 [facility] 2020-10-11 2020-10-11 Outpatient STLMLC STLMLC [id number] Common 00:00:00 00:00:00 [facility] 2020-10-07 2020-10-07 Outpatient STLMLC STLMLC [id number] Common 00:00:00 00:00:00 [facility] 2020-06-05 2020-06-05 Outpatient STLMLC STLMLC [id number] Common 00:00:00 00:00:00 [facility] 2020-04-01 2020-04-01 Outpatient STLMLC STLMLC [id number] Common 00:00:00 00:00:00 [facility] 2020-01-01 2020-01-01 [facility] [id number] Common 09:00:00 09:00:[address] [facility] 2019-11-20 2019-11-20 [facility] [id number] Common 15:34:00 15:34:[address] [facility] 2019-11-14 2019-11-14 [facility] [id number] Common 11:00:00 11:00:[address] [facility] 2019-11-06 2019-11-06 [facility] [id number] Common 08:45:00 08:45:[address] [facility] 2019 2019 [facility] [id number] Common 11:45:00 11:45:[address] [facility] 2019-09-27 2019-09-27 [facility] [id number] Common 15:45:00 15:45:[address] [facility] 2019-08-31 2019-08-31 [facility] [id number] Common 13:30:00 13:30:00 t [place] [employer] [address] [facility] Results Test Description Test Time Test Comments Results Result Comments Source POCT GLUCOSE (AUTOMATED) 2021-11-28 18:47:26 Test Item Value Reference Range Interpretation Comme nts POCT GLU (test code = 1622258774) 104 mg/dL 70-110 Lab Interpretation (test code = 57272-8) [id number] 17:41:41 Test Item Value Reference Range Interpretation Comments METANEPH (test code = 0.2 nmol/L 0.00-0.49 08536-3) NORMETNEPH (test code 1 nmol/L 0.00-0.89 H = 28041-9) METAPF INT (test code See Note INTERP RETIVE = 00870-8) INFORMATION: Metanephrines, Plasma (Free) This kyung t is useful in the detection of pheochromocytom a, a rare neuroendoc rine tumor. The denise rity of patients with pheochromocytom a have a plasma normetanephrine concentration i n excess of 2.2 n mol/L and/or a metane phrine concentration i n excess of 1.1 n mol/L. Increased concentrations of these analytes serve as confirmation for diagnosis. Veronica ents with essential hypertension an d plasma concentr ations of normetanephr ine below 0.9 nmol/ L and a metanephrine concentration b elow 0.5 nmol/L, can be excluded from f urther testing. If cli nical suspicion remai ns, repeat testing or testing for metanephrines i n a 24-hr. urine sp ecimen should be consi dered. This test was developed and i ts performance characteristics determined by [facility]. I t has not been cleare d or approved by the [place] Food and Drug Administration. This test was perfor med in a CLIA certifie d laboratory and is intended for cl inical purposes.Perfor med By: TANIA Condoni [address] [place], [place] [address]Lmmaisqvdn Director: Taylor Chicas MD Lab Interpretation Abnormal (test code = 59163-4) [facility] [id number] 13:14:55 Test Item Value Reference Range Interpretation Comments CSF CULTURE (test No organisms isolated code = 606-4) Gram stain (test code Moderate Mononuclear = 664-3) cells [facility]2021-11-28 13:00:13 Test Item Value Reference Range Interpretation Comments POCT GLU (test code = 3783698119) 104 mg/dL 70-110 Lab Interpretation (test code = Normal 60143-0) [facility] METABOLIC PANEL (NA, K, CL, CO2, GLUCOSE, BUN, CREATININE, CA)2021-11-28 11:25:15 Test Item Value Reference Range Interpretation Comments NA (test code = 142 mmol/L 135-145 4981797011) K (test code = 4.9 mmol/L 3.5-5.0 Slight 6113218266) hemolysis CL (test code = 112 mmol/L 98-108 H 0061345149) CO2 TOTAL (test code 25 mmol/L 23-31 = 6011729619) AGAP (test code = 2-16 9261078344) BUN (test code = 51 mg/dL 7-23 H Slight 5593476024) hemolysis GLUCOSE (test code = 95 mg/dL 70-110 9071962737) CREATININE (test code 0.91 mg/dL 0.50-1.04 = 4164553989) CALCIUM (test code = 9.4 mg/dL 8.6-10.6 9768974547) eGFR (test code = mL/min/1.73m2 5964343450) ZAC (test code = ZAC) Association of Glomerular Filtration Rate (GFR) and Staging of Kidney Disease* + -----+ --------+ +| GFR (mL/min/1.73 m2) ?| With Kidney Damage ?| ?Without Kidney Damage+ +------- +---- --+| ?>90 ?| ?Stage one ?| ? Normal ?+ ------+ ---------+--------- +| ?60-89 ?| ?Stage two ?| ? Decreased GFR ? + -----+ --------+ +| ?30-59 ?| ?Stage three ?| ? Stage three ? + -----+ --------+ +| ?15-29 ?| ?Stage four ? | ? Stage four ?+ ------+ ---------+--------- +| ?<15 (or dialysis) ? ?| ?Stage five ? | ? Stage five ?+ ------+ ---------+--------- + *Each stage assumes the associated GFR level has been in effect for at least three months. ?Stages 1 to 5, with or without kidney disease, indicate chronic kidney disease. Notes: Determination of stages one and two (with eGFR >59mL/min/1.73 m2) requires estimation of kidney damage for at least three months as defined by structural or functional abnormalities of the kidney, manifested by either:Pathological abnormalities or Markers of kidney damage (including abnormalities in the composition of the blood or urine or abnormalities in imaging tests). Lab Interpretation Abnormal (test code = 44194-1) [facility] GLUCOSE (AUTOMATED)2021-11-28 01:09:04 Test Item Value Reference Range Interpretation Comments POCT GLU (test code = 2875230066) 106 mg/dL 70-110 Lab Interpretation (test code = Normal 45684-7) [facility] GLUCOSE (AUTOMATED)2021-11-27 21:56:17 Test Item Value Reference Range Interpretation Comments POCT GLU (test code = 8550500680) 99 mg/dL 70-110 Lab Interpretation (test code = Normal 66030-3) [facility] METABOLIC PANEL (NA, K, CL, CO2, GLUCOSE, BUN, CREATININE, CA)2021-11-27 18:47:19 Test Item Value Reference Range Interpretation Comments NA (test code = 140 mmol/L 135-145 2748952864) K (test code = 4.1 mmol/L 3.5-5.0 1012038559) CL (test code = 110 mmol/L 98-108 H 9216966425) CO2 TOTAL (test code = 25 mmol/L 23-31 1158901489) AGAP (test code = 2-16 3810750671) BUN (test code = 63 mg/dL 7-23 H 6614055104) GLUCOSE (test code = 99 mg/dL 70-110 1084031433) CREATININE (test code = 1.30 mg/dL 0.50-1.04 H 4250353736) CALCIUM (test code = 9.2 mg/dL 8.6-10.6 8936597436) eGFR (test code = mL/min/1.73m2 3520395336) ZAC (test code = ZAC) Association of Glomerular Filtration Rate (GFR) and Staging of Kidney Disease* + --+ --+ ------+| GFR (mL/min/1.73 m2) ?| With Kidney Damage ?| ?Without Kidney Damage+ --------+ --------+ +| ?>90 ?| ?Stage one ?| ? Normal ?+ ---+ ---+ -------+| ?60-89 ?| ?Stage two ?| ? Decreased GFR ? + --+ --+ ------+| ?30-59 ?| ?Stage three ?| ? Stage three ? + --+ --+ ------+| ?15-29 ?| ?Stage four ? | ? Stage four ?+ ---+ ---+ -------+| ?<15 (or dialysis) ? ?| ?Stage five ? | ? Stage five ?+ ---+ ---+ -------+ *Each stage assumes the associated GFR level has been in effect for at least three months. ?Stages 1 to 5, with or without kidney disease, indicate chronic kidney disease. Notes: Determination of stages one and two (with eGFR >59mL/min/1.73 m2) requires estimation of kidney damage for at least three months as defined by structural or functional abnormalities of the kidney, manifested by either:Pathological abnormalities or Markers of kidney damage (including abnormalities in the composition of the blood or urine or abnormalities in imaging tests). Lab Interpretation Abnormal (test code = 45990-7) [facility] WITHOUT [id number] 18:32:44 Test Item Value Reference Range Interpretation Comments WBC (test code = 6690-2) See_Comment [A utomated message] The system [employer] generated this result transmit wei reference range : 4.30 - 11.10 10*3/?L. The reference range was not used to interpret this result as normal/abnormal . RBC (test code = 789-8) See_Comment L [Au tomated message] The system [employer] generated this result transmit wei reference range : 3.93 - 5.25 10* 6/?L. The reference r mary lou was not used to interpret this result as normal/abnormal . HGB (test code = 718-7) 8.7 g/dL 11.6-15.0 L HCT (test code = 4544-3) 27.2 % 35.7-45.2 L MCH (test code = 785-6) 28.7 pg 25.9-32.8 MCV (test code = 787-2) 89.8 fL 80.6-95.5 MCHC (test code = 786-4) 32.0 g/dL 31.6-35.1 PLT (test code = 777-3) See_Comment [Au tomated message] The system [employer] generated this result transmit wei reference range : 166 - 358 10*3/?L. The reference range was not used to interpret this result as normal/abnormal . MPV (test code = 12.0 fL 9.5-12.9 54200-1) RDW-CV (test code = 13.7 % 12.0-15.5 788-0) RDW-SD (test code = 45.1 fL 39.0-49.9 37090-1) NRBC x10^3 (test code = <0.01 See_Comment [Au tomated message] 3507326178) The system [employer] generated this result transmit wei reference range : 10*3/?L. The reference range was not used to interpret this result as normal/abnormal . NRBC/100 WBC (test code See_Comment [Au tomated message] = 3610169037) The system [facility] generated this result transmit wei reference range : 0.0 - 10.0 /100 WBC s. The reference r mary lou was not used to interpret this result as normal/abnormal . IPF % (test code = 6703967748) Lab Interpretation (test Abnormal code = 02970-9) [facility] [id number] 18:31:43 Test Item Value Reference Range Interpretation Comments LACTIC ACID (test code = 1.13 mmol/L 0.50-2.20 1993516609) Lab Interpretation (test code = Normal 17535-6) [facility] GLUCOSE (AUTOMATED)2021-11-27 18:09:20 Test Item Value Reference Range Interpretation Comments POCT GLU (test code = 7160857111) 100 mg/dL 70-110 Lab Interpretation (test code = Normal 77090-5) [facility] GLUCOSE (AUTOMATED)2021-11-27 13:57:20 Test Item Value Reference Range Interpretation Comments POCT GLU (test code = 6129672008) 101 mg/dL 70-110 Lab Interpretation (test code = Normal 06026-2) [facility] GLUCOSE (AUTOMATED)2021-11-27 00:55:58 Test Item Value Reference Range Interpretation Comments POCT GLU (test code = 5988475471) 120 mg/dL 70-110 H Lab Interpretation (test code = Abnormal 54728-2) [facility] [id number] 00:42:10 Test Item Value Reference Interpretation Comments Range TROPONIN I (test 0.063 ng/mL See_Comment H [Automated code = 5465375057) message] The system which generated this result transmitted reference range : <=0.034. The reference range was not used to interpret this result as normal/abnormal . ZAC (test code = Reference (Normal) ZAC) Range (defined by the 99th percentile reference limit): <= 0.034 ng/mL Note: Cardiac troponin begins to rise 3-4 hours after the onset of ischemia. Repeat in 4-6 hours if the sample was drawn within 3-4 hours of the onset of the symptom and found normal. Diagnosis of myocardial injury is made with acute changes in cTn concentrations with at least one serial sample above the 99th percentile upper reference limit (URL), taken together with the patient's clinical presentation. Biotin has been reported to cause a negative bias, interpret results relative to patient's use of biotin. Lab Interpretation Abnormal (test code = 46941-2) [facility] [id number] 21:30:54 Test Item Value Reference Interpretation Comments Range TROPONIN I (test 0.068 ng/mL See_Comment H [Automated code = 2801855782) message] The system which generated this result transmitted reference range : <=0.034. The reference range was not used to interpret this result as normal/abnormal . ZAC (test code = Reference (Normal) ZAC) Range (defined by the 99th percentile reference limit): <= 0.034 ng/mL Note: Cardiac troponin begins to rise 3-4 hours after the onset of ischemia. Repeat in 4-6 hours if the sample was drawn within 3-4 hours of the onset of the symptom and found normal. Diagnosis of myocardial injury is made with acute changes in cTn concentrations with at least one serial sample above the 99th percentile upper reference limit (URL), taken together with the patient's clinical presentation. Biotin has been reported to cause a negative bias, interpret results relative to patient's use of biotin. Lab Interpretation Abnormal (test code = 27583-9) [facility]21-[facility]-26 21:14:53 Test Item Value Reference Range Interpretation Comments POCT GLU (test code = 1670313807) 123 mg/dL 70-110 H Lab Interpretation (test code = Abnormal 92576-6) [facility] METABOLIC PANEL (NA, K, CL, CO2, GLUCOSE, BUN, CREATININE, CA)2021-11-26 19:43:53 Test Item Value Reference Range Interpretation Comments NA (test code = 138 mmol/L 135-145 8450129431) K (test code = 4.6 mmol/L 3.5-5.0 9341367912) CL (test code = 109 mmol/L 98-108 H 3812792501) CO2 TOTAL (test code = 23 mmol/L 23-31 7105271182) AGAP (test code = 2-16 5715836118) BUN (test code = 54 mg/dL 7-23 H 3377410103) GLUCOSE (test code = 109 mg/dL 70-110 5097681411) CREATININE (test code = 1.61 mg/dL 0.50-1.04 H 4452970193) CALCIUM (test code = 9.2 mg/dL 8.6-10.6 9662605963) eGFR (test code = mL/min/1.73m2 1016082767) ZAC (test code = ZAC) Association of Glomerular Filtration Rate (GFR) and Staging of Kidney Disease* + --+ --+ ------+| GFR (mL/min/1.73 m2) ?| With Kidney Damage ?| ?Without Kidney Damage+ --------+ --------+ +| ?>90 ?| ?Stage one ?| ? Normal ?+ ---+ ---+ -------+| ?60-89 ?| ?Stage two ?| ? Decreased GFR ? + --+ --+ ------+| ?30-59 ?| ?Stage three ?| ? Stage three ? + --+ --+ ------+| ?15-29 ?| ?Stage four ? | ? Stage four ?+ ---+ ---+ -------+| ?<15 (or dialysis) ? ?| ?Stage five ? | ? Stage five ?+ ---+ ---+ -------+ *Each stage assumes the associated GFR level has been in effect for at least three months. ?Stages 1 to 5, with or without kidney disease, indicate chronic kidney disease. Notes: Determination of stages one and two (with eGFR >59mL/min/1.73 m2) requires estimation of kidney damage for at least three months as defined by structural or functional abnormalities of the kidney, manifested by either:Pathological abnormalities or Markers of kidney damage (including abnormalities in the composition of the blood or urine or abnormalities in imaging tests). Lab Interpretation Abnormal (test code = 87413-6) [facility]2021-11-26 19:30:16 Test Item Value Reference Range Interpretation Comments LVOT stroke volume (test 68.10 cm3 code = 9017666395) EF (HM) (test code = 16.00 % 0585065107) EF(Teich) (test code = 56.00 % 7146191238) LVIDD (test code = 4.60 cm 2241117175) LVIDS (test code = 3.30 cm 0433780935) IVS (test code = 1.40 cm 2834881024) LVPWD (test code = 1.29 cm 9748115693) LVOT diameter (test code 2.00 cm = 5697420136) FS (test code = 29 % 3341812114) MV Peak E Ramu (test code 71.2 cm/s = 2500815359) MV Peak A Ramu (test code 125.0 cm/s = 5881426863) E/A ratio (test code = ratio 8703894933) E wave decelartion time 0.08 s (test code = 8403706509) LA volume (BP) (test code 60.3 mL = 3903843755) LVOT peak ramu (test code 174.0 cm/s = 0917723232) LVOT mn grad (test code = mmHg 5556637184) ED Current (HM) (test 60.00 % code = 7039088973) ED Default (HM) (test 60.00 % code = 7390336364) SV (HM) (test code = 30.00 mL 7925820442) LA size (test code = 3.5 cm 8352885631) LAV(MOD-sp2) (test code = 67.50 mL 9276192481) LAV(MOD-sp4) (test code = 40.80 mL 4974693941) Aortic valve mean 137.9 cm/s velocity (test code = 8181814746) Ao peak ramu (test code = 222.9 cm/s 9688088863) Ao VTI (test code = 25.1 cm 1870978251) AV LVOT peak gradient mmHg (test code = 8973952950) LVOT peak VTI (test code 21.7 cm = 8534981581) AV area by cont VTI (test 2.7 cm2 code = 9133190972) AV area peak ramu (test 2.5 cm2 code = 1576157896) LV V1 mean (test code = 114.00 cm/s 8900994127) Ao max PG (test code = 19.90 mm[Hg] 2988081302) MV stenosis pressure 1/2 22.0 ms time (test code = 1789818647) MV dec slope (test code = 936.00 cm/s2 8888057954) Ao root annulus (test 3.1 cm code = 3346751777) Ao root diam (test code = 3.10 cm 1157964498) AV peak gradient (test mmHg code = 0962854126) AV valve area (test code 2.70 cm2 = 2418386516) AV mean gradient (test mmHg code = 1803864425) Aortic root (test code = 3.1 cm 9996953865) PW (test code = 1.29 cm 0.6-1.6 3614960006) EF - 2D (test code = 56.00 % 12489461) Interventricular Septum 1.40 cm Diastolic Thickness by 2D (test code = 7484766) Radiology Study observation (narrative) (test code = 38137-1) ZAC (test code = ZAC) ?Left?Ventricle: Left ventricle is normal in size and function. LV concentric remodelling with RWT 0.57, LV mass 243 g, LV mass index 95 g/m2. No LVC thrombus. Hyperdynamic systolic function with a visually estimated EF of greater than 65%. There is impaired relaxation. ?Right?Ventricle: Right ventricle is normal in size and function. Normal wall thickness. ?IVC/SVC: IVC diameter is less than or equal to 21 mm and decreases greater than 50% during inspiration; therefore the estimated right atrial pressure is normal (~0-5 mmHg). Leonidas Ashby [facility] Weight BSA (Calculated - sq m) BP Pulse 5' 4" (1.626 m) 322 lb (146.1 kg) 2.57 sq meters 145/99 103 [facility] + Lactic [id number] 19:19:19 Test Item Value Reference Range Interpretation Comments PH (test code = 2) 7.35-7.45 PCO2 (test code = See_Comment L [Automat ed 8850466703) message] The sy stem which generated this result transmitted reference range : 35 - 45 mmHg. The reference range was not used to interpret this result as normal/abnormal . PO2 (test code = See_Comment H [Automated 7645982455) message] The sy stem which generated this result transmitted reference range : 80 - 100 mmHg. The reference range was not used to interpret this result as normal/abnormal . HCO3 (test code = See_Comment L [Automate d 7264511611) message] The sy stem which generated this result transmitted reference range : 22 - 26 mEq/L. The reference range was not used to interpret this result as normal/abnormal . BE (test code = See_Comment L [Automated 1699274413) message] The sy stem which generated this result transmitted reference range : -3.0 - 3.0 mEq/ L. The reference r mary lou was not used to interpret this result as normal/abnormal . THB (test code = 12.2 g/dL 12.0-16.0 6871726142) %O2HB (test code = 97.8 % 94.0-99.0 6255192310) %COHB ART (test code = 0.2 % 0.0-1.5 1592069494) %METHB ART (test code = 0.3 % 0.4-1.5 L 6816891405) VOL%O2 ART (test code = 17.0 % 15.0-23.0 7311514309) NA (test code = 136 mmol/L 135-145 9629642712) K+ (test code = 4.3 mmol/L 3.5-5.0 5080284914) AC CA IONZ (test code = 5.10 mg/dL 4.50-5.30 1414369503) GLUCOSE (test code = 114 mg/dL 70-110 H 8892650255) LACTIC ACID (test code 1.01 mmol/L 0.50-2.20 = 0438124526) Lab Interpretation Abnormal (test code = 20814-0) [facility] GLUCOSE (AUTOMATED)2021-11-26 16:42:33 Test Item Value Reference Range Interpretation Comments POCT GLU (test code = 2733563822) 116 mg/dL 70-110 H Lab Interpretation (test code = Abnormal 47772-5) [facility] GLUCOSE (AUTOMATED)2021-11-26 14:25:25 Test Item Value Reference Range Interpretation Comments POCT GLU (test code = 6998111116) 109 mg/dL 70-110 Lab Interpretation (test code = Normal 47407-7) [facility] [id number] 09:20:10 Test Item Value Reference Interpretation Comments Range TROPONIN I (test 0.041 ng/mL See_Comment H [Automated code = 8822775737) message] The system which generated this result transmitted reference range : <=0.034. The reference range was not used to interpret this result as normal/abnormal . ZAC (test code = Reference (Normal) ZAC) Range (defined by the 99th percentile reference limit): <= 0.034 ng/mL Note: Cardiac troponin begins to rise 3-4 hours after the onset of ischemia. Repeat in 4-6 hours if the sample was drawn within 3-4 hours of the onset of the symptom and found normal. Diagnosis of myocardial injury is made with acute changes in cTn concentrations with at least one serial sample above the 99th percentile upper reference limit (URL), taken together with the patient's clinical presentation. Biotin has been reported to cause a negative bias, interpret results relative to patient's use of biotin. Lab Interpretation Abnormal (test code = 25299-5) [facility] (NA, K, CL, CO2, GLUCOSE, BUN, CREATININE, CA)2021-11-26 09:07:09 Test Item Value Reference Range Interpretation Comments NA (test code = 139 mmol/L 135-145 7832426300) K (test code = 4.8 mmol/L 3.5-5.0 9840705732) CL (test code = 109 mmol/L 98-108 H 0063373853) CO2 TOTAL (test code = 23 mmol/L 23-31 9952448506) AGAP (test code = 2-16 5581524516) BUN (test code = 42 mg/dL 7-23 H 5063836864) GLUCOSE (test code = 113 mg/dL 70-110 H 8228804131) CREATININE (test code = 1.70 mg/dL 0.50-1.04 H 9844021064) CALCIUM (test code = 9.4 mg/dL 8.6-10.6 5943953339) eGFR (test code = mL/min/1.73m2 2943298327) ZAC (test code = ZAC) Association of Glomerular Filtration Rate (GFR) and Staging of Kidney Disease* + --+ --+ ------+| GFR (mL/min/1.73 m2) ?| With Kidney Damage ?| ?Without Kidney Damage+ --------+ --------+ +| ?>90 ?| ?Stage one ?| ? Normal ?+ ---+ ---+ -------+| ?60-89 ?| ?Stage two ?| ? Decreased GFR ? + --+ --+ ------+| ?30-59 ?| ?Stage three ?| ? Stage three ? + --+ --+ ------+| ?15-29 ?| ?Stage four ? | ? Stage four ?+ ---+ ---+ -------+| ?<15 (or dialysis) ? ?| ?Stage five ? | ? Stage five ?+ ---+ ---+ -------+ *Each stage assumes the associated GFR level has been in effect for at least three months. ?Stages 1 to 5, with or without kidney disease, indicate chronic kidney disease. Notes: Determination of stages one and two (with eGFR >59mL/min/1.73 m2) requires estimation of kidney damage for at least three months as defined by structural or functional abnormalities of the kidney, manifested by either:Pathological abnormalities or Markers of kidney damage (including abnormalities in the composition of the blood or urine or abnormalities in imaging tests). Lab Interpretation Abnormal (test code = 16034-4) [facility] 09:07:09 Test Item Value Reference Range Interpretation Comments MAGNESIUM (test code = 7901828971) 2.2 mg/dL 1.7-2.4 Lab Interpretation (test code = Normal 68148-9) [facility]22[facility] 09:07:09 Test Item Value Reference Range Interpretation Comments PHOSPHORUS (test code = 1800671994) 7.4 mg/dL 2.5-5.0 H Lab Interpretation (test code = Abnormal 12025-0) [facility] + Lactic [id number] 08:37:00 Test Item Value Reference Range Interpretation Comments PH (test code = 2) 7.35-7.45 PCO2 (test code = See_Comment [Automat ed 2488164528) message] The sy stem which generated this result transmitted reference range : 35 - 45 mmHg. The reference range was not used to interpret this result as normal/abnormal . PO2 (test code = See_Comment H [Automated 0904700942) message] The sy stem which generated this result transmitted reference range : 80 - 100 mmHg. The reference range was not used to interpret this result as normal/abnormal . HCO3 (test code = See_Comment [Automate d 5053079162) message] The sy stem which generated this result transmitted reference range : 22 - 26 mEq/L. The reference range was not used to interpret this result as normal/abnormal . BE (test code = See_Comment [Automated 3997523004) message] The sy stem which generated this result transmitted reference range : -3.0 - 3.0 mEq/ L. The reference r mary lou was not used to interpret this result as normal/abnormal . THB (test code = 10.6 g/dL 12.0-16.0 L 2380071607) %O2HB (test code = 96.9 % 94.0-99.0 0298047872) %COHB ART (test code = 0.3 % 0.0-1.5 3229898939) %METHB ART (test code = 0.3 % 0.4-1.5 L 3191935193) VOL%O2 ART (test code = 14.6 % 15.0-23.0 L 3357412164) NA (test code = 135 mmol/L 135-145 9017666791) K+ (test code = 4.5 mmol/L 3.5-5.0 3241570958) AC CA IONZ (test code = 5.10 mg/dL 4.50-5.30 7374501565) GLUCOSE (test code = 116 mg/dL 70-110 H 3004341849) LACTIC ACID (test code 0.97 mmol/L 0.50-2.20 = 9597739727) Lab Interpretation Abnormal (test code = 25241-0) [facility] WITH [id number] 08:33:45 Test Item Value Reference Range Interpretation Comments WBC (test code = See_Comment H [Automated 6690-2) message] The system which generated this result transmit wei reference range : 4.30 - 11.10 10*3/?L. The reference range was not used to interpret this result as normal/abnormal . RBC (test code = See_Comment L [Automated 789-8) message] The system which generated this result transmit wei reference range : 3.93 - 5.25 10*6/?L. The reference range was not used to interpret this result as normal/abnormal . HGB (test code = 10.4 g/dL 11.6-15.0 L 718-7) HCT (test code = 32.2 % 35.7-45.2 L 4544-3) MCV (test code = 89.0 fL 80.6-95.5 787-2) MCH (test code = 28.7 pg 25.9-32.8 785-6) MCHC (test code = 32.3 g/dL 31.6-35.1 786-4) RDW-SD (test code = 45.3 fL 39.0-49.9 10255-4) RDW-CV (test code = 14.0 % 12.0-15.5 788-0) PLT (test code = See_Comment [Automated 777-3) message] The system which generated this result transmit wei reference range : 166 - 358 10*3/ ?L. The reference range was not u sed to interpret th is result as normal/abnormal . MPV (test code = 11.9 fL 9.5-12.9 71463-9) NRBC/100 WBC (test See_Comment [Automat ed code = 8778049288) message] The system which generated this result transmit wei reference range : 0.0 - 10.0 /100 WBCs. The reference range was not used to interpret this result as normal/abnormal . NRBC x10^3 (test code <0.01 See_Comment [Auto mated = 7003888506) message] The system which generated this result transmit wei reference range : 10*3/?L. The reference range was not used to interpret this result as normal/abnormal . GRAN MAT (NEUT) % 82.5 % (test code = 770-8) IMM GRAN % (test code 0.70 % = 2148886509) LYMPH % (test code = 8.6 % 736-9) MONO % (test code = 7.9 % 5905-5) EOS % (test code = 0.1 % 713-8) BASO % (test code = 0.2 % 706-2) GRAN MAT x10^3(ANC) 12.71 10*3/uL 1.88-7.09 H (test code = 1600579103) IMM GRAN x10^3 (test 0.11 10*3/uL 0.00-0.06 H code = 2523821659) LYMPH x10^3 (test code 1.33 10*3/uL 1.32-3.29 = 731-0) MONO x10^3 (test code 1.22 10*3/uL 0.33-0.92 H = 742-7) EOS x10^3 (test code = <0.03 0.03-0.39 L 711-2) BASO x10^3 (test code 0.03 10*3/uL 0.01-0.07 = 704-7) Lab Interpretation Abnormal (test code = 46150-4) [facility] + Lactic [id number] 02:49:39 Test Item Value Reference Range Interpretation Comments PH (test code = 2) 7.35-7.45 PCO2 (test code = See_Comment [Automat ed 2034370189) message] The sy stem which generated this result transmitted reference range : 35 - 45 mmHg. The reference range was not used to interpret this result as normal/abnormal . PO2 (test code = See_Comment H [Automated 8937678179) message] The sy stem which generated this result transmitted reference range : 80 - 100 mmHg. The reference range was not used to interpret this result as normal/abnormal . HCO3 (test code = See_Comment [Automate d 1305058940) message] The sy stem which generated this result transmitted reference range : 22 - 26 mEq/L. The reference range was not used to interpret this result as normal/abnormal . BE (test code = See_Comment [Automated 0619624764) message] The sy stem which generated this result transmitted reference range : -3.0 - 3.0 mEq/ L. The reference r mary lou was not used to interpret this result as normal/abnormal . THB (test code = 12.2 g/dL 12.0-16.0 3358669374) %O2HB (test code = 97.0 % 94.0-99.0 0383432477) %COHB ART (test code = 0.3 % 0.0-1.5 4088116996) %METHB ART (test code = 0.3 % 0.4-1.5 L 2347266317) VOL%O2 ART (test code = 16.8 % 15.0-23.0 7769495595) NA (test code = 135 mmol/L 135-145 4541158887) K+ (test code = 4.6 mmol/L 3.5-5.0 7708447697) AC CA IONZ (test code = 5.00 mg/dL 4.50-5.30 4295994723) GLUCOSE (test code = 148 mg/dL 70-110 H 7929770313) LACTIC ACID (test code 1.15 mmol/L 0.50-2.20 = 6897431577) Lab Interpretation Abnormal (test code = 67452-0) [facility] GLUCOSE (AUTOMATED)2021-11-26 02:08:14 Test Item Value Reference Range Interpretation Comments POCT GLU (test code = 1254993959) 144 mg/dL 70-110 H Lab Interpretation (test code = Abnormal 46330-0) [facility] GLUCOSE (AUTOMATED)2021-11-25 22:53:08 Test Item Value Reference Range Interpretation Comments POCT GLU (test code = 4613250893) 164 mg/dL 70-110 H Lab Interpretation (test code = Abnormal 40412-5) [facility]ENCEPHALITIS PANEL BY [id number] 20:43:10 Test Item Value Reference Range Interpretation Comments Escherichia coli K1 Negative Negative, (test code = 42427-2) Indeterminate, See Comment Haemophilus influenzae Negative Negative, (test code = 81438-6) Indeterminate, See Comment Listeria monocytogenes Negative Negative, (test code = 31118-6) Indeterminate, See Comment Neisseria meningitidis Negative Negative, (encapsulated) (test Indeterminate, code = 84792-7) See Comment Streptococcus agalactiae Negative Negative, (test code = 90771-9) Indeterminate, See Comment Streptococcus pneumoniae Negative Negative, (test code = 55866-4) Indeterminate, See Comment Cytomegalovirus (test Negative Negative, code = 71740-0) Indeterminate, See Comment Enterovirus (test code = Negative Negative, 37477-2) Indeterminate, See Comment Herpes simplex virus 1 Negative Negative, (test code = 21659-1) Indeterminate, See Comment Herpes simplex virus 2 Negative Negative, (test code = 08965-1) Indeterminate, See Comment Human herpesvirus 6 Negative Negative, (test code = 11871-9) Indeterminate, See Comment Human parechovirus (test Negative Negative, code = 79336-9) Indeterminate, See Comment Varicella zoster virus Negative Negative, (test code = 86502-5) Indeterminate, See Comment Cryptococcus Negative Negative, neoformans/gattii (test Indeterminate, code = 00176-9) See Comment ZAC (test code = ZAC) Negative:A negative result does not rule-out infection. ?This assay does not test for all potential infectious agents. Positive:A positive test result does not necessarily indicate the presence of viable organism. ? Lab Interpretation (test Normal code = 37388-2) [facility] [id number] 20:19:58 Test Item Value Reference Range Interpretation Comments GLU CSF (test code = 66 mg/dL 50-80 6680131279) UNSPUN BODY FLUID Colorless COLOR (test code = 2368532815) UNSPUN BODY FLUID Clear CLARITY (test code = 8307879973) SPUN BODY FLUID COLOR Colorless (test code = 7555887564) SPUN BODY FLUID Clear CLARITY (test code = 8658352631) Sediment (test code = The se diment volume is 4023271578) <0.01 mLs of th e total fluid volume of 3.75mls and its color is red. [facility] [id number] 20:19:53 Test Item Value Reference Range Interpretation Comments BF SEGS% (test code = 47130-2) 12 % 0-7 H BF LYMPHS% (test code = 70827-1) 71 % 28-96 BF MACROPHAGE% (test code = 17 % 16-56 55064-1) BF #CELLS CNTD (test code = cells/uL 5831445194) Lab Interpretation (test code = Abnormal 97744-5) [facility] FLUID DIRECT [id number] 20:19:53 Test Item Value Reference Range Interpretation Comments BF COLOR (test code = Clear 3416660938) BF WBC Count (test See_Comment [Automat ed message] The code = 4088413363) system [facility] generated this result transmit wei reference range : 0 - 5 /?L. The reference r mary lou was not used to interpr et this result as susan l/abnormal. BF RBC Count (test See_Comment [Automat ed message] The code = 5276044064) system [facility] generated this result transmit wei reference range : /?L. The reference range was not used to interpr et this result as susan l/abnormal. [id number] 20:19:43 Test Item Value Reference Range Interpretation Comments T. PRO CSF (test code 43.0 mg/dL 15.0-45.0 = 5265857193) UNSPUN BODY FLUID Colorless COLOR (test code = 7275012463) UNSPUN BODY FLUID Clear CLARITY (test code = 2894693864) SPUN BODY FLUID COLOR Colorless (test code = 3462315489) SPUN BODY FLUID Clear CLARITY (test code = 6916592853) Sediment (test code = The se diment volume 8053281278) is <0.01 mLs of the total fluid vol ume of 3.75mls and its color is red. [facility] GLUCOSE (AUTOMATED)2021-11-25 16:14:14 Test Item Value Reference Range Interpretation Comments POCT GLU (test code = 1894392126) 129 mg/dL 70-110 H Lab Interpretation (test code = Abnormal 32745-7) [facility] LUPUS ANTICOAGULANT REFLEXIVE PANEL [id number] 15:52:42 Test Item Value Reference Range Interpretation Comments Miscellaneous Test (test See scanned report code = 6743866414) Performing Lab (test code ARUP = 5587130564) [facility] GLUCOSE (AUTOMATED)2021-11-25 12:47:35 Test Item Value Reference Range Interpretation Comments POCT GLU (test code = 5308366082) 100 mg/dL 70-110 Lab Interpretation (test code = Normal 85094-1) [facility] [id number] 01:27:42 Test Item Value Reference Range Interpretation Comments VerifyNow Aspirin See Comment ARU Test (test code = 2397646992) ZAC (test code = < 550 ARU - Evidence of ZAC) platelet dysfunction due to aspirin>= 550 ARU - No evidence of aspirin-induced platelet dysfunction The performance of VerifyNow Aspirin test on patients with acquired non-drug induced platelet abnormalities is not known. Patients who have been treated with Glycoprotein IIb/IIIa inhibitor drugs should not be tested until platelet function has recovered. The recovery period after drug administration is discontinued is approximately 14 days for abciximab (ReoPro) and up to 48 hours for eptifibatide (Integrilin) and tirofiban (Aggrastat). The time to recovery of platelet functions varies among individuals and is longer for patients with renal dysfunction. Patient with low platelet counts may not give consistent results. Results should be interpreted in conjunction with other laboratory and clinical data available to the clinician. [facility] GLUCOSE (AUTOMATED)2021-11-25 01:07:33 Test Item Value Reference Range Interpretation Comments POCT GLU (test code = 9214448582) 123 mg/dL 70-110 H Lab Interpretation (test code = Abnormal 21680-0) [facility] GLUCOSE (AUTOMATED)2021-11-24 21:38:03 Test Item Value Reference Range Interpretation Comments POCT GLU (test code = 8085559736) 111 mg/dL 70-110 H Lab Interpretation (test code = Abnormal 21370-6) [facility] [id number] 19:44:30 Test Item Value Reference Range Interpretation Comments BERNICE AM (test code = 18.5 ug/dL 4.5-23.0 9274297173) ZAC (test code = ZAC) Biotin has been reported to cause a positive bias, interpret results relative to patient's use of biotin. Lab Interpretation (test Normal code = 85825-5) [facility] GLUCOSE (AUTOMATED)2021-11-24 01:25:21 Test Item Value Reference Range Interpretation Comments POCT GLU (test code = 1705682915) 97 mg/dL 70-110 Lab Interpretation (test code = Normal 53168-6) [facility] GLUCOSE (AUTOMATED)2021-11-23 21:52:15 Test Item Value Reference Range Interpretation Comments POCT GLU (test code = 3071210754) 121 mg/dL 70-110 H Lab Interpretation (test code = Abnormal 19385-9) [facility] GLUCOSE (AUTOMATED)2021-11-23 17:39:34 Test Item Value Reference Range Interpretation Comments POCT GLU (test code = 3182476866) 112 mg/dL 70-110 H Lab Interpretation (test code = Abnormal 07722-0) [facility] GLUCOSE (AUTOMATED)2021-11-23 12:40:30 Test Item Value Reference Range Interpretation Comments POCT GLU (test code = 0945914910) 130 mg/dL 70-110 H Lab Interpretation (test code = Abnormal 96760-2) [facility] (NA, K, CL, CO2, GLUCOSE, BUN, CREATININE, CA)2021-11-23 09:06:24 Test Item Value Reference Range Interpretation Comments NA (test code = 139 mmol/L 135-145 9519733212) K (test code = 4.0 mmol/L 3.5-5.0 2925322865) CL (test code = 108 mmol/L 98-108 6272420094) CO2 TOTAL (test code = 26 mmol/L 23-31 8739531584) AGAP (test code = 2-16 8669249963) BUN (test code = 17 mg/dL 7-23 3871915564) GLUCOSE (test code = 118 mg/dL 70-110 H 4206559376) CREATININE (test code = 0.66 mg/dL 0.50-1.04 4503072954) CALCIUM (test code = 9.0 mg/dL 8.6-10.6 7926668108) eGFR (test code = mL/min/1.73m2 2741351726) ZAC (test code = ZAC) Association of Glomerular Filtration Rate (GFR) and Staging of Kidney Disease* + --+ --+ ------+| GFR (mL/min/1.73 m2) ?| With Kidney Damage ?| ?Without Kidney Damage+ --------+ --------+ +| ?>90 ?| ?Stage one ?| ? Normal ?+ ---+ ---+ -------+| ?60-89 ?| ?Stage two ?| ? Decreased GFR ? + --+ --+ ------+| ?30-59 ?| ?Stage three ?| ? Stage three ? + --+ --+ ------+| ?15-29 ?| ?Stage four ? | ? Stage four ?+ ---+ ---+ -------+| ?<15 (or dialysis) ? ?| ?Stage five ? | ? Stage five ?+ ---+ ---+ -------+ *Each stage assumes the associated GFR level has been in effect for at least three months. ?Stages 1 to 5, with or without kidney disease, indicate chronic kidney disease. Notes: Determination of stages one and two (with eGFR >59mL/min/1.73 m2) requires estimation of kidney damage for at least three months as defined by structural or functional abnormalities of the kidney, manifested by either:Pathological abnormalities or Markers of kidney damage (including abnormalities in the composition of the blood or urine or abnormalities in imaging tests). Lab Interpretation Abnormal (test code = 73665-0) [facility] WITHOUT [id number] 08:43:23 Test Item Value Reference Range Interpretation Comments WBC (test code = See_Comment [Automated message] The 6690-2) system which nerated this result tra nsmitted reference range : 4.30 - 11.10 10*3/?L. The reference range was not used to interpr et this result as normal/abnormal . RBC (test code = See_Comment [Automated message] The 789-8) system which nerated this result tra nsmitted reference range : 3.93 - 5.25 10*6/?L. T he reference range was not used to interpr et this result as normal/abnormal . HGB (test code = 12.7 g/dL 11.6-15.0 718-7) HCT (test code = 39.6 % 35.7-45.2 4544-3) MCH (test code = 28.3 pg 25.9-32.8 785-6) MCV (test code = 88.4 fL 80.6-95.5 787-2) MCHC (test code = 32.1 g/dL 31.6-35.1 786-4) PLT (test code = See_Comment [Automated message] The 777-3) system which nerated this result tra nsmitted reference range : 166 - 358 10*3/?L. Th e reference range was not used to interpr et this result as normal/abnormal . MPV (test code = 11.8 fL 9.5-12.9 82700-3) RDW-CV (test code = 13.9 % 12.0-15.5 788-0) RDW-SD (test code = 44.8 fL 39.0-49.9 30736-5) NRBC x10^3 (test <0.01 See_Comment [Automated message] The code = 5452063751) system [facility] generated this result tra nsmitted reference range : 10*3/?L. The reference r mary lou was not used to int erpret this result as normal/abnormal . NRBC/100 WBC (test See_Comment [Automat ed message] The code = 5325229205) system [facility] generated this result tra nsmitted reference range : 0.0 - 10.0 /100 WBCs. The reference range was not used to interpr et this result as normal/abnormal . IPF % (test code = 9472675441) [facility] GLUCOSE (AUTOMATED)2021-11-23 01:10:46 Test Item Value Reference Range Interpretation Comments POCT GLU (test code = 8163467049) 105 mg/dL 70-110 Lab Interpretation (test code = Normal 28037-4) [facility] GLUCOSE (AUTOMATED)2021-11-22 21:10:04 Test Item Value Reference Range Interpretation Comments POCT GLU (test code = 4053982183) 100 mg/dL 70-110 Lab Interpretation (test code = Normal 53523-9) [facility] GLUCOSE (AUTOMATED)2021-11-22 18:02:55 Test Item Value Reference Range Interpretation Comments POCT GLU (test code = 2955487975) 85 mg/dL 70-110 Lab Interpretation (test code = Normal 55843-5) [facility] GLUCOSE (AUTOMATED)2021-11-22 14:10:13 Test Item Value Reference Range Interpretation Comments POCT GLU (test code = 3676956347) 92 mg/dL 70-110 Lab Interpretation (test code = Normal 19745-6) [facility] METABOLIC PANEL (NA, K, CL, CO2, GLUCOSE, BUN, CREATININE, CA)2021-11-22 08:44:37 Test Item Value Reference Range Interpretation Comments NA (test code = 140 mmol/L 135-145 2198059260) K (test code = 4.0 mmol/L 3.5-5.0 4393646458) CL (test code = 111 mmol/L 98-108 H 0827956544) CO2 TOTAL (test code = 24 mmol/L 23-31 5357935213) AGAP (test code = 2-16 8268874584) BUN (test code = 19 mg/dL 7-23 6762188956) GLUCOSE (test code = 113 mg/dL 70-110 H 3939388730) CREATININE (test code = 0.66 mg/dL 0.50-1.04 8217152811) CALCIUM (test code = 9.1 mg/dL 8.6-10.6 1671924333) eGFR (test code = mL/min/1.73m2 1046978269) ZAC (test code = ZAC) Association of Glomerular Filtration Rate (GFR) and Staging of Kidney Disease* + --+ --+ ------+| GFR (mL/min/1.73 m2) ?| With Kidney Damage ?| ?Without Kidney Damage+ --------+ --------+ +| ?>90 ?| ?Stage one ?| ? Normal ?+ ---+ ---+ -------+| ?60-89 ?| ?Stage two ?| ? Decreased GFR ? + --+ --+ ------+| ?30-59 ?| ?Stage three ?| ? Stage three ? + --+ --+ ------+| ?15-29 ?| ?Stage four ? | ? Stage four ?+ ---+ ---+ -------+| ?<15 (or dialysis) ? ?| ?Stage five ? | ? Stage five ?+ ---+ ---+ -------+ *Each stage assumes the associated GFR level has been in effect for at least three months. ?Stages 1 to 5, with or without kidney disease, indicate chronic kidney disease. Notes: Determination of stages one and two (with eGFR >59mL/min/1.73 m2) requires estimation of kidney damage for at least three months as defined by structural or functional abnormalities of the kidney, manifested by either:Pathological abnormalities or Markers of kidney damage (including abnormalities in the composition of the blood or urine or abnormalities in imaging tests). Lab Interpretation Abnormal (test code = 63436-2) [facility] 08:44:37 Test Item Value Reference Range Interpretation Comments MAGNESIUM (test code = 0160020607) 2.0 mg/dL 1.7-2.4 Lab Interpretation (test code = Normal 39538-7) [facility] WITH [id number] 08:37:01 Test Item Value Reference Range Interpretation Comments WBC (test code = See_Comment [Automated 9557-2) message] The sy stem which generated this result transmitted reference range : 4.30 - 11.10 10*3/?L. The reference range was not used to interpret this result as normal/abnormal . RBC (test code = See_Comment [Automated 439-4) message] The sy stem which generated this result transmitted reference range : 3.93 - 5.25 10*6/?L. The reference range was not used to interpret this result as normal/abnormal . HGB (test code = 12.6 g/dL 11.6-15.0 718-7) HCT (test code = 38.7 % 35.7-45.2 4544-3) MCV (test code = 87.8 fL 80.6-95.5 787-2) MCH (test code = 28.6 pg 25.9-32.8 785-6) MCHC (test code = 32.6 g/dL 31.6-35.1 786-4) RDW-SD (test code = 44.5 fL 39.0-49.9 73936-7) RDW-CV (test code = 13.8 % 12.0-15.5 788-0) PLT (test code = See_Comment [Automated 777-3) message] The sy stem which generated this result transmitted reference range : 166 - 358 10*3/ ?L. The reference r mary lou was not used to interpret this result as normal/abnormal . MPV (test code = 11.8 fL 9.5-12.9 04539-0) NRBC/100 WBC (test See_Comment [Automat ed code = 4349008497) message] The system which generated this result transmitted reference range : 0.0 - 10.0 /100 WBCs. The refer ence range was not u sed to interpret th is result as normal/abnormal . NRBC x10^3 (test code <0.01 See_Comment [Auto mated = 6166653591) message] The s ystem which generated this result transmitted reference range : 10*3/?L. The reference range was not used to interpret this result as normal/abnormal . GRAN MAT (NEUT) % 80.1 % (test code = 770-8) IMM GRAN % (test code 0.60 % = 5806768052) LYMPH % (test code = 10.5 % 736-9) MONO % (test code = 7.4 % 5905-5) EOS % (test code = 1.2 % 713-8) BASO % (test code = 0.2 % 706-2) GRAN MAT x10^3(ANC) 7.82 10*3/uL 1.88-7.09 H (test code = 1576984922) IMM GRAN x10^3 (test 0.06 10*3/uL 0.00-0.06 code = 8286274060) LYMPH x10^3 (test code 1.03 10*3/uL 1.32-3.29 L = 731-0) MONO x10^3 (test code 0.72 10*3/uL 0.33-0.92 = 742-7) EOS x10^3 (test code = 0.12 10*3/uL 0.03-0.39 711-2) BASO x10^3 (test code <0.03 0.01-0.07 = 704-7) Lab Interpretation Abnormal (test code = 77661-6) [facility] GLUCOSE (AUTOMATED)2021-11-22 01:41:27 Test Item Value Reference Range Interpretation Comments POCT GLU (test code = 2934723065) 97 mg/dL 70-110 Lab Interpretation (test code = Normal 20617-3) [facility] GLUCOSE (AUTOMATED)2021-11-21 21:35:08 Test Item Value Reference Range Interpretation Comments POCT GLU (test code = 6849743053) 108 mg/dL 70-110 Lab Interpretation (test code = Normal 52062-1) [facility] GLUCOSE (AUTOMATED)2021-11-21 16:41:13 Test Item Value Reference Range Interpretation Comments POCT GLU (test code = 6822000725) 109 mg/dL 70-110 Lab Interpretation (test code = Normal 94986-4) [facility] GLUCOSE (AUTOMATED)2021-11-21 12:46:01 Test Item Value Reference Range Interpretation Comments POCT GLU (test code = 6966090338) 97 mg/dL 70-110 Lab Interpretation (test code = Normal 34465-9) [facility] METABOLIC PANEL (NA, K, CL, CO2, GLUCOSE, BUN, CREATININE, CA)2021-11-21 08:57:19 Test Item Value Reference Range Interpretation Comments NA (test code = 143 mmol/L 135-145 9552402896) K (test code = 3.7 mmol/L 3.5-5.0 1528878295) CL (test code = 111 mmol/L 98-108 H 8607304028) CO2 TOTAL (test code = 24 mmol/L 23-31 7070931385) AGAP (test code = 2-16 0486677727) BUN (test code = 21 mg/dL 7-23 6857464214) GLUCOSE (test code = 108 mg/dL 70-110 7438205565) CREATININE (test code = 0.62 mg/dL 0.50-1.04 0520805562) CALCIUM (test code = 9.0 mg/dL 8.6-10.6 3591969841) eGFR (test code = mL/min/1.73m2 6845251988) ZAC (test code = ZAC) Association of Glomerular Filtration Rate (GFR) and Staging of Kidney Disease* + --+ --+ ------+| GFR (mL/min/1.73 m2) ?| With Kidney Damage ?| ?Without Kidney Damage+ --------+ --------+ +| ?>90 ?| ?Stage one ?| ? Normal ?+ ---+ ---+ -------+| ?60-89 ?| ?Stage two ?| ? Decreased GFR ? + --+ --+ ------+| ?30-59 ?| ?Stage three ?| ? Stage three ? + --+ --+ ------+| ?15-29 ?| ?Stage four ? | ? Stage four ?+ ---+ ---+ -------+| ?<15 (or dialysis) ? ?| ?Stage five ? | ? Stage five ?+ ---+ ---+ -------+ *Each stage assumes the associated GFR level has been in effect for at least three months. ?Stages 1 to 5, with or without kidney disease, indicate chronic kidney disease. Notes: Determination of stages one and two (with eGFR >59mL/min/1.73 m2) requires estimation of kidney damage for at least three months as defined by structural or functional abnormalities of the kidney, manifested by either:Pathological abnormalities or Markers of kidney damage (including abnormalities in the composition of the blood or urine or abnormalities in imaging tests). Lab Interpretation Abnormal (test code = 65818-0) [facility]57:19 Test Item Value Reference Range Interpretation Comments MAGNESIUM (test code = 2438871884) 1.9 mg/dL 1.7-2.4 Lab Interpretation (test code = Normal 77255-0) [facility] WITH [id number] 08:37:15 Test Item Value Reference Range Interpretation Comments WBC (test code = See_Comment [Automated 6690-2) message] The sy stem which generated this result transmitted reference range : 4.30 - 11.10 10*3/?L. The reference range was not used to interpret this result as normal/abnormal . RBC (test code = See_Comment [Automated 789-8) message] The sy stem which generated this result transmitted reference range : 3.93 - 5.25 10*6/?L. The reference range was not used to interpret this result as normal/abnormal . HGB (test code = 12.9 g/dL 11.6-15.0 718-7) HCT (test code = 39.8 % 35.7-45.2 4544-3) MCV (test code = 87.5 fL 80.6-95.5 787-2) MCH (test code = 28.4 pg 25.9-32.8 785-6) MCHC (test code = 32.4 g/dL 31.6-35.1 786-4) RDW-SD (test code = 44.3 fL 39.0-49.9 68756-2) RDW-CV (test code = 13.8 % 12.0-15.5 788-0) PLT (test code = See_Comment [Automated 777-3) message] The sy stem which generated this result transmitted reference range : 166 - 358 10*3/ ?L. The reference r mary lou was not used to interpret this result as normal/abnormal . MPV (test code = 11.6 fL 9.5-12.9 42387-2) NRBC/100 WBC (test See_Comment [Automat ed code = 3259873609) message] The system which generated this result transmitted reference range : 0.0 - 10.0 /100 WBCs. The refer ence range was not u sed to interpret th is result as normal/abnormal . NRBC x10^3 (test code <0.01 See_Comment [Auto mated = 3855492028) message] The s ystem which generated this result transmitted reference range : 10*3/?L. The reference range was not used to interpret this result as normal/abnormal . GRAN MAT (NEUT) % 81.9 % (test code = 770-8) IMM GRAN % (test code 0.40 % = 1724470675) LYMPH % (test code = 10.3 % 736-9) MONO % (test code = 5.7 % 5905-5) EOS % (test code = 1.5 % 713-8) BASO % (test code = 0.2 % 706-2) GRAN MAT x10^3(ANC) 7.93 10*3/uL 1.88-7.09 H (test code = 4961982552) IMM GRAN x10^3 (test 0.04 10*3/uL 0.00-0.06 code = 0301969019) LYMPH x10^3 (test code 1.00 10*3/uL 1.32-3.29 L = 731-0) MONO x10^3 (test code 0.55 10*3/uL 0.33-0.92 = 742-7) EOS x10^3 (test code = 0.15 10*3/uL 0.03-0.39 711-2) BASO x10^3 (test code <0.03 0.01-0.07 = 704-7) Lab Interpretation Abnormal (test code = 18394-8) [facility] GLUCOSE (AUTOMATED)2021-11-21 01:10:54 Test Item Value Reference Range Interpretation Comments POCT GLU (test code = 6712932846) 126 mg/dL 70-110 H Lab Interpretation (test code = Abnormal 42580-8) [facility] GLUCOSE (AUTOMATED)2021-11-20 21:58:45 Test Item Value Reference Range Interpretation Comments POCT GLU (test code = 9160579812) 116 mg/dL 70-110 H Lab Interpretation (test code = Abnormal 07470-1) [facility] GLUCOSE (AUTOMATED)2021-11-20 16:57:49 Test Item Value Reference Range Interpretation Comments POCT GLU (test code = 9136481666) 122 mg/dL 70-110 H Lab Interpretation (test code = Abnormal 49074-9) [facility] GLUCOSE (AUTOMATED)2021-11-20 12:24:48 Test Item Value Reference Range Interpretation Comments POCT GLU (test code = 2294593633) 100 mg/dL 70-110 Lab Interpretation (test code = Normal 01725-2) [facility] 12:03:23 Test Item Value Reference Range Interpretation Comments MAGNESIUM (test code = 4663300976) 2.0 mg/dL 1.7-2.4 Lab Interpretation (test code = Normal 85433-3) [facility] (NA, K, CL, CO2, GLUCOSE, BUN, CREATININE, CA)2021-11-20 12:03:22 Test Item Value Reference Range Interpretation Comments NA (test code = 144 mmol/L 135-145 4877215086) K (test code = 3.8 mmol/L 3.5-5.0 8584063487) CL (test code = 112 mmol/L 98-108 H 1792206224) CO2 TOTAL (test code = 25 mmol/L 23-31 3838155991) AGAP (test code = 2-16 6547497406) BUN (test code = 20 mg/dL 7-23 2641769388) GLUCOSE (test code = 108 mg/dL 70-110 6990507696) CREATININE (test code = 0.74 mg/dL 0.50-1.04 7342499810) CALCIUM (test code = 9.4 mg/dL 8.6-10.6 5702433694) eGFR (test code = mL/min/1.73m2 7490009786) ZAC (test code = ZAC) Association of Glomerular Filtration Rate (GFR) and Staging of Kidney Disease* + --+ --+ ------+| GFR (mL/min/1.73 m2) ?| With Kidney Damage ?| ?Without Kidney Damage+ --------+ --------+ +| ?>90 ?| ?Stage one ?| ? Normal ?+ ---+ ---+ -------+| ?60-89 ?| ?Stage two ?| ? Decreased GFR ? + --+ --+ ------+| ?30-59 ?| ?Stage three ?| ? Stage three ? + --+ --+ ------+| ?15-29 ?| ?Stage four ? | ? Stage four ?+ ---+ ---+ -------+| ?<15 (or dialysis) ? ?| ?Stage five ? | ? Stage five ?+ ---+ ---+ -------+ *Each stage assumes the associated GFR level has been in effect for at least three months. ?Stages 1 to 5, with or without kidney disease, indicate chronic kidney disease. Notes: Determination of stages one and two (with eGFR >59mL/min/1.73 m2) requires estimation of kidney damage for at least three months as defined by structural or functional abnormalities of the kidney, manifested by either:Pathological abnormalities or Markers of kidney damage (including abnormalities in the composition of the blood or urine or abnormalities in imaging tests). Lab Interpretation Abnormal (test code = 96615-6) [facility] WITH [id number] 11:56:43 Test Item Value Reference Range Interpretation Comments WBC (test code = See_Comment [Automated 6290-2) message] The sy stem which generated this result transmitted reference range : 4.30 - 11.10 10*3/?L. The reference range was not used to interpret this result as normal/abnormal . RBC (test code = See_Comment [Automated 649-8) message] The sy stem which generated this result transmitted reference range : 3.93 - 5.25 10*6/?L. The reference range was not used to interpret this result as normal/abnormal . HGB (test code = 13.1 g/dL 11.6-15.0 718-7) HCT (test code = 41.5 % 35.7-45.2 4544-3) MCV (test code = 89.4 fL 80.6-95.5 787-2) MCH (test code = 28.2 pg 25.9-32.8 785-6) MCHC (test code = 31.6 g/dL 31.6-35.1 786-4) RDW-SD (test code = 45.3 fL 39.0-49.9 35025-5) RDW-CV (test code = 13.9 % 12.0-15.5 788-0) PLT (test code = See_Comment [Automated 777-3) message] The sy stem which generated this result transmitted reference range : 166 - 358 10*3/ ?L. The reference r mary lou was not used to interpret this result as normal/abnormal . MPV (test code = 11.6 fL 9.5-12.9 03344-4) NRBC/100 WBC (test See_Comment [Automat ed code = 5600366075) message] The system which generated this result transmitted reference range : 0.0 - 10.0 /100 WBCs. The refer ence range was not u sed to interpret th is result as normal/abnormal . NRBC x10^3 (test code <0.01 See_Comment [Auto mated = 2650541195) message] The s ystem which generated this result transmitted reference range : 10*3/?L. The reference range was not used to interpret this result as normal/abnormal . GRAN MAT (NEUT) % 80.9 % (test code = 770-8) IMM GRAN % (test code 0.40 % = 1813445796) LYMPH % (test code = 11.0 % 736-9) MONO % (test code = 5.5 % 5905-5) EOS % (test code = 1.9 % 713-8) BASO % (test code = 0.3 % 706-2) GRAN MAT x10^3(ANC) 8.43 10*3/uL 1.88-7.09 H (test code = 5616414490) IMM GRAN x10^3 (test 0.04 10*3/uL 0.00-0.06 code = 2576159101) LYMPH x10^3 (test code 1.15 10*3/uL 1.32-3.29 L = 731-0) MONO x10^3 (test code 0.57 10*3/uL 0.33-0.92 = 742-7) EOS x10^3 (test code = 0.20 10*3/uL 0.03-0.39 711-2) BASO x10^3 (test code 0.03 10*3/uL 0.01-0.07 = 704-7) Lab Interpretation Abnormal (test code = 60299-2) [facility] 01:29:34 Test Item Value Reference Range Interpretation Comments POCT GLU (test code = 7142210124) 97 mg/dL 70-110 Lab Interpretation (test code = Normal 61970-2) [facility]PO[facility] [id number] 23:17:11 Test Item Value Reference Interpretation Comments Range TPO Ab IgG (test See_Comment [Automated code = 4199391246) message] The system which generated this result transmitted reference range : 0.0 - 100.0 WHO Units. The reference range was not used to interpret this result as normal/abnormal . ZAC (test code = Interpretation: ZAC) Negative: ?<= 100 WHO UnitsPositive: ? > 100 WHO Units A positive result indicates the presence of TPO antibodies and suggests thepossibility of Ashly's thyroiditis and/or Graves' disease. ?A negativeresult indicates no TPO antibodies or levels below the negative cut-off ofthe assay. ?The presence of antibodies to TPO can be used in conjunction withclinical findings and other laboratory tests to aid in the diagnosis ofautoimmune thyroid diseases such as Ashly's thyroiditis and Graves'disease. Lab Interpretation Normal (test code = 62893-9) [facility]CLE[facility]-PATHOLOGIST [id number] 22:05:50ANA - Pathologist InterpretationANA HEp-2 IIFA Pathologist Interpretation Report Patient Name: Kitty Tejeda? 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 A titer greater than or equal to 1:160 is generally considered to be clinically significant. ? Remarks: The AC-4/5-Speckled Pattern is associated with autoantibodies to numerous antigens, including (but not limited) to SS- A/Ro, SS-B/La, U1RNP, Sm, and RNA polymerase III. For more information (including clinical associations), the International Consensus on SANJU Patterns (ICAP) guidelines can be found at www.anapatterns.org. However, this patient's titer of 1:80 is below the level widely regarded as clinically significant for a systemic autoimmune rheumaticdisease. A titer of greater than or equal to 1:80 may occur in up to 10-12% of individuals without asystemic autoimmune rheumatic disease. In contrast, a titer greater than or equal to 1:160 is generally considered to be clinically significant, as only up to 5% of individuals in the general population will have a positive SANJU at this titer. ? ? Therefore, this low positive SANJU result does not necessarily indicate that the patient has a systemic autoimmune rheumatic disease. Furthermore, false positive SANJU results are associated with increasing age and female gender. However, early autoimmune disease may present with a low positive SANJU titer. ? If clinically suspecting an autoimmune disorder, repeating the SANJU screen at a future date may be informative due to the evolving nature of systemic autoimmune rheumatic disease. Of note, the SANJU test is not useful for the diagnosis of rheumatoid arthritis, multiple sclerosis, idiopathic thrombocytopenic purpura, thyroid disease, discoid lupus, or fibromyalgia. (https://pubmed.ncbi.nlm.nih.gov/81502949/) ?A diagnosis cannot be based exclusively on SANJU detection and/or pattern and thus should be made via the integration of patient history, physical exam findings, and other diagnostic tests as clinically indicated. ? Gina Medina MD ?11/19/2021 ?5:[address] [facility] SERVICESUnMemorial [facility] ANTI-NUCLEAR ANTIBODY [id number] 22:04:19 Test Item Value Reference Range Interpretation Comments SANJU Titer by IFA 1:80 (test code = 8619564205) SANJU Pattern (test Speckled code = 6235386063) ZAC (test code = ZAC) Anti-nuclear antibodies are seen in a variety of autoimmune diseases and may also be seen in low titers in otherwise normal individuals without evidence of autoimmune disease. In general, a titer greater than or equal to 1:160 is considered significant. For further information, contact the appropriate Specialist. For additional SANJU tests, refer to the Laboratory Test Directory. The specimen will be held for 7 days. [facility]-19 21:24:11 Test Item Value Reference Range Interpretation Comments POCT GLU (test code = 7056351125) 89 mg/dL 70-110 Lab Interpretation (test code = Normal 10788-5) [facility] HospitalHOMOCYSTEINE2022-06-01 19:33:59 Test Item Value Reference Range Interpretation Comments Homocysteine (test code = 13.4 umol/L 4.7-12.6 H 3615527324) Lab Interpretation (test code = Abnormal 08501-5) [facility] HospitalC-REACTIVE [id number] 18:20:10 Test Item Value Reference Range Interpretation Comments CRP (test code = 2755434033) 1.9 mg/dL <0.8 H Lab Interpretation (test code = Abnormal 11305-5) [facility] HospitalSEDIMENTATION [id number] 17:59:11 Test Item Value Reference Range Interpretation Comments ESR (test code = See_Comment H [Automated message] 9610330149) The system [employer] generated this result transmitted ref erence range: 0 - 20 m m/HR. The reference r mary lou was not used to interpret this result as normal/abnor mal. Lab Interpretation (test Abnormal code = 68835-1) [facility] GLUCOSE (AUTOMATED)2021-11-19 16:55:59 Test Item Value Reference Range Interpretation Comments POCT GLU (test code = 3778664578) 103 mg/dL 70-110 Lab Interpretation (test code = Normal 17436-3) [facility] GLUCOSE (AUTOMATED)2021-11-19 12:24:27 Test Item Value Reference Range Interpretation Comments POCT GLU (test code = 6217205222) 114 mg/dL 70-110 H Lab Interpretation (test code = Abnormal 49742-6) [facility] METABOLIC PANEL (NA, K, CL, CO2, GLUCOSE, BUN, CREATININE, CA)2021-11-19 09:22:00 Test Item Value Reference Range Interpretation Comments NA (test code = 145 mmol/L 135-145 4716622619) K (test code = 3.5 mmol/L 3.5-5.0 4552945995) CL (test code = 114 mmol/L 98-108 H 9068128541) CO2 TOTAL (test code = 23 mmol/L 23-31 7305612259) AGAP (test code = 2-16 8131196057) BUN (test code = 19 mg/dL 7-23 1767812963) GLUCOSE (test code = 113 mg/dL 70-110 H 4228855339) CREATININE (test code = 0.70 mg/dL 0.50-1.04 6360095393) CALCIUM (test code = 8.9 mg/dL 8.6-10.6 7863846784) eGFR (test code = mL/min/1.73m2 6197845276) ZAC (test code = ZAC) Association of Glomerular Filtration Rate (GFR) and Staging of Kidney Disease* + --+ --+ ------+| GFR (mL/min/1.73 m2) ?| With Kidney Damage ?| ?Without Kidney Damage+ --------+ --------+ +| ?>90 ?| ?Stage one ?| ? Normal ?+ ---+ ---+ -------+| ?60-89 ?| ?Stage two ?| ? Decreased GFR ? + --+ --+ ------+| ?30-59 ?| ?Stage three ?| ? Stage three ? + --+ --+ ------+| ?15-29 ?| ?Stage four ? | ? Stage four ?+ ---+ ---+ -------+| ?<15 (or dialysis) ? ?| ?Stage five ? | ? Stage five ?+ ---+ ---+ -------+ *Each stage assumes the associated GFR level has been in effect for at least three months. ?Stages 1 to 5, with or without kidney disease, indicate chronic kidney disease. Notes: Determination of stages one and two (with eGFR >59mL/min/1.73 m2) requires estimation of kidney damage for at least three months as defined by structural or functional abnormalities of the kidney, manifested by either:Pathological abnormalities or Markers of kidney damage (including abnormalities in the composition of the blood or urine or abnormalities in imaging tests). Lab Interpretation Abnormal (test code = 89126-7) [facility] HospitalMAGNESIUM2022-[facility] 09:22:00 Test Item Value Reference Range Interpretation Comments MAGNESIUM (test code = 5135389844) 2.0 mg/dL 1.7-2.4 Lab Interpretation (test code = Normal 99001-1) [facility] WITH [id number] 08:57:18 Test Item Value Reference Range Interpretation Comments WBC (test code = See_Comment H [Automated 1290-2) message] The sy stem which generated this result transmitted reference range : 4.30 - 11.10 10*3/?L. The reference range was not used to interpret this result as normal/abnormal . RBC (test code = See_Comment [Automated 819-8) message] The sy stem which generated this result transmitted reference range : 3.93 - 5.25 10*6/?L. The reference range was not used to interpret this result as normal/abnormal . HGB (test code = 13.4 g/dL 11.6-15.0 718-7) HCT (test code = 41.6 % 35.7-45.2 4544-3) MCV (test code = 88.1 fL 80.6-95.5 787-2) MCH (test code = 28.4 pg 25.9-32.8 785-6) MCHC (test code = 32.2 g/dL 31.6-35.1 786-4) RDW-SD (test code = 45.7 fL 39.0-49.9 70132-6) RDW-CV (test code = 14.1 % 12.0-15.5 788-0) PLT (test code = See_Comment [Automated 777-3) message] The sy stem which generated this result transmitted reference range : 166 - 358 10*3/ ?L. The reference r mary lou was not used to interpret this result as normal/abnormal . MPV (test code = 11.4 fL 9.5-12.9 11380-3) NRBC/100 WBC (test See_Comment [Automat ed code = 7898286154) message] The system which generated this result transmitted reference range : 0.0 - 10.0 /100 WBCs. The refer ence range was not u sed to interpret th is result as normal/abnormal . NRBC x10^3 (test code <0.01 See_Comment [Auto mated = 2527704079) message] The s ystem which generated this result transmitted reference range : 10*3/?L. The reference range was not used to interpret this result as normal/abnormal . GRAN MAT (NEUT) % 79.9 % (test code = 770-8) IMM GRAN % (test code 0.50 % = 5688299369) LYMPH % (test code = 11.9 % 736-9) MONO % (test code = 5.5 % 5905-5) EOS % (test code = 2.0 % 713-8) BASO % (test code = 0.2 % 706-2) GRAN MAT x10^3(ANC) 8.89 10*3/uL 1.88-7.09 H (test code = 1756412132) IMM GRAN x10^3 (test 0.06 10*3/uL 0.00-0.06 code = 2408879571) LYMPH x10^3 (test code 1.33 10*3/uL 1.32-3.29 = 731-0) MONO x10^3 (test code 0.61 10*3/uL 0.33-0.92 = 742-7) EOS x10^3 (test code = 0.22 10*3/uL 0.03-0.39 711-2) BASO x10^3 (test code <0.03 0.01-0.07 = 704-7) Lab Interpretation Abnormal (test code = 35833-4) [facility] GLUCOSE (AUTOMATED)2021-11-19 01:43:32 Test Item Value Reference Range Interpretation Comments POCT GLU (test code = 8246214025) 93 mg/dL 70-110 Lab Interpretation (test code = Normal 37805-9) [facility] HospitalANTI-NUCLEAR ANTIBODY [id number] 22:05:09 Test Item Value Reference Range Interpretation Comments SANJU (test code = Positive Negative A 5737945406) ZAC (test code = ZAC) Negative: ?No Anti-Nuclear Antibodies detected by IFA. Positive: ?SANJU IFA screen performed with a 1:80 dilution in adults and a 1:40 dilution in pediatrics. ?A titer is performed and reported separately when the SANJU is "Positive" or when "Cytoplasmic staining is observed." Negative: ?No Anti-Nuclear Antibodies detected by IFA. Positive: ?SANJU IFA screen performed with a 1:80 dilution in adults and a 1:40 dilution in pediatrics. ?A titer is performed and reported separately when the SANJU is "Positive" or when "Cytoplasmic staining is observed." Lab Interpretation (test Abnormal code = 15570-5) [facility] GLUCOSE (AUTOMATED)2021-11-18 21:36:26 Test Item Value Reference Range Interpretation Comments POCT GLU (test code = 6316018155) 90 mg/dL 70-110 Lab Interpretation (test code = Normal 67858-0) [facility] HospitalProthrombin Time (PTT) / [id number] 20:30:53 Test Item Value Reference Range Interpretation Comments PROTIME PATIENT (test See_Comment H [Auto mated message] code = 5964-2) The system wh ich generated this result transmitted ref erence range: 10.1 - 1 2.6 Seconds. The reference range was not used to int erpret this result as normal/abnormal . INR (test code = 6301-6) Nor mal INR <1.1; Warfarin Therap eutic range 2.0 to 3. 0 or 2.5 to 3.5, dep ending upon the indica tions. Lab Interpretation (test Abnormal code = 21589-1) [facility] HospitalAC Panel 20 + Lactic [id number] 20:13:56 Test Item Value Reference Range Interpretation Comments PH (test code = 2) 7.35-7.45 PCO2 (test code = See_Comment L [Automat ed 0711699929) message] The sy stem which generated this result transmitted reference range : 35 - 45 mmHg. The reference range was not used to interpret this result as normal/abnormal . PO2 (test code = See_Comment L [Automated 3247263806) message] The sy stem which generated this result transmitted reference range : 80 - 100 mmHg. The reference range was not used to interpret this result as normal/abnormal . HCO3 (test code = See_Comment [Automate d 9729522001) message] The sy stem which generated this result transmitted reference range : 22 - 26 mEq/L. The reference range was not used to interpret this result as normal/abnormal . BE (test code = See_Comment [Automated 0694091167) message] The sy stem which generated this result transmitted reference range : -3.0 - 3.0 mEq/ L. The reference r mary lou was not used to interpret this result as normal/abnormal . THB (test code = 13.9 g/dL 12.0-16.0 7383888811) %O2HB (test code = 93.3 % 94.0-99.0 L 1685320529) %COHB ART (test code = 0.8 % 0.0-1.5 3887162805) %METHB ART (test code = 0.3 % 0.4-1.5 L 1138685961) VOL%O2 ART (test code = 18.2 % 15.0-23.0 6864569453) NA (test code = 141 mmol/L 135-145 1079394137) K+ (test code = 3.4 mmol/L 3.5-5.0 L 4304933474) AC CA IONZ (test code = 4.70 mg/dL 4.50-5.30 5004787196) GLUCOSE (test code = 106 mg/dL 70-110 6192415779) LACTIC ACID (test code 0.72 mmol/L 0.50-2.20 = 7141638510) Lab Interpretation Abnormal (test code = 14276-1) [facility] HospitalFA[facility] 5 [id number] 19:28:20 Test Item Value Reference Range Interpretation Comments FACTOR 5 LEIDEN Normal Normal (test code = 9898527985) ZAC (test code = Phenotype Characteristics: ZAC) 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 Incidence: Between 3 and 8 percent of people with ancestry are heterozygous and about 1 in 5000 individuals are homozygous with two copies of the mutation. The mutation is less common in other population.Inheritance: Autosomal dominant. Penetrance: Lifetime risk of thrombosis is 10 percent for heterozygotes and 80 percent for homozygotes. Mutation Tested: Missense F5 gene mutation R506Q (1691G>A). Note: Standardized nomenclature for the Factor 5 Leiden mutation is c.1601G>A (p.Zam152Hai). Methodology: Polymerase chain reaction and fluorescence monitoring. Limitations: Rare Factor V mutations (Q2104Q, A2122H, and V3165K) and any additional SNPs in the probe binding region may interfere with the target detection and yield an INVALID result. The performance of this assay has not been evaluated with samples from pediatric patients. Counseling and informed consent are recommended for genetic testing. References: OMIM: 562956 https://ghr.nlm.nih.gov/co ndition/ixpcng-q-quekup-th rombophilia [facility] HospitalSTROKE Protocol - Transthoracic echo (TTE) 2021-11-18 19:03:58 Test Item Value Reference Range Interpretation Comments LVOT stroke volume (test 85.70 cm3 code = 4798987125) EF(Teich) (test code = 70.20 % 9055068335) LVIDD (test code = 5.00 cm 1032057178) LVIDS (test code = 3.00 cm 5079734114) IVS (test code = 1.27 cm 3200921652) LVPWD (test code = 1.28 cm 6297455078) LVOT diameter (test code 2.14 cm = 1787191085) FS (test code = 40 % 4829610790) MV Peak E Ramu (test code 144.4 cm/s = 6393418324) MV Peak A Ramu (test code 190.5 cm/s = 7150616848) E/A ratio (test code = ratio 9653511639) E wave decelartion time 0.10 s (test code = 5643124603) MV E/e' septal (test 6.6 cm/s code = 2133333203) LA volume (BP) (test 68.9 mL code = 9721915144) LVOT peak ramu (test code 151.5 cm/s = 1461946182) LVOT mn grad (test code mmHg = 1211072716) LA size (test code = 4.3 cm 0880082022) LAV(MOD-sp2) (test code 65.20 mL = 7375704320) LAV(MOD-sp4) (test code 73.20 mL = 7144527431) Tapse (test code = 2.9 cm 1804240149) AV LVOT peak gradient mmHg (test code = 2328023273) LVOT peak VTI (test code 23.9 cm = 2219194148) LV V1 mean (test code = 102.80 cm/s 8238978467) Ao root annulus (test 3.4 cm code = 4142440285) Ao root diam (test code 3.40 cm = 5968442193) Aortic root (test code = 3.4 cm 8836613911) PW (test code = 1.28 cm 0.6-1.8 7739999806) EF - 2D (test code = 70.20 % 32584373) Interventricular Septum 1.27 cm Diastolic Thickness by 2D (test code = 2969071) Radiology Study observation (narrative) (test code = 15719-0) ZAC (test code = ZAC) ?Left?Ventricle: Left ventricle size is normal. Increased wall thickness. There is concentric remodeling. LV Mass index 101 g/m^2, RWT 0.51 Normal wall motion. Normal systolic function with a visually estimated EF of 55 - 60%. Septal motion is normal. Indeterminate diastolic function. ?Right?Ventricle: Right ventricle size is normal. Normal systolic function. ?Left?Atrium: PFO present, Delayed opacification in the LV (5-6 beats) indicating extracardiac shunt ?Tricuspid?Valve: Insufficient regurgant jet to estimate RVSP. ?Aorta: Sinus of Valsalva is normal in size. ?Pericardium: No pericardial effusion. Gallito Diehl MD [facility] Weight BSA (Calculated - sq m) BP Pulse 5' 4" (1.626 m) 309 lb (140.2 kg) 2.51 sq meters 199/91 108 [facility]-SSA(RO)2021-11-18 18:33:15 Test Item Value Reference Range Interpretation Comments ANTI-SSA(RO) (test See Comment Negative No result due to code = 0843166956) inhibitor s or inadequate samp le for testing. ZAC (test code = ZAC) Positive - Antibody detected.Negati ve - No antibody detected. Lab Interpretation Normal (test code = 03745-2) [facility]-DOUBLE STRANDED [id number] 18:33:10 ANTI-DSDNAComment: No result due to inhibitors or inadequate sample for testing. [facility] LABORATORY SERVICESNegative ? ?< or = 4 IU/mLPositive ? ? ?> or = 10 IU/mLIndeterminate ?5-9 IU/mLUnTri [facility]-SSB(LA) 2021-11-18 18:33:05 Test Item Value Reference Range Interpretation Comments Anti-SSB(LA) (test See Comment Negative No result due to code = 5586803448) inhibitor s or inadequate samp le for testing. ZAC (test code = ZAC) Positive - Antibody detected.Negati ve - No antibody detected. Lab Interpretation Normal (test code = 89756-0) [facility] HospitalGALV ONLY - SYPHILIS [id number] 18:07:11 Test Item Value Reference Range Interpretation Comments Syphilis IgG/IgM (test Non-reactive Non-reactive code = 90033-4) ZAC (test code = ZCA) Non-reactive - No serologic evidence of T. pallidum infection. Cannot exclude incubating or early syphilis. Submit a second specimen in 2-4 weeks if syphilis is clinically suspected. Equivocal - Further testing to follow. Reactive - Further testing to follow. Lab Interpretation (test Normal code = 87613-6) [facility] HospitalANCA [id number] 18:03:59 Test Item Value Reference Range Interpretation Comments Myeloperoxidase (MPO) Negative Negative Antibodies, IgG Interpretation (test code = 47770-1) Proteinase 3 (PR3) Negative Negative Antibodies, IgG Interpretation (test code = 79741-3) Myeloperoxidase (MPO) <0.3 See_Comment [Auto mated Antibodies, IgG (test messag e] The code = 0982062055) system [facility] generated this result transmitted reference range : <=3.5 U/mL. The reference range was not used to interpret this result as normal/abnormal . Proteinase 3 (PR3) <0.7 See_Comment [Automat ed Antibodies, IgG (test messag e] The code = 4254119290) system [facility] generated this result transmitted reference range : <=2.0 U/mL. The reference range was not used to interpret this result as normal/abnormal . ZAC (test code = ZAC) Test ?Unit ? Negative ? ? ? Equivocal ? Positive Juan Pablo MPOs ? ? ? U/ml ? <3.5 ? 3.5-5.0 ? >5 Juan Pablo PR3s ? ? ? U/ml ? <2.0 ? 2.0-3.0 ? >3.0 In case of equivocal results, we recommend to retest the patient after 8 - 12 weeks. Lab Interpretation Normal (test code = 99680-8) [facility]2021-11-18 17:05:15 Test Item Value Reference Range Interpretation Comments POCT GLU (test code = 5220669467) 106 mg/dL 70-110 Lab Interpretation (test code = Normal 06439-2) [facility] HospitalPROTEIN S [id number] 16:48:37 Test Item Value Reference Range Interpretation Comments PROTEIN S ACTIVITY (test 135 % 64-149 code = 8620055760) ZAC (test code = ZAC) Age and hormonal status may affect the normal range for females (particularly during ). Test should not be ordered in patients on Coumadin as it can decrease Protein C and S levels. Additional studies should be conducted to determine the source of unexpected abnormal results. ? Lab Interpretation (test Normal code = 21178-7) [facility] HospitalPROTEIN C [id number] 16:48:21 Test Item Value Reference Range Interpretation Comments PROTEIN C ACTIVITY (test 138 % 70-140 code = 8192725707) ZAC (test code = ZAC) Test should not be ordered in patients on Coumadin as it can decrease Protein C and S levels. Protein C activity is low in neonates and infants and increases to adult levels during adolescence. Additional studies should be conducted to determine the source of unexpected abnormal results. Lab Interpretation (test Normal code = 30071-9) [facility] HospitalANTITHROMBIN [id number] 16:48:10 Test Item Value Reference Range Interpretation Comments ANTITHROMBIN ACTIVITY (test code = 120 % 83-128 1437758107) Lab Interpretation (test code = Normal 41865-1) [facility]2021-11-18 12:48:07 Test Item Value Reference Range Interpretation Comments POCT GLU (test code = 4488553864) 107 mg/dL 70-110 Lab Interpretation (test code = Normal 69508-0) [facility] HospitalTROPONIN [id number] 07:39:20 Test Item Value Reference Interpretation Comments Range TROPONIN I (test 0.018 ng/mL See_Comment [Automated code = 9982270489) message] The system which generated this result transmitted reference range : <=0.034. The reference range was not used to interpret this result as normal/abnormal . ZAC (test code = Reference (Normal) ZAC) Range (defined by the 99th percentile reference limit): <= 0.034 ng/mL Note: Cardiac troponin begins to rise 3-4 hours after the onset of ischemia. Repeat in 4-6 hours if the sample was drawn within 3-4 hours of the onset of the symptom and found normal. Diagnosis of myocardial injury is made with acute changes in cTn concentrations with at least one serial sample above the 99th percentile upper reference limit (URL), taken together with the patient's clinical presentation. Biotin has been reported to cause a negative bias, interpret results relative to patient's use of biotin. Lab Interpretation Normal (test code = 81163-9) [facility] Metabolic Panel (Na, K, Cl, CO2, Glucose, BUN, Creatinine, Ca)2021-11-18 07:24:43 Test Item Value Reference Range Interpretation Comments NA (test code = 144 mmol/L 135-145 5443857533) K (test code = 3.9 mmol/L 3.5-5.0 6962577371) CL (test code = 110 mmol/L 98-108 H 8831077203) CO2 TOTAL (test code = 24 mmol/L 23-31 4443622738) AGAP (test code = 2-16 8656062571) BUN (test code = 20 mg/dL 7-23 0219826987) GLUCOSE (test code = 120 mg/dL 70-110 H 0933931578) CREATININE (test code = 0.95 mg/dL 0.50-1.04 3702177395) CALCIUM (test code = 9.2 mg/dL 8.6-10.6 8533580842) eGFR (test code = mL/min/1.73m2 5220230125) ZAC (test code = ZAC) Association of Glomerular Filtration Rate (GFR) and Staging of Kidney Disease* + --+ --+ ------+| GFR (mL/min/1.73 m2) ?| With Kidney Damage ?| ?Without Kidney Damage+ --------+ --------+ +| ?>90 ?| ?Stage one ?| ? Normal ?+ ---+ ---+ -------+| ?60-89 ?| ?Stage two ?| ? Decreased GFR ? + --+ --+ ------+| ?30-59 ?| ?Stage three ?| ? Stage three ? + --+ --+ ------+| ?15-29 ?| ?Stage four ? | ? Stage four ?+ ---+ ---+ -------+| ?<15 (or dialysis) ? ?| ?Stage five ? | ? Stage five ?+ ---+ ---+ -------+ *Each stage assumes the associated GFR level has been in effect for at least three months. ?Stages 1 to 5, with or without kidney disease, indicate chronic kidney disease. Notes: Determination of stages one and two (with eGFR >59mL/min/1.73 m2) requires estimation of kidney damage for at least three months as defined by structural or functional abnormalities of the kidney, manifested by either:Pathological abnormalities or Markers of kidney damage (including abnormalities in the composition of the blood or urine or abnormalities in imaging tests). Lab Interpretation Abnormal (test code = 53894-7) [facility] HospitalMagensium, [id number] 07:24:43 Test Item Value Reference Range Interpretation Comments MAGNESIUM (test code = 9908295298) 1.9 mg/dL 1.7-2.4 Lab Interpretation (test code = Normal 14557-3) [facility] [id number] 07:15:02 Test Item Value Reference Range Interpretation Comments HIV Negative Negative Semi-quantitative (test code = 57037-8) ZAC (test code = Non-reactive for HIV-1 ZAC) antigen and HIV-1/HIV-2 antibodies. ?No laboratory evidence of HIV infection. ?Repeat in 2-4 weeks if acute HIV infection is suspected. [facility] [id number] 06:57:58 Test Item Value Reference Range Interpretation Comments WBC (test code = See_Comment [Automated 8690-2) message] The sy stem which generated this result transmitted reference range : 4.30 - 11.10 10*3/?L. The reference range was not used to interpret this result as normal/abnormal . RBC (test code = See_Comment [Automated 149-8) message] The sy stem which generated this result transmitted reference range : 3.93 - 5.25 10*6/?L. The reference range was not used to interpret this result as normal/abnormal . HGB (test code = 14.4 g/dL 11.6-15.0 718-7) HCT (test code = 44.8 % 35.7-45.2 4544-3) MCV (test code = 88.4 fL 80.6-95.5 787-2) MCH (test code = 28.4 pg 25.9-32.8 785-6) MCHC (test code = 32.1 g/dL 31.6-35.1 786-4) RDW-SD (test code = 45.0 fL 39.0-49.9 86321-7) RDW-CV (test code = 14.1 % 12.0-15.5 788-0) PLT (test code = See_Comment [Automated 777-3) message] The sy stem which generated this result transmitted reference range : 166 - 358 10*3/ ?L. The reference r mary lou was not used to interpret this result as normal/abnormal . MPV (test code = 11.6 fL 9.5-12.9 32838-6) NRBC/100 WBC (test See_Comment [Automat ed code = 8383329298) message] The system which generated this result transmitted reference range : 0.0 - 10.0 /100 WBCs. The refer ence range was not u sed to interpret th is result as normal/abnormal . NRBC x10^3 (test code <0.01 See_Comment [Auto mated = 5260901471) message] The s ystem which generated this result transmitted reference range : 10*3/?L. The reference range was not used to interpret this result as normal/abnormal . GRAN MAT (NEUT) % 80.7 % (test code = 770-8) IMM GRAN % (test code 0.30 % = 8440019244) LYMPH % (test code = 11.9 % 736-9) MONO % (test code = 6.2 % 5905-5) EOS % (test code = 0.6 % 713-8) BASO % (test code = 0.3 % 706-2) GRAN MAT x10^3(ANC) 7.77 10*3/uL 1.88-7.09 H (test code = 8681085405) IMM GRAN x10^3 (test 0.03 10*3/uL 0.00-0.06 code = 2270892586) LYMPH x10^3 (test code 1.15 10*3/uL 1.32-3.29 L = 731-0) MONO x10^3 (test code 0.60 10*3/uL 0.33-0.92 = 742-7) EOS x10^3 (test code = 0.06 10*3/uL 0.03-0.39 711-2) BASO x10^3 (test code 0.03 10*3/uL 0.01-0.07 = 704-7) Lab Interpretation Abnormal (test code = 34893-1) [facility] [id number] 06:18:38 Test Item Value Reference Range Interpretation Comments HCV Ab (test code = 58833-5) Negative HCV Semi-Quantitative (test code = 18638-8) [facility]GG)2021-11-18 06:18:38 Test Item Value Reference Range Interpretation Comments HBC (test code = 2120764765) Negative HBC Semi-Quantitative (test code = 6755488654) [facility] Surface [id number] 06:00:34 Test Item Value Reference Range Interpretation Comments HBsAg Semi-Quantitative (test code = Negative Negative 5195-3) [facility] [id number] 01:38:44 Test Item Value Reference Interpretation Comments Range TROPONIN I (test 0.015 ng/mL See_Comment [Automated code = 5076469524) message] The system which generated this result transmitted reference range : <=0.034. The reference range was not used to interpret this result as normal/abnormal . ZAC (test code = Reference (Normal) ZAC) Range (defined by the 99th percentile reference limit): <= 0.034 ng/mL Note: Cardiac troponin begins to rise 3-4 hours after the onset of ischemia. Repeat in 4-6 hours if the sample was drawn within 3-4 hours of the onset of the symptom and found normal. Diagnosis of myocardial injury is made with acute changes in cTn concentrations with at least one serial sample above the 99th percentile upper reference limit (URL), taken together with the patient's clinical presentation. Biotin has been reported to cause a negative bias, interpret results relative to patient's use of biotin. Lab Interpretation Normal (test code = 91625-4) [facility] GLUCOSE (AUTOMATED)2021-11-18 00:40:49 Test Item Value Reference Range Interpretation Comments POCT GLU (test code = 1083198886) 112 mg/dL 70-110 H Lab Interpretation (test code = Abnormal 08777-1) [facility] GLUCOSE (AUTOMATED)2021-11-17 23:24:14 Test Item Value Reference Range Interpretation Comments POCT GLU (test code = 7831344969) 112 mg/dL 70-110 H Lab Interpretation (test code = Abnormal 51294-2) [facility]2021-11-17 18:20:15 Test Item Value Reference Range Interpretation Comments POCT GLU (test code = 5844992648) 109 mg/dL 70-110 Lab Interpretation (test code = Normal 29351-5) [facility] [id number] 18:11:05 Test Item Value Reference Interpretation Comments Range TROPONIN I (test 0.021 ng/mL See_Comment [Automated code = 6623116596) message] The system which generated this result transmitted reference range : <=0.034. The reference range was not used to interpret this result as normal/abnormal . ZAC (test code = Reference (Normal) ZAC) Range (defined by the 99th percentile reference limit): <= 0.034 ng/mL Note: Cardiac troponin begins to rise 3-4 hours after the onset of ischemia. Repeat in 4-6 hours if the sample was drawn within 3-4 hours of the onset of the symptom and found normal. Diagnosis of myocardial injury is made with acute changes in cTn concentrations with at least one serial sample above the 99th percentile upper reference limit (URL), taken together with the patient's clinical presentation. Biotin has been reported to cause a negative bias, interpret results relative to patient's use of biotin. Lab Interpretation Normal (test code = 96282-3) [facility] (A1C)2021-11-16 01:37:19 Test Item Value Reference Range Interpretation Comments HGB A1C (test code = 5.8 % 4.0-5.7 H 4548-4) ZAC (test code = ZAC) Reference RangesNormal: <5.7%Prediabetes: 5.7 - 6.4%Diabetes: > 6.5% Lab Interpretation (test Abnormal code = 86898-2) [facility]ATING [id number] 01:28:27 Test Item Value Reference Range Interpretation Comments TSH (test code = See_Comment [Automated message] 6823891089) The system [employer] generated this result transmitted ref erence range: 0.45 - 4 .70 mIU/L. The refe rence range was not u sed to interpret this result as normal/abnor mal. Lab Interpretation (test Normal code = 13425-7) [facility] LIPID PANEL (23774)(TOTAL CHOLESTEROL, TRIGLYCERIDES, HDL)2021-11-16 00:55:25 Test Item Value Reference Range Interpretation Comments CHOL (test code = 196 mg/dL 120-200 0549271569) HDL (test code = 46 mg/dL >50 L 7633836351) HDLC RATIO (test code = See_Comment [Au tomated message] 3930763641) The system [employer] generated this result transmit wei reference range : <=4.5. The refe rence range was not u sed to interpret th is result as normal/abnormal . TRIG (test code = 87 mg/dL 30-170 8108965930) LDL CHOL (test code = 133 mg/dL See_Comment [Auto mated message] 89167-4) The system [employer] generated this result transmit wei reference range : <=160. The refe rence range was not u sed to interpret th is result as normal/abnormal . VLDL (test code = 17 mg/dL 5-60 0966595965) Lab Interpretation (test Abnormal code = 07566-7) [facility]. METABOLIC PANEL (56252)2021-11-16 00:55:25 Test Item Value Reference Range Interpretation Comments NA (test code = 141 mmol/L 135-145 4963342638) K (test code = 3.3 mmol/L 3.5-5.0 L 7342770051) CL (test code = 105 mmol/L 98-108 5947431351) CO2 TOTAL (test code = 29 mmol/L 23-31 5293699197) AGAP (test code = 2-16 2097372018) BUN (test code = 12 mg/dL 7-23 3053147592) GLUCOSE (test code = 111 mg/dL 70-110 H 7811136902) CREATININE (test code = 0.75 mg/dL 0.50-1.04 0548983615) TOTAL BILI (test code = 0.5 mg/dL 0.1-1.7 3933173241) CALCIUM (test code = 9.8 mg/dL 8.6-10.6 2148879977) T PROTEIN (test code = 8.2 g/dL 6.3-8.2 9762818678) ALBUMIN (test code = 4.3 g/dL 3.5-5.0 9116053216) ALK PHOS (test code = 110 U/L 34-122 7461275036) ALTv (test code = 19 U/L 5-35 1742-6) AST(SGOT) (test code = 47 U/L 13-40 H 4198315412) eGFR (test code = mL/min/1.73m2 0476782436) ZAC (test code = ZAC) Association of Glomerular Filtration Rate (GFR) and Staging of Kidney Disease* + --+ --+ ------+| GFR (mL/min/1.73 m2) ?| With Kidney Damage ?| ?Without Kidney Damage+ --------+ --------+ +| ?>90 ?| ?Stage one ?| ? Normal ?+ ---+ ---+ -------+| ?60-89 ?| ?Stage two ?| ? Decreased GFR ? + --+ --+ ------+| ?30-59 ?| ?Stage three ?| ? Stage three ? + --+ --+ ------+| ?15-29 ?| ?Stage four ? | ? Stage four ?+ ---+ ---+ -------+| ?<15 (or dialysis) ? ?| ?Stage five ? | ? Stage five ?+ ---+ ---+ -------+ *Each stage assumes the associated GFR level has been in effect for at least three months. ?Stages 1 to 5, with or without kidney disease, indicate chronic kidney disease. Notes: Determination of stages one and two (with eGFR >59mL/min/1.73 m2) requires estimation of kidney damage for at least three months as defined by structural or functional abnormalities of the kidney, manifested by either:Pathological abnormalities or Markers of kidney damage (including abnormalities in the composition of the blood or urine or abnormalities in imaging tests). Lab Interpretation Abnormal (test code = 52952-3) [facility] WITHOUT [id number] 00:33:28 Test Item Value Reference Range Interpretation Comments WBC (test code = See_Comment [Automated message] The 6690-2) system which ge nerated this result tra nsmitted reference range : 4.30 - 11.10 10*3/?L. The reference range was not used to interpr et this result as normal/abnormal . RBC (test code = See_Comment [Automated message] The 789-8) system which nerated this result tra nsmitted reference range : 3.93 - 5.25 10*6/?L. T he reference range was not used to interpr et this result as normal/abnormal . HGB (test code = 14.0 g/dL 11.6-15.0 718-7) HCT (test code = 43.0 % 35.7-45.2 4544-3) MCH (test code = 28.3 pg 25.9-32.8 785-6) MCV (test code = 86.9 fL 80.6-95.5 787-2) MCHC (test code = 32.6 g/dL 31.6-35.1 786-4) PLT (test code = See_Comment [Automated message] The 777-3) system which nerated this result tra nsmitted reference range : 166 - 358 10*3/?L. Th e reference range was not used to interpr et this result as normal/abnormal . MPV (test code = 11.7 fL 9.5-12.9 30021-7) RDW-CV (test code = 13.7 % 12.0-15.5 788-0) RDW-SD (test code = 43.5 fL 39.0-49.9 67052-0) NRBC x10^3 (test <0.01 See_Comment [Automated message] The code = 7201626163) system [facility] generated this result tra nsmitted reference range : 10*3/?L. The reference r mary lou was not used to int erpret this result as normal/abnormal . NRBC/100 WBC (test See_Comment [Automat ed message] The code = 1133513021) system [facility] generated this result tra nsmitted reference range : 0.0 - 10.0 /100 WBCs. The reference range was not used to interpr et this result as normal/abnormal . IPF % (test code = 1521967908) [facility]
[2021-12-05] MEDS ORDERED: NOREPINEPHRINE 4mg/D5W 250mL 4 MG/250 ML BAG IV ONE (06:56)
[2021-12-05 07:36] LABS: Absolute Lymphocytes (CBC) 2.4 K/uL (0.7-4.9); Hematocrit 22.7 % (36.0-45.0); Lymphocytes % 13.9 % (15.3-44.8); MPV 10.4 fL (7.6-11.3)
[2021-12-05 07:39] LABS: Protime INR 1.93
--- NOTE | 2021-12-05 08:06 | EDPHYS ---
Physician Documentation [facility] Name: Kitty Tejeda Age: 51 yrs Sex: Female : 1970 Arrival Date: 12/05/2021 Time: 06:32 Bed 3 Private MD: ED Physician Bobby Michele HPI: 12/05 07:23 This 51 yrs old Female presents to ER via EMS with complaints of ams, dyspnea chintan and cpr. 07:24 The patient has shortness of breath during heavy activity, and the patient has a chintan history of. Onset: The symptoms/episode began/occurred 1 hour(s) ago. Duration: The symptoms are continuous, and are unchanged since they started. The patient's shortness of breath has no apparent modifying factors. Preceding the arrest, the patient was dyspneic, was found down. The arrest occurred at [facility]. Pre-hospital course: Bystanders at the scene performed CPR. The patient presents with decreased responsiveness. Possible causes: CVA or TIA, head injury, low blood sugar, seizure, sepsis. Associated signs and symptoms: Pertinent positives: unresponsive, with pulse. Severity of symptoms: At their worst the symptoms were severe in the emergency department the symptoms are unchanged. Associated signs and symptoms: The patient has no apparent associated signs or symptoms. - Code Status:: unknown. - Family history:: not pertinent. ROS: 07:24 Unable to obtain ROS due to obtunded state. chintan Exam: 07:24 Eyes: Pupils: equal, round, and reactive to light and accomodation. chintan 07:24 Cardiovascular: Rate: tachycardic, Rhythm: regular, Pulses: Pulses are 2+ in bilateral radial, brachial, femoral, popliteal, posterior tibial and and dorsalis pedis arteries.. Heart sounds: faint. 07:24 ECG was reviewed by the Attending Physician. 07:24 Respiratory: moderate respiratory distress is noted, severe repiratory distress is noted, Respirations: labored breathing, Breath sounds: decreased breath sounds, that are moderate, are located in both bases, rhonchi, that are mild, that are moderate, stridor, is not appreciated. 07:24 Abdomen/GI: Inspection: distension. 07:39 Constitutional: The patient appears obese, in obvious distress, severely distressed. [facility] Vital Signs: 06:30 BP 102 / 82; Pulse 41; Resp 12 A; Temp 97.2(C); Pulse Ox 77% on R/A; Weight 117.93 kg; tw5 07:38 BP 149 / 111; Pulse 115; Resp 18 A; Pulse Ox 98% on ETT vent; jd3 07:45 BP 49 / 23; Pulse 53; Resp 18; jd3 07:55 Pulse 32; Resp 18 A; jd3 07:59 Pulse 0; jd3 Procedures: 07:41 Intubation: using # 3 Elena blade with 7.5 mm ETT. was successful on first attempt. chintan Tube secured at right side of mouth measured 23 cm at lip. Placement verified by CO2 detector with (+) color change, auscultating bilateral breath sounds, Patient tolerated well. Central Line: the site was prepped with Betadine, in sterile fashion, a triple lumen catheter was inserted, in the right in 2 attempts. placement was verified, by blood return, the site was dressed with Tegaderm, using sterile technique, the patient tolerated the procedure, well. MDM: 07:11 Patient medically screened. 12/05 07:19 Order name: Basic Metabolic Panel 12/05 07:19 Order name: CBC with Diff 12/05 07:19 Order name: LFT's 12/05 07:19 Order name: Magnesium 12/05 07:19 Order name: NT PRO-BNP 12/05 07:19 Order name: PT-INR 12/05 07:19 Order name: Troponin HS 12/05 07:19 Order name: ABG 12/05 07:19 Order name: Blood Culture Adult (2) 12/05 07:19 Order name: Lactate 12/05 07:19 Order name: Procalcitonin 12/05 07:21 Order name: Lipase 12/05 07:23 Order name: AMMONIA 12/05 07:19 Order name: EKG; Complete Time: 07:20 12/05 07:19 Order name: Cardiac monitoring; Complete Time: 07:47 [facility] 12/05 07:19 Order name: Labs collected and sent; Complete Time: 07:47 chintan 12/05 07:19 Order name: O2 Per Protocol; Complete Time: 07:46 12/05 07:19 Order name: O2 Sat Monitoring; Complete Time: 07:46 [facility] 12/05 07:19 Order name: Putnam; Complete Time: 08:34 chintan 12/05 07:21 Order name: Diego Ellis; Complete Time: 08:18 chintan Administered Medications: 06:50 Drug: Atropine 1 mg Route: IVP; Site: right femoral; tw5 07:50 Follow up: Response: No adverse reaction jd3 06:50 Drug: Sodium Bicarbonate 1 amp Route: IVP; Site: right femoral; tw5 07:50 Follow up: Response: No adverse reaction jd3 06:51 Drug: EPINEPHrine 0.1mg/mL 1:10,000 1 mg Route: IVP; Site: right femoral; tw5 07:50 Follow up: Response: No adverse reaction jd3 06:53 Drug: EPINEPHrine 0.1mg/mL 1:10,000 1 mg Route: IVP; Site: right femoral; tw5 07:50 Follow up: Response: No adverse reaction jd3 06:55 Drug: NS 0.9% 1000 ml Route: IV; Rate: 1 bolus; Site: right femoral; tw5 07:50 Follow up: Response: No adverse reaction; IV Status: Completed infusion jd3 07:01 Drug: Levophed (norepinephrine) 0.1 mcg/kg/min Route: IV; Rate: calculated rate; Site: tw5 right femoral; 07:59 Follow up: Response: pt ; IV Status: Order to discontinue infusion jd3 07:02 Drug: NS 0.9% 1000 ml Route: IV; Rate: 1 bolus; Site: right femoral; tw5 07:50 Follow up: Response: No adverse reaction; IV Status: Completed infusion jd3 07:33 Drug: EPINEPHrine 0.1mg/mL 1:10,000 1 mg Route: IVP; Site: right femoral; jd3 07:50 Follow up: Response: No adverse reaction jd3 07:33 Drug: Sodium Bicarbonate 1 amp Route: IVP; Site: right femoral; jd3 07:50 Follow up: Response: No adverse reaction jd3 07:34 Drug: Calcium Chloride 10% 10 ml Route: IVP; Site: right femoral; jd3 07:50 Follow up: Response: No adverse reaction jd3 07:36 Drug: EPINEPHrine 0.1mg/mL 1:10,000 1 mg Route: IVP; Site: right femoral; jd3 07:50 Follow up: Response: No adverse reaction jd3 08:17 CANCELLED (Patient ): NS 0.9% 1000 ml IV at 1 bolus Per protocol; 1000 mL bolus jd3 08:17 CANCELLED (Patient ): Zosyn (piperacillin-tazobactam) 3.375 grams IVPB once over jd3 60 mins; (mix in NS 100 mL) Disposition Summary: 12/05/21 08:06 Patient Location: Home chintan Pronouncing Physician: Bobby Michele cha Time of : 07:59 12/05/2021 chintan Diagnosis - Acute respiratory failure chintan - Cardiac arrest due to other underlying condition chintan - Severe sepsis with septic shock chintan - Morbid (severe) obesity due to excess calories chintan Signatures: Dispatcher [employer] EDMS Bobby Michele MD MD cha Davies, Jonathon, RN RN Rossana ePña tw5 Corrections: (The following items were deleted from the chart) 07:47 07:19 IV Saline Lock ordered. [facility] mb7 07:51 07:20 Chest Single View+RAD.RAD.BRZ ordered. EDMS EDMS 08:17 07:19 NS 0.9% 1000 ml IV at 1 bolus Per protocol; 1000 mL bolus ordered. [facility] jd3 08:17 07:19 Zosyn (piperacillin-tazobactam) 3.375 grams IVPB once over 60 mins; (mix in NS jd3 100 mL) ordered. [facility] 08:17 07:19 Urine Dipstick-Ancillary ordered. [facility] jd3 08:44 07:20 Head Brain Wo Cont+CT.RAD.BRZ ordered. EDMS EDMS
--- NOTE | 2021-12-05 08:06 | ER ---
Nurse's Notes [facility] Name: Kitty Tejeda Age: 51 yrs Sex: Female : 1970 Arrival Date: 12/05/2021 Time: 06:32 Bed 3 Private MD: Diagnosis: Acute respiratory failure;Cardiac arrest due to other underlying condition;Severe sepsis with septic shock;Morbid (severe) obesity due to excess calories Presentation: 12/05 06:28 Care prior to arrival: CPR performed by EMS Medication(s) given: 1 Epi and 70 mg of tw5 lidocaine IO in Left arm. Compressions began prior to arrival. 06:28 Acuity: LAUREN 1 tw5 06:28 Method Of Arrival: EMS: [facility] tw5 06:28 Chief complaint: Chief complaint: EMS states: Patient came from [facility]. Was found by nurse obtunded. 70's RA. After suction and non-rebreather patient was in low 90's. At 0626 CPR was initiated by EMS. - Code Status:: unknown. - Family history:: not pertinent. Screenin:30 Abuse screen: Denies threats or abuse. Denies injuries from another. tw5 Assessment: 06:28 CPR assessment: unresponsive, agonal respirations, Ambu ventilation, pale. Cardiac tw5 rhythm is PEA. 07:30 CPR assessment: unresponsive, Ambu ventilation, pale. Cardiac rhythm is PEA. jd3 07:37 Cardiac rhythm is sinus tach. jd3 07:45 Reassessment: Dr. Michele with family and agreed on DNR. jd3 07:45 CPR assessment: unresponsive, Ambu ventilation. jd3 07:50 General: Behavior is unresponsive. Pain: Unable to use pain scale. Patient is jd3 intubated. Neuro: Castrejon Agitation-Sedation Scale (RASS): -5 Unarousable Level of Consciousness is unresponsive, Pupils are fixed, dilated. Cardiovascular: Rhythm is sinus bradycardia. Respiratory: Airway via oral intubation Breath sounds are clear. Derm: Skin is intact, Skin is pale, Skin temperature is cool. 07:59 Cardiac rhythm is asystole. jd3 08:10 Reassessment: URIEL TOBIN at bedside. jd3 09:25 Reassessment: Acupressure Therapist signing paperwork and talking with family. jd3 09:35 Reassessment: pt to be sent to [place], PD remains at beside and awaiting transport for body.jd3 Vital Signs: 06:30 BP 102 / 82; Pulse 41; Resp 12 A; Temp 97.2(C); Pulse Ox 77% on R/A; Weight 117.93 kg; tw5 07:38 BP 149 / 111; Pulse 115; Resp 18 A; Pulse Ox 98% on ETT vent; jd3 07:45 BP 49 / 23; Pulse 53; Resp 18; jd3 07:55 Pulse 32; Resp 18 A; jd3 07:59 Pulse 0; jd3 ED Course: 06:30 Patient has correct armband on for positive identification. tw5 06:32 Patient arrived in ED. mw2 06:40 Intubation: 7.5 Fr. ETT placed orally. Performed by Bobby Michele MD Successful on tw5 first attempt. Placement verified by CO2 detector w/ + color change, auscultating bilateral breath sounds, O2 saturation after procedure was 98 %. Ventilated with Ambu bag. 06:46 NGT: inserted 16 Fr. other Orogastric verified placement of air over stomach, verified tw5 return of gastric contents, to intermittent suction. Returned gastric contents. Orogastric Placed. 06:49 Assisted provider with central line placement. Set up central line tray. Triple lumen tw5 line placed in right femoral. Line placed by Bobby Michele MD Placement verified by blood return, Dressed with Tegaderm, Blood was collected. Before procedure, did Practitioner(s) obtain informed consent? No. Was handwashing/sanitizing done immediately prior to procedure? Yes. Was patient positioned to in a way to prevent air embolism? Yes. Was procedure site sterilized? Yes, with Was the site allowed to dry? Yes. During the procedure, did the Practitioner(s) maintain a sterile field? Yes. Was blood aspirated from each lumen? Yes. 06:49 Initial lab(s) drawn, sent to lab. tw5 07:10 Bobby Michele MD is Attending Physician. [facility] 07:14 Rossana Acosta is Primary Nurse. tw5 07:16 Triage completed. tw5 07:20 Putnam cath inserted, using sterile technique, 16 Fr., by nm, balloon inflated, to jd3 gravity drainage. 07:46 AMMONIA Sent. mb7 07:46 Lipase Sent. mb7 07:46 Procalcitonin Sent. mb7 07:46 Lactate Sent. mb7 07:46 Blood Culture Adult (2) Sent. mb7 07:46 Basic Metabolic Panel Sent. mb7 07:46 Troponin HS Sent. mb7 07:46 NT PRO-BNP Sent. mb7 07:46 Magnesium Sent. mb7 07:46 LFT's Sent. mb7 07:47 Patient has correct armband on for positive identification. mb7 08:00 Police [place] [employer] called to page out the Acupressure Therapist [employer] sales consultant/ they will send an officer eb over. 08:04 Bobby Michele MD is Pronouncing Provider. chintan Administered Medications: 06:50 Drug: Atropine 1 mg Route: IVP; Site: right femoral; tw5 07:50 Follow up: Response: No adverse reaction jd3 06:50 Drug: Sodium Bicarbonate 1 amp Route: IVP; Site: right femoral; tw5 07:50 Follow up: Response: No adverse reaction jd3 06:51 Drug: EPINEPHrine 0.1mg/mL 1:10,000 1 mg Route: IVP; Site: right femoral; tw5 07:50 Follow up: Response: No adverse reaction jd3 06:53 Drug: EPINEPHrine 0.1mg/mL 1:10,000 1 mg Route: IVP; Site: right femoral; tw5 07:50 Follow up: Response: No adverse reaction jd3 06:55 Drug: NS 0.9% 1000 ml Route: IV; Rate: 1 bolus; Site: right femoral; tw5 07:50 Follow up: Response: No adverse reaction; IV Status: Completed infusion jd3 07:01 Drug: Levophed (norepinephrine) 0.1 mcg/kg/min Route: IV; Rate: calculated rate; Site: tw5 right femoral; 07:59 Follow up: Response: pt ; IV Status: Order to discontinue infusion jd3 07:02 Drug: NS 0.9% 1000 ml Route: IV; Rate: 1 bolus; Site: right femoral; tw5 07:50 Follow up: Response: No adverse reaction; IV Status: Completed infusion jd3 07:33 Drug: EPINEPHrine 0.1mg/mL 1:10,000 1 mg Route: IVP; Site: right femoral; jd3 07:50 Follow up: Response: No adverse reaction jd3 07:33 Drug: Sodium Bicarbonate 1 amp Route: IVP; Site: right femoral; jd3 07:50 Follow up: Response: No adverse reaction jd3 07:34 Drug: Calcium Chloride 10% 10 ml Route: IVP; Site: right femoral; jd3 07:50 Follow up: Response: No adverse reaction jd3 07:36 Drug: EPINEPHrine 0.1mg/mL 1:10,000 1 mg Route: IVP; Site: right femoral; jd3 07:50 Follow up: Response: No adverse reaction jd3 08:17 CANCELLED (Patient ): NS 0.9% 1000 ml IV at 1 bolus Per protocol; 1000 mL bolus jd3 08:17 CANCELLED (Patient ): Zosyn (piperacillin-tazobactam) 3.375 grams IVPB once over jd3 60 mins; (mix in NS 100 mL) Outcome: 06:30 Outcome Resuscitation successful tw5 06:54 Outcome Resuscitation successful tw5 07:59 Outcome Patient jd3 07:59 Patient : Time of 07:59 Pronounced by Bobby Michele MD jd3 07:59 Condition: jd3 10:19 Patient left the ED. jd3 Signatures: Bobby Michele MD MD cha Davies, Jonathon, RN RN jd3 Rema Dobbs mw2 Judith Recinos Tiffany tw5 Yumiko Tracey mb7 Corrections: (The following items were deleted from the chart) 07:18 06:28 Chief complaint: tw5 tw 07:23 06:29 Outcome Resuscitation successful 08:09 07:50 Reassessment: Dr. Michele with family and agreed on DNR jd3 jd3 08:14 07:33 EPINEPHrine 0.1mg/mL 1:10,000 1 mg IVP in left femoral jd3 jd3
[2021-12-05 08:33] LABS: Bilirubin Direct 0.6 mg/dL (0-0.2); Bilirubin Total 1.4 mg/dL (0.2-1.0); Magnesium 2.5 mg/dL (1.8-2.4); Potassium 4.5 mmol/L (3.5-5.1); Protein, Total 5.8 g/dL (6.4-8.2); Troponin High Sensitivity 56.1 pg/mL (<58.9)
[2021-12-05 10:53] VITALS: O2SAT 98
[2021-12-05 10:54] VITALS: BP 49/23
== END 2021-12-05 10:19 | disposition expired ==
LOC: ER 06:31
DX: J96.00 Acute respiratory failure, unspecified whether with hypoxia or hypercapnia (principal); R65.21 Severe sepsis with septic shock; I46.8 Cardiac arrest due to other underlying condition; E66.01 Morbid (severe) obesity due to excess calories
CPT/HCPCS: 96365; 87040 ×2; 85025; 80048; 36415; 82140; 83735; 85610; 80076; 83605; 84484; 83690; 84145; 83880; 94002; 31500; 51702; 96375; 92950; 99291; 99292; J0171 ×2; J7030